=== PATIENT | female | born 1975 | race Caucasian/White ===

== ENCOUNTER 2023-04-25 08:01 | Outpatient (OUT) | payer BC, SELFPAY ==
[2023-04-25 08:34] LABS: Eosinophils Absolute Auto 0.1 10^3/uL (0.0-0.7); Hematocrit 40.5 % (36.0-48.0); Hemoglobin 13.3 g/dL (12.0-16.0); Immature Granulocytes Abs Auto 0.01 10^3/uL (0.00-0.03); Immature Granulocytes Pct Auto 0.3 % (0.0-0.5); Lymphocytes Absolute Auto 1.4 10^3/uL (1.2-3.8); Lymphocytes Percent Auto 36.5 % (20.5-60.0); Mean Corpuscular HGB Conc 32.8 g/dL (29.9-35.2); Mean Corpuscular Hemoglobin 30.6 pg (26.7-34.0); Mean Corpuscular Volume 93.1 fL (81.0-99.0); Mean Platelet Volume 10.8 fL (9.5-13.5); Monocytes Absolute Auto 0.3 10^3/uL (0.3-0.8); Monocytes Percent Auto 8.1 % (1.7-12.0); Neutrophils Absolute Auto 2.1 10^3/uL (1.4-6.5); Neutrophils Percent Auto 52.1 % (43.0-75.0); Platelet Count 245 10^3/uL (150-450); Red Blood Count 4.35 10^6/uL (4.20-5.40); Red Cell Distribution Width 12.5 % (11.0-15.0)
[2023-04-25 09:09] LABS: Alanine Aminotransferase 20 U/L (14-59); Albumin Globulin Ratio 0.8; Albumin Level 3.3 g/dL (3.4-5.0); Alkaline Phosphatase 55 U/L (46-116); Anion Gap 11.8; Aspartate Amino Transferase 17 U/L (15-37); BUN Creatinine Ratio 20.6; Bilirubin Total 0.4 mg/dL (0.2-1.0); Calcium 8.7 mg/dL (8.5-10.1); Carbon Dioxide 28.2 mmol/L (21.0-32.0); Chloride 103 mmol/L (98-107); Chol HDL Ratio 2.9; Cholesterol 209 mg/dL (<=200); Estimated GFR (African America >60 (>=60); Estimated GFR (Non-African Ame >60 (>=60); Free T3 2.52 pg/mL (2.18-3.98); Glucose 94 mg/dL (74-106); HDL Cholesterol 73 mg/dL (40-60); Sodium 139 mmol/L (136-145); Thyroid Stimulating Hormone 1.341 uIU/mL (0.358-3.740); Total Protein 7.3 g/dL (6.4-8.2); Triglycerides 63 mg/dL (<=150); VLDL CHOLESTEROL 12.6 mg/dL
[2023-04-25 12:43] LABS: Estimated Average Glucose 103 mg/dL; Glycohemoglobin A1C 5.2 % (4.5-6.2)
== END 2023-04-25 08:02 | disposition home or self-care (01) ==
LOC: LAB 08:02
PROVIDERS: PCP Family Medicine; Visit Provider Family Medicine
DX: Z00.00 Encounter for general adult medical examination without abnormal findings (principal)
CPT/HCPCS: 36415; 80053; 80061; 82306; 83036; 84436; 84443; 84481; 85025

== ENCOUNTER 2023-12-22 07:29 | Outpatient (OUT) | payer BC, SELFPAY ==
--- NOTE | 2023-12-22 07:32 | MM_ITS ---
Patient Name: LETI FRASER MR#: [id number] : 1975 Exam Date: 12/22/2023 Ordering Doctor: DR. ZAKIA CRUZ D.O. RADIOLOGY REPORT PROCEDURE: MM TOMOSYNTHESIS SCREENING BI COMPARISON: MG MAMM SCREEN 3D MAZIN CAD, 02/25/2022. MG MAMM SCREEN 3D MAZIN CAD, 01/29/2021. MG MAMM SCREEN MAZIN W CAD, 12/20/2019. MG MAMM MAZIN SCRN W CAD DIG, 11/21/2012. INDICATIONS: Screening Calculator Name NCI Breast Cancer Risk Assessment Tool 5 Year Breast Cancer Risk 0.90% Lifetime Breast Cancer Risk 9.30% Personal Breast Cancer No Personal Ovarian Cancer No Treatments None Family Cancers Grandmother-maternal with breast cancer at age 70; Grandmother-paternal with breast cancer at age 70. LOCATION: [facility] BREAST COMPOSITION: The breasts are extremely dense, which lowers the sensitivity of mammography. FINDINGS: DIAGNOSTIC CATEGORY 1--NEGATIVE. RIGHT BREAST: No significant suspicious finding. No significant change has occurred. LEFT BREAST: No significant suspicious finding. No significant change has occurred. RECOMMENDATIONS: ROUTINE MAMMOGRAM AND CLINICAL EVALUATION IN 12 MONTHS. PLEASE NOTE: A NORMAL MAMMOGRAM DOES NOT EXCLUDE THE POSSIBILITY OF BREAST CANCER. A CLINICALLY SUSPICIOUS PALPABLE LUMP SHOULD BE BIOPSIED. Dictated by: Heladio Willis M.D. on 12/22/2023 at 10:26 Approved by: Heladio Willis M.D. on 12/22/2023 at 10:30
== END 2023-12-22 07:30 | disposition home or self-care (01) ==
LOC: MAMMO 07:29
PROVIDERS: PCP Family Medicine; Visit Provider Obstetrics & Gynecology
DX: Z12.31 Encounter for screening mammogram for malignant neoplasm of breast (principal); Z80.3 Family history of malignant neoplasm of breast
CPT/HCPCS: 77063; 77067

== ENCOUNTER 2024-04-23 13:11 | Outpatient (OUT) | payer BC, SELFPAY ==
--- NOTE | 2024-04-23 13:14 | XR_ITS ---
The [address] [address] Patient Name: LETI FRASER MRN: [id number] date: 1975 Sex: F Assigned Patient Location: [facility] Current Patient Location: Accession/Order Number: [id number] Exam Date: 04/23/2024 13:16 Report Date: 04/24/2024 16:04 At the request of: MASSIMO CORADO Procedure: XR hip BI w PEL 1V EXAMINATION: XR hip BI w PEL 1V HISTORY: Bilateral Hip Pain COMPARISON: No relevant comparison available. FINDINGS: RIGHT FINDINGS: BONES: No significant arthropathy or acute abnormality. SOFT TISSUES: No visible soft tissue swelling. OTHER: Negative. LEFT FINDINGS: BONES: No significant arthropathy or acute abnormality. SOFT TISSUES: No visible soft tissue swelling. OTHER: Negative. XR/XR hip BI w PEL 1V IMPRESSION: RIGHT CONCLUSION: No acute bone abnormality or significant degenerative changes. LEFT CONCLUSION: No acute bone abnormality or significant degenerative changes. Electronically authenticated by: RICKEY SALMON Date: 04/24/2024 16:04
--- OUTSIDE RECORDS SUMMARY | 2024-04-23 13:29 | XMS_ITS | CCD ---
Author Organization [facility]iniSym[facility] Care Team Providers Care Soil Conservation Aide Name Role Phone PHYSICIAN, DEFAULT Unavailable Unavailable PHYSICIAN, DEFAULT Unavailable Unavailable Unavailable Unavailable ELIZABETH GOMEZ Admitting Unavailable ELIZABETH GOMEZ Attending Unavailable KIEPERT, GONZALEZ Primary Care Unavailable DR ALO MARKS V Consulting Unavailable ELIZABETH GOMEZ Consulting Unavailable SALVADORFRANCIA TROY Admitting Unavailable SALVADORFRANCIA ALVARADO Attending Unavailable KIEPERT, EXETER Primary Care Unavailable FRANCIA FRANCO Consulting Unavailable JACEK, DR KEYS Admitting Unavailable DR MASSIMO READ Attending Unavailable KIEPERT, GONZALEZ Primary Care Unavailable DR MASSIMO READ Consulting Unavailable KIEPERT, GONZALEZ Primary Care Unavailable SALVADOR, FRANCIA Admitting Unavailable SALVADORFRANCIA TROY Attending Unavailable SALVADORFRANCIA TROY Consulting Unavailable ANGELICA LOWERY Admitting Unavailable ANGELICA LOWERY Attending Unavailable KIEPERT, GONZALEZ Primary Care Unavailable ANGELICA LOWERY Consulting Unavailable Leon, Ms. Odalys Gusman Referring Unavailable Leon, Ms. Odalys Gusman Attending Unavailable ELIZABETH GOMEZ Attending Unavailable Massimo Read MD Primary Care Provider [phone] Allergies Allergy Classification Reported Allergen(s) Allergy Type Date of Onset Reaction(s) Facility (7 sources) Trimethoprim; Translations: [Trimethoprim TABS] Drug Allergy 9 [facility] Work Phone: (4 sources) Sulfamethoxazole-TMP DS TABS; Translations: [Sulfamethoxazole-TM P DS TABS] Allergy to drug (finding) [facility] Work Phone: (3 sources) Sulfamethoxazole Allergy to substance 9 [facility] Medications Current Medications Medication Drug Class(es) Dates Sig (Normalized) Sig (Original) ALPRAZolam 0.25 mg oral tablet (3 sources) Benzodiazepine ALPRAZolam (Xana x) 0.25 MG tablet 1 (one) time each day at the same time. Active clobetasol propionate 0.0005 mg/mg topical ointment (3 sources) Corticosteroid Start: 2022 clobetasol (Temovate) 0.05 % ointment Indications: Vulvar irritation Apply thin light layer to affected tissues externally twice daily x 14 days, daily x 7 days, then every other day x 7 days 45 g 1 2022 Active ethinyl estradiol 0.035 mg / norgestimate 0.25 mg oral tablet (5 sources) Progestin, Estrogen Start: 12-05-2023 End: 12-04-2024 norgestimate-ethiny l estradiol (Munira) 0.25-35 MG-MCG tablet Indications: Oral contraceptive pill surveillance Take 1 tablet by mouth Daily 84 tablet 3 12/05/2023 12/04/2024 Active Start: 01-26-2023 End: 01-26-2024 norgestimate-ethinyl estradi ol (Munira) 0.25-35 MG-MCG tablet Indications: Encounter for surveillance of contraceptive pills Take 1 tablet by mouth in the morning. 28 tablet 12 01/26/2023 12/05/2023 Discontinued MULTIPLE VITAMIN IV (3 sources) MULTIPLE VITAMIN IV 1 (one) time each day at the same time. Active phentermine hydrochloride 37.5 mg oral tablet (2 sources) Sympathomimetic Amine Anorectic Start: 024 Adipex-P 37.5 MG tablet 1 (one) time each day at the same time 11/06/2023 Active vitamin b12 1 mg oral tablet (3 sources) Vitamin B12 take 1 tablet by mouth in the morning cyanocobalamin (Vitamin B-12) 1000 MCG tablet Take 1,000 mcg by mouth in the morning. Active Completed/Discontinued Medications Medication Drug Class(es) Dates Sig (Normalized) Sig (Original) amoxicillin 875 mg / clavulanate 125 mg oral tablet (2 sources) Penicillin-class Antibacterial Start: 10-11-19 End: 03-24-19 take 1 tablet by mouth every twelve hours Amoxicillin-Pot Clavulanate 875-125 MG Oral Tablet take 1 tablet by mouth every 12 hours for 7 days Quantity: 14 Refills: 0 Ordered: 11-Oct-2019 DO Start : 11-Oct-2019 End : 24-Mar-2021 Complete azithromycin 250 mg oral tablet (2 sources) Macrolide Antimicrobial Start: 01-09-20 End: 03-24-19 Azithromycin 250 MG Oral Tablet TAKE 2 TABLETS BY MOUTH TODAY, THEN TAKE 1 TABLET DAILY FOR 4 DAYS Quantity: 6 Refills: 0 Ordered: 09-Jan-2020 DO Start : 09-Jan-2020 End : 24-Mar-2021 Complete betamethasone 0.5 mg/ml / clotrimazole 10 mg/ml topical cream (4 sources) Azole Antifungal, Corticosteroid Start: 04-18-19 Clotrimazole-Betameth asone 1-0.05 % External Cream APPLY TO AFFECTED AREA TWICE A DAY Quantity: 60 Refills: 0 Ordered: 18-Apr-2019 DO Start : 18-Apr-2019 Active cyclobenzaprine hydrochloride 10 mg oral tablet (2 sources) Muscle Relaxant Start: 12-30-19 End: 03-24-19 22 take 1 tablet by mouth once daily at bedtime as needed Cyclobenzaprine HCl - 10 MG Oral Tablet TAKE 1 TABLET BY MOUTH EVERY DAY AT BEDTIME NEEDED Quantity: 30 Refills: 0 Ordered: 30-Dec-2019 DO Start : 30-Dec-2019 End : 24-Mar-2021 Complete DULoxetine 60 mg delayed release oral capsule (6 sources) Serotonin and Norepinephrine Reuptake Inhibitor Start: 03-24-19 22 take 1 capsule by mouth at bedtime DULoxetine HCl - 60 MG Oral Capsule Delayed Release Particles take 1 capsule by mouth at bedtime Quantity: 30 Refills: 0 Ordered: 24-Mar-2021 Odalys Cruz Start : 24-Mar-2021 Active fludrocortisone acetate 0.1 mg oral tablet (4 sources) Start: 04-08-19 21 take 1 tablet by mouth once daily Fludrocortisone Acetate 0.1 MG Oral Tablet TAKE 1 TABLET BY MOUTH EVERY DAY Quantity: 90 Refills: 0 Ordered: 05-May-2022 Odalys Cruz Start : 08-Apr-2020 Active Needs follow-up appointment for any further refills meclizine hydrochloride 25 mg oral tablet (2 sources) Antiemetic Start: 02-20-20 End: 03-24-19 take 1 tablet by mouth three times daily as needed Meclizine HCl - 25 MG Oral Tablet TAKE 1 TABLET BY MOUTH 3 TIMES A DAY NEEDED Quantity: 90 Refills: 0 Ordered: 20-Feb-2020 DO Start : 20-Feb-2020 End : 24-Mar-2021 Complete methylPREDNISolone 4 mg oral tablet (2 sources) Corticosteroid Start: 04-17-19 End: 03-24-19 methylPREDNISolone 4 MG Oral Tablet USE DIRECTED. Quantity: 1 Refills: 1 Ordered: 17-Apr-2020 Colton Mims MD Start : 17-Apr-2020 End : 24-Mar-2021 Complete predniSONE 20 mg oral tablet (2 sources) Start: 12-30-19 End: 03-24-19 take 2 tablets by mouth once daily predniSONE 20 MG Oral Tablet TAKE 2 TABLETS BY MOUTH EVERY DAY FOR 5 DAYS Quantity: 10 Refills: 0 Ordered: 30-Dec-2019 DO Start : 30-Dec-2019 End : 24-Mar-2021 Complete Sprintec 28 0.25-35 MG-MCG Oral Tablet (4 sources) Start: 12-25-19 take 1 tablet by mouth once daily Sprintec 28 0.25-35 MG-MCG Oral Tablet TAKE 1 TABLET BY MOUTH EVERY DAY Quantity: 84 Refills: 0 Ordered: 25-Dec-2019 DO Start : 25-Dec-2019 Active tranexamic acid 650 mg oral tablet (2 sources) Antifibrinolytic Agent Start: 04-18-19 End: 03-24-19 take 2 tablets by mouth three times daily Tranexamic Acid 650 MG Oral Tablet TAKE 2 TABLETS BY MOUTH 3 TIMES A DAY FOR 5 DAYS Quantity: 30 Refills: 0 Ordered: 18-Apr-2019 DO Start : 18-Apr-2019 End : 24-Mar-2021 Complete Problems Active Problems Problem Classification Problem Date Documented Date Episodic/Chronic Anxiety disorders (4 sources) Anxiety; Translations: [Anxiety state, unspecified] Chronic Cardiac dysrhythmias (4 sources) Postural orthostatic tachycardia syndrome ; Translations: [Other specified cardiac dysrhythmias] Chronic Cardiac dysrhythmias (4 sources) Palpitations; Translations: [Palpitations] Episodic Conditions associated with dizziness or vertigo (8 sources) Postural dizziness; Translations: [Dizziness and giddiness] Episodic Contraceptive and procreative management (2 sources) Oral contraception; Translations: [Encounter for surveillance of contraceptive pills] 12-05-2023 Episodic Deficiency and other anemia (1 source) Anemia, unspecified; Translations: [ANEMIA UNSPECIFIED] Onset: 12-03-2021 Episodic Nutritional deficiencies (1 source) Vitamin D deficiency, unspecified; Translations: [VITAMIN D DEFICIENCY UNSPECIFIED] Onset: 12-03-2021 Chronic Other screening for suspected conditions (not mental disorders or infectious disease) (8 sources) Encounter for screening mammogram for malignant neoplasm of breast; Translations: [Cancer cervix screening status] Onset: 02-25-2022 Episodic Residual codes; unclassified (1 source) Family history of malignant neoplasm of breast; Translations: [FAMILY HX MALIG NEOPLASM OF BREAST] Onset: 02-28-2022 Episodic Syncope (4 sources) Near syncope; Translations: [Syncope and collapse] Episodic Unclassified (2 sources) CONTACT W/AND (SUSP) EXPOS COVID-19; Translations: [CONTACT W/AND (SUSP) EXPOS COVID-19] Onset: 10-12-2021 Viral infection (1 source) COVID-19; Translations: [COVID-19] Onset: 10-12-2021 Past or Other Problems Problem Classification Problem Date Documented Da te Episodic/Chronic Immunizations and screening for infectious disease (4 sources) Encounter for immunization; Translations: [ENCOUNTER FOR IMMUNIZATION] Onset: 03-23-2021 Episodic Unclassified (1 source) CONTACT W/AND (SUSP) EXPOS COVID-19; Translations: [CONTACT W/AND (SUSP) EXPOS COVID-19] Onset: 10-11-2021 Results Test Name Value Interpretation Reference Range Facility Office Visit (Neuro-General) on 10-19-2022 Follow-up visit Patient Discussion/Summary Discussed role of medicine, importance of taking medications, potential risks, benefits, and precautions to be taken. Reviewed sleep hygiene and dietary modifications. Follow-up in 1 year. Diagnoses/Problems Assessed POTS (postural orthostatic tachycardia syndrome) (427.89) (G90.A) Postural dizziness (780.4) (R42) Palpitations (785.1) (R00.2) Near syncope (780.2) (R55) Orders POTS (postural orthostatic tachycardia syndrome) Renew: Fludrocortisone Acetate 0.1 MG Oral Tablet; TAKE 1 TABLET BY MOUTH EVERY DAY Chief Complaint POTS Neurologic Evaluation. An interactive audio and video telecommunication system which permits real time communications between the patient (at the originating site) and provider (at the distant site) was utilized to provide this telehealth service. History of Present Illness Patient being assessed today for follow-up of POTS. She reports that her symptoms have been well controlled. Orthostatics are stable. Denies palpitations. Denies episodes of syncope. We will continue the fludrocortisone as she has been taking it. Discussed role of medicine, importance of taking medications, potential risks, benefits, and precautions to be taken. Reviewed sleep hygiene and dietary modifications. Follow-up in 1 year. This note was created with voice recognition software and was not corrected for typographical or grammatical errors Review of Systems Per HPI Active Problems Problems Anxiety (300.00) (F41.9) Dizziness and giddiness (780.4) (R42) Near syncope (780.2) (R55) Palpitations (785.1) (R00.2) Postural dizziness (780.4) (R42) POTS (postural orthostatic tachycardia syndrome) (427.89) (G90.A) Allergies Medication Sulfamethoxazole-TMP DS TABS Recorded By: Colton Mims; 03/02/2020 10:38:15 AM Trimethoprim TABS Recorded By: Colton Mims; 03/02/2020 10:38:15 AM Current Meds Medication NameInstruction Clotrimazole-Betameth asone 1-0.05 % External CreamAPPLY TO AFFECTED AREA TWICE A DAY DULoxetine HCl - 60 MG Oral Capsule Delayed Release Particlestake 1 capsule by mouth at bedtime Fludrocortisone Acetate 0.1 MG Oral TabletTAKE 1 TABLET BY MOUTH EVERY DAY Sprintec 28 0.25-35 MG-MCG Oral TabletTAKE 1 TABLET BY MOUTH EVERY DAY Signatures Electronically signed by : SID Jiang; Oct 19 2022 3:35PM EST (Author) Normal TouchNUMBER26 MG MAMM SCREEN 3D MAZIN CADon 02-25-2022 MG MAMM SCREEN 3D MAZIN CAD Patient: DELANEY FRASER Exam Date: 02/25/2022 : 1975 Gender:F Ordering : DR. ELIZABETH GOMEZ D.O. Admission #: [id number] Family : Order #: [id number] CLICK HERE TO VIEW EXAM RADIOLOGY REPORT PROCEDURE: MAMMOGRAM SCREENING 3D BILATERAL CAD COMPARISON: MG MAMM SCREEN MAZIN W CAD, 12/20/2019. MG MAMM SCREEN 3D MAZIN CAD, 01/29/2021. INDICATIONS: Screening mammography Calculator Name NCI Breast Cancer Risk Assessment Tool 5 Year Breast Cancer Risk 0.90% Lifetime Breast Cancer Risk 9.60% Personal Breast Cancer No Personal Ovarian Cancer No Treatments None Family Cancers Grandmother-maternal with breast cancer at age 70; Grandmother-paternal with breast cancer at age 70. LOCATION: [facility] BREAST COMPOSITION: Extremely dense, which lowers the sensitivity of mammography. FINDINGS: DIAGNOSTIC CATEGORY 1--NEGATIVE. NO CHANGE FROM COMPARISON ASSESSMENT. Scattered benign-appearing lymph nodes are present. RIGHT BREAST: No significant suspicious finding. LEFT BREAST: No significant suspicious finding. RECOMMENDATIONS: ROUTINE MAMMOGRAM AND CLINICAL EVALUATION IN 12 MONTHS. PLEASE NOTE: A NORMAL MAMMOGRAM DOES NOT EXCLUDE THE POSSIBILITY OF BREAST CANCER. A CLINICALLY SUSPICIOUS PALPABLE LUMP SHOULD BE BIOPSIED. Dictated by: Alo Marks MD on 02/25/2022 at 09:42 Approved by: Alo Marks MD on 02/25/2022 at 09:49 Normal [facility] VIT D 25-OH LABCORPon 2021 Vitamin D, 25-Hydroxy 48.6 ng/mL Normal 30.0-100.0 [facility] Comment on above: Result Comment: Fior min D deficiency has been defined by the [place] of Medicine and an Endocrine Society practice guideline as a level of serum 25-OH vitamin D less than 20 ng/mL (1,2). The Endocrine Society went on to further define vitamin D insufficiency as a level between 21 and 29 ng/mL (2). 1. IOM ([place] of Medicine). 2010. Dietary reference intakes for calcium and D. [place]: The National Academies Press. 2. Mac DIAZ, Latrice JUÁREZ, Rosa DAVILA, et al. Evaluation, treatment, and prevention of vitamin D deficiency: an Endocrine Society clinical practice guideline. JCEM. 2010; 96(7):1911-30. Performed By: #### V ITADLC #### [facility] [address] [address] [address] Kiesha Monk T4 LABCORPon 11-27-2021 T4 [Mass/Vol] 6.9 ug/dL Normal 4.5-12.0 [facility] Comment on above: Performed By: #### T 4LC #### [facility] [address] [place] [address] Dr. Kiesha Monk CBC AUTO DIFFon 11-26-2021 BASO # 0.0 103/ul Normal 0.0-0.1 [facility] Comment on above: Performed By: #### C BC #### [facility] [address] [place] [address] Dr. Kiesha Monk Basophils/100 WBC (Bld) 0.5 % Normal 0.2-2.0 [facility] Comment on above: Performed By: #### C BC #### [facility] [address] [place] [address] Dr. Kiesha Monk EO # 0.1 103/ul Normal 0.0-0.7 [facility] Comment on above: Performed By: #### C BC #### [facility] [address] [place] [address] Dr. Kiesha Monk Eosinophils/100 WBC (Bld) 1.2 % Normal 0.9-7.0 [facility] Comment on above: Performed By: #### C BC #### [facility] [address] [place] [address] Dr. Kiesha Monk Erythrocyte distribution width (RBC) [Ratio] 12.6 % Normal 11.0-15.0 [facility] Comment on above: Performed By: #### C BC #### [facility] [address] [place] [address] Dr. Kiesha Monk Hematocrit (Bld) [Volume fraction] 40.8 % Normal 36.0-48.0 [facility] Comment on above: Performed By: #### C BC #### [facility] [address] [place] [address] Dr. Kiesha Monk Hemoglobin (Bld) [Mass/Vol] 13.7 g/dL Normal 12.0-16.0 [facility] Comment on above: Performed By: #### C BC #### [facility] [address] [place] [address] Dr. Kiesha Monk IG # 0.01 10e3/ul Normal 0.00-0.03 [facility] Comment on above: Performed By: #### C BC #### [facility] [address] [place] [address] Dr. Kiesha Monk IG % 0.2 % Normal 0.0-0.5 [facility] Comment on above: Performed By: #### C BC #### [facility] [address] [place] [address] Dr. Kiesha Monk LYMPH # 1.8 103/ul Normal 1.2-3.8 [facility] Comment on above: Performed By: #### C BC #### [facility] [address] [place] [address] Dr. Kiesha Monk Lymphocytes/100 WBC (Bld) 31.3 % Normal 20.5-60.0 [facility] Comment on above: Performed By: #### C BC #### [facility] [address] [place] [address] Dr. Kiesha Monk MANUAL DIFF REQ NO Normal [facility] Comment on above: Performed By: #### C BC #### [facility] [address] [place] [address] Dr. Kiesha Monk MCH (RBC) [Entitic mass] 31.6 pg Normal 26.7-34.0 [facility] Comment on above: Performed By: #### C BC #### [facility] [address] [place] [address] Dr. Kiesha Monk MCHC (RBC) [Mass/Vol] 33.6 g/dL Normal 29.9-35.2 [facility] Comment on above: Performed By: #### C BC #### [facility] [address] [place] [address] Dr. Kiesha Monk MCV (RBC) [Entitic vol] 94.2 fL Normal 81.0-99.0 [facility] Comment on above: Performed By: #### C BC #### [facility] [address] [place] [address] Dr. Kiesha Monk MONO # 0.5 103/ul Normal 0.3-0.8 [facility] Comment on above: Performed By: #### C BC #### [facility] [address] [place] [address] Dr. Kiesha Monk Monocytes/100 WBC (Bld) 8.2 % Normal 1.7-12.0 [facility] Comment on above: Performed By: #### C BC #### [facility] [address] [place] [address] Dr. Kiesha Monk NEUT # 3.3 103/ul Normal 1.4-6.5 [facility] Comment on above: Performed By: #### C BC #### [facility] [address] [place] [address] Dr. Kiesha Monk Neutrophils/100 WBC (Bld) 58.6 % Normal 43.0-75.0 [facility] Comment on above: Performed By: #### C BC #### [facility] [address] [place] [address] Dr. Kiesha Monk Platelet mean volume (Bld) [Entitic vol] 10.7 fL Normal 9.5-13.5 [facility] Comment on above: Performed By: #### C BC #### [facility] [address] [place] [address] Dr. Kiesha Monk PLT 210 103/ul Normal 150-450 [facility] Comment on above: Performed By: #### C BC #### [facility] [address] [place] [address] Dr. Kiesha Monk RBC 4.33 106/ul Normal 4.20-5.40 [facility] Comment on above: Performed By: #### C BC #### [facility] [address] [place] [address] Dr. Kiesha Monk WBC 5.7 103/ul Normal 4.0-11.0 [facility] Comment on above: Performed By: #### C BC #### [facility] [address] [place] [address] Dr. Kiesha Monk FREE T3on 11-26-2021 FREE T3 2.65 pg/mlL Normal 2.18-3.98 [facility] Comment on above: Performed By: #### T SH, LIPID, CMP, FT3 #### [facility] [address] [address] [address] Kiesha Monk GLYCOHEMOGLOBIN A1Con 2021 ADA RECOMMENDATION SEE BELOW Normal [facility] Comment on above: Result Comment: ADA RECOMMENDED LIMIT 4.0 - 6.0 ADA THERAPEUTIC TARGET < 7.0 ACTION SUGGESTED > 7.0 Performed By: #### A 1C #### [facility] [address] [address] [address] Kiesha Monk Glucose [Mass/Vol] 103 mg/dL Normal [facility] Comment on above: Performed By: #### A 1C #### [facility] [address] [address] [address] Kiesha Monk HbA1c (Bld) [Mass fraction] 5.2 % Normal 4.5-6.2 [facility] Comment on above: Performed By: #### A 1C #### [facility] [address] [address] [address] Kiesha Monk LIPID PROFILEon 11-26-2021 CHOL-HDL RATIO NORM SEE BELOW Normal [facility] Comment on above: Result Comment: 3.3 - 4.4 LOW RISK 4.4 - 7.1 AVERAGE RISK 7.1 - 11.0 MODERATE RISK >11.0 HIGH RISK Performed By: #### T SH, LIPID, CMP, FT3 #### [facility] [address] [address] [address] Kiesha Monk Cholesterol [Mass/Vol] 225 mg/dL Critically high <=200 [facility] Comment on above: Performed By: #### T SH, LIPID, CMP, FT3 #### [facility] [address] [address] [address] Kiesha Monk Cholesterol in HDL [Mass/Vol] 70 mg/dL Critically high 40-60 [facility] Comment on above: Performed By: #### T SH, LIPID, CMP, FT3 #### [facility] [address] [address] [address] Kiesha Monk Cholesterol in LDL [Mass/Vol] 140.4 mg/dL Normal [facility] Comment on above: Performed By: #### T SH, LIPID, CMP, FT3 #### [facility] [address] [address] [address] Kiesha Monk Cholesterol.total/C holesterol in HDL [Mass ratio] 3.2 {ratio} Normal [facility] Comment on above: Performed By: #### T SH, LIPID, CMP, FT3 #### [facility] [address] [address] [address] Kiesha Monk HDL NORMAL > or = 60 mg/dl - LO W CARDIOVASCULAR RISK <40 mg/dl - HIGH CARDIOVASCULAR RISK Normal [facility] Comment on above: Performed By: #### T SH, LIPID, CMP, FT3 #### [facility] [address] [address] [address] Kiesha Monk LDL CALC NORMAL SEE BELOW Normal [facility] Comment on above: Result Comment: <100 mg/dl OPTIMAL 100 - 129 mg/dl NEAR OR ABOVE OPTIMAL 130 - 159 mg/dl BORDERLINE HIGH 160 - 189 mg/dl HIGH >190 mg/dl VERY HIGH Performed By: #### T SH, LIPID, CMP, FT3 #### [facility] [address] [address] [address] Kiesha Monk Triglyceride [Mass/Vol] 73 mg/dL Normal <=150 [facility] Comment on above: Performed By: #### T SH, LIPID, CMP, FT3 #### [facility] [address] [address] [address] Kiesha Monk VLDL CALC 14.6 mg/dL Normal [facility] Comment on above: Performed By: #### T SH, LIPID, CMP, FT3 #### [facility] [address] [address] [address] Kiesha Monk PROF 14(COMP METB)on 022 Albumin [Mass/Vol] 3.6 g/dL Normal 3.4-5.0 [facility] Comment on above: Performed By: #### T SH, LIPID, CMP, FT3 #### [facility] [address] [place] [address] Dr. Kiesha Monk Albumin/Globulin [Mass ratio] 1.0 {ratio} Normal [facility] Comment on above: Performed By: #### T SH, LIPID, CMP, FT3 #### [facility] [address] [place] [address] Dr. Kiesha Monk ALP [Catalytic activity/Vol] 63 U/L Normal 46-116 [facility] Comment on above: Performed By: #### T SH, LIPID, CMP, FT3 #### [facility] [address] [place] [address] Dr. Kiesha Monk ALT [Catalytic activity/Vol] 23 U/L Normal 14-59 [facility] Comment on above: Performed By: #### T SH, LIPID, CMP, FT3 #### [facility] [address] [place] [address] Dr. Kiesha Monk Anion gap [Moles/Vol] 10.4 mmol/L Normal [facility] Comment on above: Performed By: #### T SH, LIPID, CMP, FT3 #### [facility] [address] [place] [address] Dr. Kiesha Monk AST [Catalytic activity/Vol] 24 U/L Normal 15-37 [facility] Comment on above: Performed By: #### T SH, LIPID, CMP, FT3 #### [facility] [address] [place] [address] Dr. Kiesha Monk Bilirubin [Mass/Vol] 0.5 mg/dL Normal 0.2-1.0 [facility] Comment on above: Performed By: #### T SH, LIPID, CMP, FT3 #### [facility] [address] [place] [address] Dr. Kiesha Monk Calcium [Mass/Vol] 9.1 mg/dL Normal 8.5-10.1 [facility] Comment on above: Performed By: #### T SH, LIPID, CMP, FT3 #### [facility] [address] [place] [address] Dr. Kiesha Monk Chloride [Moles/Vol] 103 mmol/L Normal 98-107 [facility] Comment on above: Performed By: #### T SH, LIPID, CMP, FT3 #### [facility] [address] [address] [address] Kiesha Monk CO2 [Moles/Vol] 29.8 mmol/L Normal 21.0-32.0 [facility] Comment on above: Performed By: #### T SH, LIPID, CMP, FT3 #### [facility] [address] [place] [address] Dr. Kiesha Monk Creatinine [Mass/Vol] 0.81 mg/dL Normal 0.55-1.02 [facility] Comment on above: Performed By: #### T SH, LIPID, CMP, FT3 #### [facility] [address] [place] [address] Dr. Kiesha Monk EGFR-AF SAMMARINESE >60 Normal >=60 [facility] Comment on above: Performed By: #### T SH, LIPID, CMP, FT3 #### [facility] [address] [address] [address] Kiesha Monk EGFR-NON AF SAMMARINESE >60 Normal >=60 [facility] Comment on above: Performed By: #### T SH, LIPID, CMP, FT3 #### [facility] [address] [place] [address] Dr. Kiesha Monk Globulin (S) [Mass/Vol] 3.5 g/dL Normal [facility] Comment on above: Performed By: #### T SH, LIPID, CMP, FT3 #### [facility] [address] [address] [address] Kiesha Monk Glucose [Mass/Vol] 96 mg/dL Normal 74-106 [facility] Comment on above: Performed By: #### T SH, LIPID, CMP, FT3 #### [facility] [address] [place] [address] Dr. Kiesha Monk Potassium [Moles/Vol] 4.2 mmol/L Normal 3.5-5.1 [facility] Comment on above: Performed By: #### T SH, LIPID, CMP, FT3 #### [facility] [address] [place] [address] Dr. Kiesha Monk Protein [Mass/Vol] 7.1 g/dL Normal 6.4-8.2 [facility] Comment on above: Performed By: #### T SH, LIPID, CMP, FT3 #### [facility] [address] [place] [address] Dr. Kiesha Monk Sodium [Moles/Vol] 139 mmol/L Normal 136-145 [facility] Comment on above: Performed By: #### T SH, LIPID, CMP, FT3 #### [facility] [address] [place] [address] Dr. Kiesha Monk Urea nitrogen [Mass/Vol] 13.0 mg/dL Normal 7.0-18.0 [facility] Comment on above: Performed By: #### T SH, LIPID, CMP, FT3 #### [facility] [address] [place] [address] Dr. Kiesha Monk Urea nitrogen/Creatinine [Mass ratio] 16.0 mg/mg Normal [facility] Comment on above: Performed By: #### T SH, LIPID, CMP, FT3 #### [facility] [address] [place] [address] Dr. Kiesha Monk TSHon 11-26-2021 TSH 2.116 uIU/mL Normal 0.358-3.740 [facility] Comment on above: Performed By: #### T SH, LIPID, CMP, FT3 #### [facility] [address] [place] [address] Dr. Kiesha Monk ASYMPTOMATIC COVID-19 ANTIGE Non 10-11-2021 EUA Statement SEE BELOW Normal [facility] Comment on above: Result Comment: This test has not been FDA cleared or approved, but has been authorized by the FDA under an Emergency Use Authorization (EUA) for use by authorized laboratories certified under CLIA that meet the requirements to perform moderate or high complexity testing. This test has been authorized only for the detection of proteins from SARS-CoV-2, not for any other viruses or pathogens. The emergency use of this test is authorized for the duration of the declaration that circumstances exist justifying the authorization of emergency use of in vitro diagnostic tests for detection and/or diagnosis of Covid-19 under section 564(b)(1) of the Act, 21 U.S.C. 360bbb-3(b)(1), unless the declaration is terminated or authorization is revoked sooner. Performed By: #### C VDAGA ####[facility] [id number] [address]Dr. Kiesha Mnok SARS-CoV-2 (COVID-19) RNA DEION+probe Ql (Unsp spec) Positive Critically abnormal NEGATIVE [facility] Comment on above: Result Comment: SARS -CoV-2 antigen present; does not rule out coinfection with other pathogens. Performed By: #### C VDAGA ####[facility] [id number] [address]Dr. Kiesha Monk Covid-19 PCR (CVDTB)on 09-17 SARS-CoV-2 (COVID-19) RNA DEION+probe Ql (Unsp spec) Detected Critically abnormal NOT DETECTED [facility] Comment on above: Result Comment: This test is not yet approved or cleared by the [place] FDA. When there are no FDA-approved or cleared tests available, and other criteria are met, FDA can make tests available under an emergency access mechanism called an Emergency Use Authorization (EUA). The EUA for this test is supported by the [employer] and Human Service's declaration that circumstances exist to justify the emergency use of in vitro diagnostics for the detection and/or diagnosis of the virus that causes COVID-19. This EUA will remain in effect for the duration of the COVID-19 declaration justifying emergency of IVDs, unless it is terminated or revoked by the FDA (after which the test may no longer be used). Performed By: #### C VDTBH #### [facility] [address] [address] [address] Kiesha Monk Provider Letter01-04-2021 Provider Letter January 04, 2021 January 04, 2021 DELANEY FRASER [address] [id number] DELANEY FRASER 1975 Dear Richard , We have been trying to reach you with no success. It is important that you return our call regarding your referral from Dr. Jacek Cuadra upon receiving this letter. Also, at the time of your call, please provide us with your current information. Thank you for your prompt attention to this matter. Sincerely, Dr. Joce Baird General Surgery office [phone] [facility] Physician Referralon 021 Physician Referral [phone] [id number] [facility] CNOVSPon 12-10-2018 CNOVSP Visit (SP) Office (HEMAS[place]) DELANEY FRASER ([id number]) 1975 F Date Time Provider Department 12/10/18 2:45 PM HENRIK CONDE) HEMASA During your visit today, we recorded the following information about you: Temperature Pulse Respiration Blood pressure 98 degrees 90/minute 18/minute 150/79 Weight Height Last Period 71.5 kg 1.682 m 11/19/18 Henrik Conde MD 12/10/2018 6:06 PM Signed PATIENT NAME: Delaney Fraser CLINIC NO.: [id number] ATTENDING PHYSICIAN: Henrik Conde MD DATE OF SERVICE: December 10, 2018 This document has been created with the use of voice recognition technology. It may contain inaccuracies, misspellings, inaccurate syntax or inappropriate word context that escaped review. Dear MARY Wheeler [address] [phone] thank you for referring Miss Delaney Fraser for an opinion regarding leukopenia. CHIEF COMPLAINT: I have low blood counts HPI: Delaney Fraser is a 43 year old year old female with no significant past medical history whom during a recent follow-up in September 2018 was noted to have a white count of 3.8. She does not recall having any prior episode of leukopenia. As any changes in medications. She denies any history of autoimmune diseases. She denies any use of supplements. As a history of heavy alcohol abuse. She denies any liver disease. She also denies any HIV risk factors. Her CBC was repeated in November 13, 2018 and at that point her CBC was normal. Current Outpatient Medications: Multivitamin capsule Take 1 capsule by mouth once daily. cyanocobalamin (VITAMIN B-12) 1,000 mcg tab Take 1,000 mcg by mouth once daily. No current facility-administered medications for this visit. ALLERGIES Allergen Reactions - Sulfamethoxazole Unknown - Trimethoprim Unknown PAST MEDICAL HISTORY Diagnosis Date - Leukopenia PAST SURGICAL HISTORY Procedure Laterality Date - COLPOSCOPY W BX CERVIX FAMILY HISTORY Problem Relation Age of Onset - Cancer Father - Cancer Maternal Grandmother Social History Socioeconomic History Marital status: Spouse name: Not on file Number of children: Not on file Years of education: Not on file Highest education level: Not on file Occupational History Not on file Social Needs Financial resource strain: Not on file Food insecurity: Worry: Not on file Inability: Not on file Transportation needs: Medical: Not on file Non-medical: Not on file Tobacco Use Smoking status: Never Smoker Smokeless tobacco: Never Used Substance and Sexual Activity Alcohol use: Yes Comment: occ. Drug use: Never Sexual activity: Not on file Lifestyle Physical activity: Days per week: Not on file Minutes per session: Not on file Stress: Not on file Relationships Social connections: Talks on phone: Not on file Gets together: Not on file Attends oriental orthodox service: Not on file Active member of club or organization: Not on file Attends meetings of clubs or organizations: Not on file Relationship status: Not on file Intimate partner violence: Fear of current or ex partner: Not on file Emotionally abused: Not on file Physically abused: Not on file Forced sexual activity: Not on file Other Topics Concerns: Not on file Social History Narrative Not on file REVIEW OF SYSTEMS GENERAL: No weight loss, malaise or fevers. No night sweats. HEENT: Negative for headaches, No changes in hearing or vision, no nose bleeds or other nasal problems. RESPIRATORY: Negative for cough, wheezing and shortness of breath CARDIOVASCULAR: Negative for chest pain, leg swelling and palpitations GI: Negative for abdominal discomfort, blood in stools or black stools and change in bowel habits : Negative for dysuria, frequency and incontinence MUSCULOSKELETAL: Negative for joint pain or swelling, back pain, and muscle pain. SKIN: Negative for lesions, rash, and itching. HEMATOLOGY/LYMPHOLOGY Negative for prolonged bleeding, bruising easily, and swollen nodes. NEURO: Negative for numbness or tingling of hands/feet. No weakness. PHYSICAL EXAMINATION: BP 150/79 Pulse 90 Temp 36.7 ?C (98 ?F) (Oral) Resp 18 Ht 168.2 cm (5' 6.24 ) Wt 71.5 kg (157 lb 9.6 oz) LMP 11/19/2018 SpO2 99% BMI 25.25 kg/m? Wt 71.5 kg (157 lb 9.6 oz) BMI 25.25 kg/m2 Last 3 Encounter Wt Readings: Date: Wt: 12/10/2018 71.5 kg (157 lb 9.6 oz) General appearance:ECOG PERFORMANCE STATUS: 0- Fully active, able to carry on all pre-disease performance w/o restriction. Patient in NAD. Skin: Skin color, texture, turgor normal. No rashes or lesions. Eyes: Anicteric sclera. Pupils are equally round and reactive to light. Extraocular movements are intact. Lymph Nodes: No cervical, supraclavicular, axillary or inguinal adenopathy. Oropharynx: Lips, mucosa, and tongue normal. Back: No pain to percussion. Negative SLR test Lungs clear to auscultation, No wheezing or rhonchi Heart: RRR without murmur, gallop, or rubs. Abdomen soft, non-tender. No masses, organomegaly Extremities: No deformities. No edema Neuro: Gait and speech normal. Reflexes normal and symmetric. Muscular strength intact. Sensation grossly intact. Rectal: Deferred : Deferred LABS: Glucose (mg/dL) Date Value 12/10/2018 134 Potassium (mmol/L) Date Value 12/10/2018 3.8 Sodium (mmol/L) Date Value 12/10/2018 139 Chloride (mmol/L) Date Value 12/10/2018 103 CO2 (mmol/L) Date Value 12/10/2018 26 Creatinine (mg/dL) Date Value 12/10/2018 0.80 BUN (mg/dL) Date Value 12/10/2018 13 Anion Gap (mmol/L) Date Value 12/10/2018 10 Calcium (mg/dL) Date Value 12/10/2018 9.1 Protein, Total (g/dL) Date Value 12/10/2018 7.0 Albumin (g/dL) Date Value 12/10/2018 4.5 Bilirubin, Total (mg/dL) Date Value 12/10/2018 0.3 Alkaline Phosphatase (U/L) Date Value 12/10/2018 52 AST (U/L) Date Value 12/10/2018 19 ALT (U/L) Date Value 12/10/2018 11 WBC Date Value Ref Range Status 12/10/2018 5.89 3.70 - 11.00 k/uL Final RBC Date Value Ref Range Status 12/10/2018 4.19 3.90 - 5.20 m/uL Final Hemoglobin Date Value Ref Range Status 12/10/2018 13.5 11.5 - 15.5 g/dL Final Hematocrit Date Value Ref Range Status 12/10/2018 39.5 36.0 - 46.0 % Final MCV Date Value Ref Range Status 12/10/2018 94.3 80.0 - 100.0 fL Final MCH Date Value Ref Range Status 12/10/2018 32.2 26.0 - 34.0 pG Final MCHC Date Value Ref Range Status 12/10/2018 34.2 30.5 - 36.0 g/dL Final RDW-CV Date Value Ref Range Status 12/10/2018 12.3 11.5 - 15.0 % Final Platelet Count Date Value Ref Range Status 12/10/2018 194 150 - 400 k/uL Final MPV Date Value Ref Range Status 12/10/2018 11.2 9.0 - 12.7 fL Final Abs Neut (ANC) Date Value Ref Range Status 12/10/2018 3.51 1.45 - 7.50 k/uL Final Lymph% Date Value Ref Range Status 12/10/2018 31.7 % Final Abs Lymph Date Value Ref Range Status 12/10/2018 1.87 1.00 - 4.00 k/uL Final [place]% Date Value Ref Range Status 12/10/2018 7.5 % Final Abs [place] Date Value Ref Range Status 12/10/2018 0.44 0.00 - 0.86 k/uL Final Abs Eosin Date Value Ref Range Status 12/10/2018 0.05 0.00 - 0.45 k/uL Final Baso% Date Value Ref Range Status 12/10/2018 0.3 % Final Abs Baso Date Value Ref Range Status 12/10/2018 <0.03 0.00 - 0.10 k/uL Final PATH: IMAGING: ASSESSMENT AND PLAN: Delaney Fraser is a 43 year old year old female with one episode of mild leukopenia which is now currently resolved. I explained the differential diagnoses of leukopenia to Delaney at great length. She has no evidence of splenomegaly and/or lymphadenopathy. She has no clinical evidence of an autoimmune disease. On repeat bloodwork her CBC appeared normal. I will check her CBC again in our office today. We'll also check her B12 folate as well as iron stores. She does have some mild fatigue which may be related to iron deficiency secondary to her history of heavy menstrual blood loss in the past. I will follow-up on the results of the blood work with her. Dear MARY Wheeler, thank you for allowing me to participate in Miss Delaney Fraser care, if there are any questions or concerns please do not hesitate to contact me at the number below. Henrik Conde M.D. Hematology/Medical Oncology [facility] [phone] CC: Benito Hodges MD - (Inactive), In Basket (Inactive) - User (Inactive) [address] [facility] [address] () [phone] (Fax Referring Provider: MARY MORFIN [[id number]] Allergies As of Date: 12/10/2018 Noted Allergy Reaction SULFAMETHOXAZOLE 12/06/2018 16 - Unknown TRIMETHOPRIM 12/06/2018 16 - Unknown Date Reviewed: 12/10/2018 Reviewed by: Shaina Stahl - Fully Assessed Reason for Visit: Leukopenia [835] Cmt: new patient consult Primary Visit Diagnosis:Leukopenia, unspecified type [D72.819] Order(s):CBC + DIFF (FOR REMOTE C USE) [SQRCBCDF] Order #: [id number] FUTURE COMP METABOLIC PANEL [SQCMP] Order #: [id number] FUTURE IRON + TIBC [SQIRON] Order #: [id number] FUTURE FERRITIN BLD [SQFERR] Order #: [id number] FUTURE VITAMIN B12 BLOOD [SQB12] Order #: [id number] FUTURE FOLATE SERUM [SQSERFOL] Order #: [id number] FUTURE IMMUNOGLOBULINS YECENIA [SQSERIMM] Order #: [id number] FUTURE Disposition: Return if symptoms worsen or fail to improve. Follow-up and Disposition History Recorded Prescriptions as of 12/10/2018 Sig: MULTIVITAMIN CAPSULE Take 1 capsule by mouth once * CYANOCOBALAMIN (VIT B-12) 1,0* Take 1,000 mcg by mouth once * Problem List As Of Date: 12/10/2018 (None) Encounter Status:Closed by HENRIK CONDE MD on 12/10/18 Normal [facility] Comp Metabolic Panelon 12-10 Albumin [Mass/Vol] 4.5 g/dL Normal 3.9-4.9 [facility] ALP [Catalytic activity/Vol] 52 U/L Normal 34-123 [facility] ALT [Catalytic activity/Vol] 11 U/L Normal 7-38 [facility] Anion gap [Moles/Vol] 10 mmol/L Normal 9-18 [facility] AST [Catalytic activity/Vol] 19 U/L Normal 13-35 [facility] Bilirubin [Mass/Vol] 0.3 mg/dL Normal 0.2-1.3 [facility] Calcium [Mass/Vol] 9.1 mg/dL Normal 8.5-10.2 [facility] Chloride [Moles/Vol] 103 mmol/L Normal 97-105 [facility] CO2 [Moles/Vol] 26 mmol/L Normal 22-30 [facility] Creatinine [Mass/Vol] 0.80 mg/dL Normal 0.58-0.96 [facility] eGFR- Amer. >60 Normal [facility] GFR/1.73 sq M predicted among non-blacks MDRD (S/P/Bld) [Vol rate/Area] mL/min/{1.73_m2} Normal [facility] Comment on above: Result Comment: eGFR (Estimated GFR) Units of measure: mL/min/1.73 meters squared eGFR is derived from the reexpressed MDRD Study equation using the following parameters: serum creatinine, age, gender and race. The creatinine assay has been calibrated to be traceable to IDMS. An eGFR <60 mL/min/1.73m2 for >3 months is consistent with chronic kidney disease. Refer to KDOQI guidelines for clinical interpretation. In patients with unstable renal function, e.g. those with acute kidney injury, the eGFR may not accurately reflect actual GFR. Glucose [Mass/Vol] 134 mg/dL High 74-99 [facility] Comment on above: Result Comment: The [place] [employer] Association (ADA) provides guidance for cutoff values for fasting glucose and random glucose. The ADA defines fasting as no caloric intake for at least 8 hours. Fasting plasma glucose results between 100 to 125 mg/dL indicate increased risk for diabetes (prediabetes). Fasting plasma glucose results greater than or equal to 126 mg/dL meet the criteria for diagnosis of diabetes. In the absence of unequivocal hyperglycemia, results should be confirmed by repeat testing. In a patient with classic symptoms of hyperglycemia or hyperglycemic crisis, random plasma glucose results greater than or equal to 200 mg/dL meet the criteria for diagnosis of diabetes. Reference: Standards of Medical Care in Diabetes 2016, [place] [employer] Association. Diabetes Care. 2016.39(Suppl 1). Potassium [Moles/Vol] 3.8 mmol/L Normal 3.7-5.1 [facility] Protein [Mass/Vol] 7.0 g/dL Normal 6.3-8.0 [facility] Sodium [Moles/Vol] 139 mmol/L Normal 136-144 [facility] Urea nitrogen [Mass/Vol] 13 mg/dL Normal 7-21 [facility] Ferritinon 12-10-2018 Ferritin [Mass/Vol] 35.1 ng/mL Normal 14.7-205.1 [facility] Comment on above: Performed By: #### I KAISER, FERR, B12, SERFOL, SERIMM #### [facility] [address] [place], [place] [id number] Folate, Serumon 12-10-2018 Folate [Mass/Vol] 13.4 ng/mL Normal >4.7 [facility] Comment on above: Performed By: #### I KAISER, FERR, B12, SERFOL, SERIMM #### [facility] [address] [place], [place] [id number] Immunoglobulins GAMon 2018 IgA [Mass/Vol] 190 mg/dL Normal 78-391 [facility] Comment on above: Performed By: #### I KAISER, FERR, B12, SERFOL, SERIMM #### [facility] [address] [phone] IgG [Mass/Vol] 1290 mg/dL Normal 717-1411 [facility] Comment on above: Performed By: #### I KAISER, FERR, B12, SERFOL, SERIMM #### [address] [place] [id number] [place] [phone] IgM [Mass/Vol] 145 mg/dL Normal 53-334 [facility] Comment on above: Performed By: #### I KAISER, FERR, B12, SERFOL, SERIMM #### [place] [phone] Iron and TIBCon 12-10-2018 Iron [Mass/Vol] 125 ug/dL Normal 41-186 [facility] Comment on above: Performed By: #### I KAISER, FERR, B12, SERFOL, SERIMM #### [address] [place] [address] [place] [phone] TIBC 344 ug/dL Normal 232-386 [facility] Comment on above: Performed By: #### I KAISER, FERR, B12, SERFOL, SERIMM #### [place] [phone] Transferrin Saturatn 36 % Normal 15-57 [facility] Comment on above: Performed By: #### I KAISER, FERR, B12, SERFOL, SERIMM #### [place] [phone] PROGRESSon 12-10-2018 PROGRESS HNO ID: [id number] Author: Henrik Conde Service: ? Author Type: Physician Type: Progress Notes Filed: 12/10/2018 6:06 PM Note Text: PATIENT NAME: Delaney Fraser [facility] NO.: [id number] ATTENDING PHYSICIAN: Henrik Conde MD DATE OF SERVICE: December 10, 2018 This document has been created with the use of voice recognition technology. It may contain inaccuracies, misspellings, inaccurate syntax or inappropriate word context that escaped review. Dear MARY Wheeler [address] [facility] [address] thank you for referring Miss Delaney Fraser for an opinion regarding leukopenia. CHIEF COMPLAINT: I have low blood counts HPI: Delaney Fraser is a 43 year old year old female with no significant past medical history whom during a recent follow-up in September 2018 was noted to have a white count of 3.8. She does not recall having any prior episode of leukopenia. As any changes in medications. She denies any history of autoimmune diseases. She denies any use of supplements. As a history of heavy alcohol abuse. She denies any liver disease. She also denies any HIV risk factors. Her CBC was repeated in November 13, 2018 and at that point her CBC was normal. Current Outpatient Medications: Multivitamin capsule Take 1 capsule by mouth once daily. cyanocobalamin (VITAMIN B-12) 1,000 mcg tab Take 1,000 mcg by mouth once daily. No current facility-administered medications for this visit. ALLERGIES Allergen Reactions - Sulfamethoxazole Unknown - Trimethoprim Unknown PAST MEDICAL HISTORY Diagnosis Date - Leukopenia PAST SURGICAL HISTORY Procedure Laterality Date - COLPOSCOPY W BX CERVIX FAMILY HISTORY Problem Relation Age of Onset - Cancer Father - Cancer Maternal Grandmother Social History Socioeconomic History Marital status: Spouse name: Not on file Number of children: Not on file Years of education: Not on file Highest education level: Not on file Occupational History Not on file Social Needs Financial resource strain: Not on file Food insecurity: Worry: Not on file Inability: Not on file Transportation needs: Medical: Not on file Non-medical: Not on file Tobacco Use Smoking status: Never Smoker Smokeless tobacco: Never Used Substance and Sexual Activity Alcohol use: Yes Comment: occ. Drug use: Never Sexual activity: Not on file Lifestyle Physical activity: Days per week: Not on file Minutes per session: Not on file Stress: Not on file Relationships Social connections: Talks on phone: Not on file Gets together: Not on file Attends oriental orthodox service: Not on file Active member of club or organization: Not on file Attends meetings of clubs or organizations: Not on file Relationship status: Not on file Intimate partner violence: Fear of current or ex partner: Not on file Emotionally abused: Not on file Physically abused: Not on file Forced sexual activity: Not on file Other Topics Concerns: Not on file Social History Narrative Not on file REVIEW OF SYSTEMS GENERAL: No weight loss, malaise or fevers. No night sweats. HEENT: Negative for headaches, No changes in hearing or vision, no nose bleeds or other nasal problems. RESPIRATORY: Negative for cough, wheezing and shortness of breath CARDIOVASCULAR: Negative for chest pain, leg swelling and palpitations GI: Negative for abdominal discomfort, blood in stools or black stools and change in bowel habits : Negative for dysuria, frequency and incontinence MUSCULOSKELETAL: Negative for joint pain or swelling, back pain, and muscle pain. SKIN: Negative for lesions, rash, and itching. HEMATOLOGY/LYMPHOLOGY Negative for prolonged bleeding, bruising easily, and swollen nodes. NEURO: Negative for numbness or tingling of hands/feet. No weakness. PHYSICAL EXAMINATION: BP 150/79 Pulse 90 Temp 36.7 ?C (98 ?F) (Oral) Resp 18 Ht 168.2 cm (5' 6.24 ) Wt 71.5 kg (157 lb 9.6 oz) LMP 11/19/2018 SpO2 99% BMI 25.25 kg/m? Wt 71.5 kg (157 lb 9.6 oz) BMI 25.25 kg/m2 Last 3 Encounter Wt Readings: Date: Wt: 12/10/2018 71.5 kg (157 lb 9.6 oz) General appearance:ECOG PERFORMANCE STATUS: 0- Fully active, able to carry on all pre-disease performance w/o restriction. Patient in NAD. Skin: Skin color, texture, turgor normal. No rashes or lesions. Eyes: Anicteric sclera. Pupils are equally round and reactive to light. Extraocular movements are intact. Lymph Nodes: No cervical, supraclavicular, axillary or inguinal adenopathy. Oropharynx: Lips, mucosa, and tongue normal. Back: No pain to percussion. Negative SLR test Lungs clear to auscultation, No wheezing or rhonchi Heart: RRR without murmur, gallop, or rubs. Abdomen soft, non-tender. No masses, organomegaly Extremities: No deformities. No edema Neuro: Gait and speech normal. Reflexes normal and symmetric. Muscular strength intact. Sensation grossly intact. Rectal: Deferred : Deferred LABS: Glucose (mg/dL) Date Value 12/10/2018 134 Potassium (mmol/L) Date Value 12/10/2018 3.8 Sodium (mmol/L) Date Value 12/10/2018 139 Chloride (mmol/L) Date Value 12/10/2018 103 CO2 (mmol/L) Date Value 12/10/2018 26 Creatinine (mg/dL) Date Value 12/10/2018 0.80 BUN (mg/dL) Date Value 12/10/2018 13 Anion Gap (mmol/L) Date Value 12/10/2018 10 Calcium (mg/dL) Date Value 12/10/2018 9.1 Protein, Total (g/dL) Date Value 12/10/2018 7.0 Albumin (g/dL) Date Value 12/10/2018 4.5 Bilirubin, Total (mg/dL) Date Value 12/10/2018 0.3 Alkaline Phosphatase (U/L) Date Value 12/10/2018 52 AST (U/L) Date Value 12/10/2018 19 ALT (U/L) Date Value 12/10/2018 11 WBC Date Value Ref Range Status 12/10/2018 5.89 3.70 - 11.00 k/uL Final RBC Date Value Ref Range Status 12/10/2018 4.19 3.90 - 5.20 m/uL Final Hemoglobin Date Value Ref Range Status 12/10/2018 13.5 11.5 - 15.5 g/dL Final Hematocrit Date Value Ref Range Status 12/10/2018 39.5 36.0 - 46.0 % Final MCV Date Value Ref Range Status 12/10/2018 94.3 80.0 - 100.0 fL Final MCH Date Value Ref Range Status 12/10/2018 32.2 26.0 - 34.0 pG Final MCHC Date Value Ref Range Status 12/10/2018 34.2 30.5 - 36.0 g/dL Final RDW-CV Date Value Ref Range Status 12/10/2018 12.3 11.5 - 15.0 % Final Platelet Count Date Value Ref Range Status 12/10/2018 194 150 - 400 k/uL Final MPV Date Value Ref Range Status 12/10/2018 11.2 9.0 - 12.7 fL Final Abs Neut (ANC) Date Value Ref Range Status 12/10/2018 3.51 1.45 - 7.50 k/uL Final Lymph% Date Value Ref Range Status 12/10/2018 31.7 % Final Abs Lymph Date Value Ref Range Status 12/10/2018 1.87 1.00 - 4.00 k/uL Final T[place]% Date Value Ref Range Status 12/10/2018 7.5 % Final Abs [place] Date Value Ref Range Status 12/10/2018 0.44 0.00 - 0.86 k/uL Final Abs Eosin Date Value Ref Range Status 12/10/2018 0.05 0.00 - 0.45 k/uL Final Baso% Date Value Ref Range Status 12/10/2018 0.3 % Final Abs Baso Date Value Ref Range Status 12/10/2018 <0.03 0.00 - 0.10 k/uL Final PATH: IMAGING: ASSESSMENT AND PLAN: Delaney Fraser is a 43 year old year old female with one episode of mild leukopenia which is now currently resolved. I explained the differential diagnoses of leukopenia to Delaney at great length. She has no evidence of splenomegaly and/or lymphadenopathy. She has no clinical evidence of an autoimmune disease. On repeat bloodwork her CBC appeared normal. I will check her CBC again in our office today. We'll also check her B12 folate as well as iron stores. She does have some mild fatigue which may be related to iron deficiency secondary to her history of heavy menstrual blood loss in the past. I will follow-up on the results of the blood work with her. Dear Dr. MORFIN, MARY GRAY, thank you for allowing me to participate in Miss Delaney Fraser care, if there are any questions or concerns please do not hesitate to contact me at the number below. Henrik Conde M.D. Hematology/Medical Oncology [facility] [phone] CC: Benito Hodges MD - (Inactive), In Basket (Inactive) - User (Inactive) [address] ROSARIOFORMERLY [facility] [address] (Ph) [phone] (Fax Normal [facility] Remote CBCDIF (for [facility] use o nly)on 12-10-2018 Abs Baso <0.03 Normal 0.00-0.10 [facility] Abs [place] 0.44 k/uL Normal 0.00-0.86 [facility] Abs Neut 3.51 k/uL Normal 1.45-7.50 [facility] Basophils/100 WBC (Bld) 0.3 % Normal [facility] Eosinophils (Bld) [#/Vol] 0.05 10*3/uL Normal 0.00-0.45 [facility] Eosinophils/100 WBC (Bld) 0.8 % Normal [facility] Erythrocyte distribution width (RBC) [Ratio] 12.3 % Normal 11.5-15.0 [facility] Hematocrit (Bld) [Volume fraction] 39.5 % Normal 36.0-46.0 [facility] Hemoglobin (Bld) [Mass/Vol] 13.5 g/dL Normal 11.5-15.5 [facility] Lymphocytes (Bld) [#/Vol] 1.87 10*3/uL Normal 1.00-4.00 [facility] Lymphocytes/100 WBC (Bld) 31.7 % Normal [facility] MCH (RBC) [Entitic mass] 32.2 pG Normal 26.0-34.0 [facility] MCHC (RBC) [Mass/Vol] 34.2 g/dL Normal 30.5-36.0 [facility] MCV (RBC) [Entitic vol] 94.3 fL Normal 80.0-100.0 [facility] Monocytes/100 WBC (Bld) 7.5 % Normal [facility] Neutrophils/100 WBC (Bld) 59.7 % Normal [facility] Platelet mean volume (Bld) [Entitic vol] 11.2 fL Normal 9.0-12.7 [facility] Platelets (Bld) [#/Vol] 194 10*3/uL Normal 150-400 [facility] RBC (Bld) [#/Vol] 4.19 10*6/uL Normal 3.90-5.20 [facility] WBC (Bld) [#/Vol] 5.89 10*3/uL Normal 3.70-11.00 [facility] Vitamin B12on 12-10-2018 Cobalamin (Vitamin B12) [Mass/Vol] 579 pg/mL Normal 232-1245 [facility] Comment on above: Performed By: #### I KAISER, FERR, B12, SERFOL, SERIMM #### [facility] [address] [place], [place] [address] Vital Signs Date Time Vital Sign Value Performing Clinician Carmine tate 12-05-2023 11:40-0400 Body height 167.6 cm Elizabeth Rinkes DO Work Phone: [facility] 12-05-2023 11:40-0400 Body mass index (BMI) [Ratio] 25.82 kg/m2 Elizabeth Rinkes DO Work Phone: [facility] 12-05-2023 11:40-0400 Body weight 72.58 kg Elizabeth Rinkes DO Work Phone: [facility] 12-05-2023 11:40-0400 Diastolic blood pressure 80 mm[Hg] Elizabeth Rinkes DO Work Phone: [facility] 12-05-2023 11:40-0400 Systolic blood pressure 130 mm[Hg] Elizabeth Rinkes DO Work Phone: [facility] Healthcare Encounters Encounter Date Encounter Type Care Provider Facility Start: 12-05-2023 End: 12-05-2023 Bamboo flowsheet Elizabeth E Rinkes DO Work Phone: [facility] Start: 12-05-2023 End: 12-05-2023 Bamboo flowsheet Elizabeth E Rinkes DO Work Phone: [facility] Start: 12-05-2023 End: 12-05-2023 Patient encounter status Elizabeth E Rinkes DO Work Phone: [facility] Work Phone: Start: 12-05-2023 End: 12-05-2023 Periodic preventive med est patient 40-64yrs Elizabeth Clau Rinkes DO Work Phone: [facility] Comment on above: Encounter for gyneco logical examination without abnormal finding (Primary Dx); Screening for malignant neoplasm of cervix; Encounter for screening mammogram for breast cancer; Oral contraceptive pill surveillance Start: 12-05-2023 End: 12-05-2023 ambulatory ELIZABETH GOMEZ Not Available Start: 10-19-2022 ambulatory Ms. Odalys Quintero Faci lity:[id number] Start: 05-05-2022 Rx Renewal Odalys Huerta [employer]N-[employer] CARRIER Work Phone: [facility] Work Phone: Start: 02-25-2022 End: 02-26-2022 ambulatory ELIZABETH GOMEZ Facility:[facility]1 Start: 12-03-2021 Encounter for genera l adult medical examination without abnormal findings DR MASSIMO READ [facility] Start: 11-26-2021 End: 11-27-[address] MASSIMO READ Facility:[facility]1 Start: 11-26-2021 End: 11-27-2021 Encounter for general adult medical examination without abnormal findings DR MASSIMO READ Facility:[facility] Start: 10-11-2021 End: 10-11-2021 ambulatory GONZALEZ VALLADARES Facility:[facility]1 Start: 2021 End: 2021 ambulatory FRANCIA FRANCO Facility:[facility]1 Start: 04-05-2021 Rx Renewal Odalys Huerta [employer]ER Work Phone: [id number]Ggdumysnx-Eghwgzxg B [id number] Work Phone: Start: 03-24-2021 Office outpatient vi sit 25 minutes Odalys Leon CORPORATE SECRETARY-[employer]ISH CARRIER Work Phone: [id number]-[id number]-Qygcwcrl B [id number] Work Phone: Start: 03-23-2021 End: 03-23-2021 ambulatory ANGELICA LOWERY Facility:[facility]1 Start: 03-04-2021 AUDIT Odalys Leon Huerta PR[employer]-DISH CARRIER Work Phone: [id number]-Hbaqlbbaw-Kwixwhyx B [id number] Work Phone: Start: 08-21-2017 End: 08-22-2017 Ambulatory DEFAULT PHYSICIAN Facility:[facility] Procedures Date Procedure Procedure Detail Performing Clinician Start: 2022 Microscopic observat ion [Identifier] in Cervix by Cyto stain Elizabeth Gomez DO Work Phone: Start: 08-26-2021 Mammography Elizabeth carlos DO Work Phone: Plan of Treatment Date Care Activity Detail Author Start: 10-06-2027 Screening for malign ant neoplasm of cervix [facility] Start: 2025 Screening for malign ant neoplasm of cervix Pap Smear [facility] Start: 12-05-2023 End: 12-05-2023 Patient encounter procedure 12/05/2023 11:30 AM EDT Office Visit [facility] [address] [place] [address] Elizabeth Gomez DO [address] [place] [address] Encounter for gynecological examination without abnormal finding; Screening for malignant neoplasm of cervix; Encounter for screening mammogram for breast cancer; Encounter for surveillance of contraceptive pills [facility] Comment on above: Encounter for gyneco logical examination without abnormal finding; Screening for malignant neoplasm of cervix; Encounter for screening mammogram for breast cancer; Encounter for surveillance of contraceptive pills Start: 11-19-2023 Influenza vaccination Influenza Vacc ine (#1) [facility] Start: 08-26-2022 Screening for malign ant neoplasm of breast Mammogram [facility] Start: 03-23-2021 VANCE, Provider : Odalys Quintero, Status: Pen, Time: 2:00 PM VANCE, Provider: Odalys Quintero, Status: Pen, Time: 2:[id number]Rbjtnm[facility] [address] Work Phone: Start: 1975 Screening for malign ant neoplasm of colon [facility] DBT Breast - bilater al screening Bilateral screening mammogram with tomosynthesis Imaging Routine Encounter for screening mammogram for breast cancer Ordered: 12/05/2023 [facility] Comment on above: Ordered: 12/05/2023 SENDOUT TEST MISCELLANEOUS [facility] SENDOUT TEST MISCELLANEOUS [facility] Lab Routine Screening for malignant neoplasm of cervix Ordered: 12/05/2023 [facility] Work Phone: Comment on above: Ordered: 12/05/2023 Immunizations Immunization Date Immunization Notes Care Provider Dayo briggs 01-03-2020 influenza virus vacc ine, unspecified formulation Elizabeth Gomez DO Work Phone: [facility] Payers Date Payer Category Payer Unknown 2022 Unknown [id number] 2019 Unknown [id number] 1975 Unknown [id number] 2.16.84 [id number] 1975 Unknown [id number] 2.16.84 [id number] 1975 Unknown [id number] 2.16.84 [id number] 1975 Unknown [id number] 2.16.84 [id number] 1975 Unknown [id number] 2.16.84 [id number] 1975 Unknown [id number] 2.16. [id number] 1975 Unknown [id number] 2.16.84 [id number] Social History Date Type Detail Facility Start: 2022 Tobacco smoking status [facility] Never sm oked tobacco [facility] Start: 11-30-2023 End: 12-05-2023 Alcoholic beverage intake Current drinker of alcohol (finding) [facility] Start: 01-18-2023 End: 01-19-2023 [facility] Start: 01-18-2023 End: 01-19-2023 Alcohol Use Disorder Identification Test - Consumption [AUDIT-C] [facility] How often to you hav e a drink containing alcohol? 2-4 times a month [facility] How many standard dr inks containing alcohol do you have on a typical day? 1 or 2 [facility] How often do you hav e 6 or more drinks on 1 occasion? Never [facility] Start: 2022 Alcohol Comment 1-2 drinks 2-4 x a month in the past year,Caffeine intake: 1-2 cups per day coffee [facility] Start: 1975 Sex assigned at Not on file [facility] History of Present illness Narrative 12-05-2023 Elizabeth Gomez DO - 12/05/2023 11:30 AM EDT Note Date & Type Note Facility 12-05-2023 History of Presen t illness Narrative Images from the original note were not included. Elizabeth Gomez D.O. Obstetrics and Gynecology Patient: Delaney Fraser : 1975 (48 y.o.) Yearly Wellness Exam Date: 12/05/2023 Reason for Visit - Chief Complaint Patient presents with Gynecologic Exam Pt stopped OCP July or August 2023. Pt would like to discuss getting back on OCP. LMP 11/23/23. Menses have been irregular. Denies bowel/bladder concerns. Visit Vitals BP 130/80 Ht 5' 6 Wt 160 lb LMP 11/23/2023 BMI 25.82 kg/m Smoking Status Never BSA 1.84 m Allergies Allergen Reactions Sulfamethoxazole Other Reaction(s): Unknown Trimethoprim Other Reaction(s): Unknown History of Present Illness, Associated Treatments and Results - OB History Para Term AB Living 2 2 2 0 0 0 SAB IAB Ectopic Multiple Live Births 0 0 0 0 0 # Outcome Date GA Lbr Devan/2nd Weight Sex Type Anes PTL Lv 2 Term 1 Term Obstetric Comments Pap smear 10/05/22 [facility], Mammogram 02/25/22 wn @ [place] Review of Systems - General: Chills denies. Allergy/Immunology: Rash Denies. ENT: Denies Difficulty swallowing. Endocrine: Denies Cold intolerance denies. Heat intolerance denied. Respiratory: Denies Chest pain denies. Shortness of breath denies. Breast: Denies Bloody nipple discharge denies. Breast lump denies. Cardiovascular: Denies Chest pain. Gastrointestinal: Abdominal pain denies. Blood in stool denies. Hematology: Easy bruising denies. Prolonged bleeding denies. Women Only: Breast lump denies. Vaginal bleeding between periods is denied. Vaginal discharge/itching denied. Genitourinary: Blood in urine denies. Painful urination denies. Incontinence denies. Skin: Hair changes. Neurologic: Seizures denied. Stroke denies. Psychiatric: Anxiety denies. Depressed mood denies. Medication Documentation Review Audit Reviewed by Teresa Brown MA (Software Architect) on 01/19/23 at 1617 Medication Order Taking? Sig Documenting Provider Last Dose Status ALPRAZolam (Xanax) 0.25 MG tablet [id number] 1 (one) time each day at the same time. Historical Provider, Active clobetasol (Temovate) 0.05 % ointment [id number] Apply thin light layer to affected tissues externally twice daily x 14 days, daily x 7 days, then every other day x 7 days Elizabeth Gomez DO Active cyanocobalamin (Vitamin B-12) 1000 MCG tablet [id number] Take 1,000 mcg by mouth in the morning. Historical Provider, Active DULoxetine (Cymbalta) [address] capsule [id number] Take 60 mg by mouth in the morning. Historical Provider, Active MULTIPLE VITAMIN IV [id number] 1 (one) time each day at the same time. Historical Provider, Active norgestimate-ethinyl estradiol (Munira) 0.25-35 MG-MCG tablet [id number] Take 1 tablet by mouth in the morning. Elizabeth Gomez DO Active Past Medical History: Diagnosis Date Anxiety Hx of abnormal cervical Pap smear POTS (postural orthostatic tachycardia syndrome) Past Surgical History: Procedure Laterality Date COLPOSCOPY 2010 VAGINAL DELIVERY x2 Family History Problem Relation Name Age of Onset Other (Bladder Cancer) Father Breast cancer Maternal Grandmother Melanoma Neg Hx Physical Exam - General appearance, mentation, extraocular movements, facial strength and movement, hearing, upper and lower extremity strength and tone, sensation to gross testing, coordination, and gait are normal or at baseline unless noted below. General Examination: GENERAL APPEARANCE: alert oriented well developed, well nourished. HEAD: normocephalic atraumatic. EYES: sclera anicteric. EARS: no obvious hearing deficit. SKIN: warm and dry. HEART: regular rate and rhythm. LUNGS: clear to auscultation bilaterally. CHEST: axillary nodes grossly normal. BREASTS: no masses palpable bilaterally, normal nipples bilaterally. ABDOMEN: soft, nontender, nondistended, no masses palpable. BACK: no costovertebral angle tenderness, no obvious scoliosis/kyphosis. FEMALE GENITOURINARY: inflammation across bilateral labia, normal vaginal mucosa, cervix absent of lesions, nontender, uterus AV, mobile, ovaries nonpalpable and nontender. EXTREMITIES: no edema. NEUROLOGIC: alert and oriented. PSYCH: cooperative with exam. Diagnoses and all orders for this visit: Encounter for gynecological examination without abnormal finding Screening for malignant neoplasm of cervix - SENDOUT TEST MISCELLANEOUS [facility] Encounter for screening mammogram for breast cancer - Bilateral screening mammogram with tomosynthesis Oral contraceptive pill surveillance - norgestimate-ethinyl estradiol (Munira) 0.25-35 MG-MCG tablet; Take 1 tablet by mouth Daily Pap, pelvic and breast exam completed. Findings of today's exam discussed with the patient. Continue MSBE. Ca/Vit D recommendations reviewed with the patient. The patient is to contact the office with any changes to her gynecological condition. The patient is to return in 1 year or as needed ICD-10-CM 1. Encounter for gynecological examination without abnormal finding Z01.419 2. Screening for malignant neoplasm of cervix Z12.4 SENDOUT TEST MISCELLANEOUS [facility] 3. Encounter for screening mammogram for breast cancer Z12.31 Bilateral screening mammogram with tomosynthesis documented in this encounter [facility] Chief complaint Narrative - Reported Note Date & Type Note Facility Chief complaint Narrative - Reported POTS patient being assessed today for follow-up of POTS.Neurologic Evaluation.An interactive audio and video telecommunication system which permits real time communications between the patient (at the originating site) and provider (at the distant site) was utilized to provide this telehealth service. [id number]qrmdr[facility]Civxgdny [facility] [address] Work Phone: Evaluation note Note Date & Type Note Facility Evaluation note Diagnosis Encounter for gynecological examination without abnormal finding- Primary Screening for malignant neoplasm of cervix Screening for malignant neoplasm of the cervix Encounter for screening mammogram for breast cancer Oral contraceptive pill surveillance documented in this encounter [facility] History of Present illness Narrative Note Date & Type Note Facility History of Present illness Narrative Patient reports that since we have added the fludrocortisone that her symptoms have been well controlled and manageable. She is also on some Cymbalta from her PCP now which is helping her with her anxiety as well. She denies syncopal episodes and denies palpitations. Would like to continue the fludrocortisone as she has been taking it. Discussed role of medicine, importance of taking medications, potential risks, benefits, and precautions to be taken. Reviewed sleep hygiene and dietary modifications. Follow-up in 1 year.This note was created with voice recognition software and was not corrected for typographical or grammatical errors [id number]Pdczjwixc-Zecpkdje B [address] Work Phone: Summary Purpose Family History No Family History Records FoundNo Family History Records FoundNo Family History Records FoundNo Family History Records FoundNo Family History Records FoundNo Family History Records FoundNo Family History Records Found Advance Directives No Advanced Directives Records FoundNo Advanced Directives Records FoundNo Advanced Directives Records FoundNo Advanced Directives Records FoundNo Advanced Directives Records FoundNo Advanced Directives Records FoundNo Advanced Directives Records Found Additional Source Comments INFORMATION SOURCE (unrecogn ized section and content) DATE CREATED AUTHOR 09/05/2017 [facility] DATE CREATED AUTHOR AUTHOR'S ORGANIZ ATION 12/22/2018 [facility] DATE CREATED AUTHOR AUTHOR'S ORGANIZ ATION 01/05/2021 [facility] DATE CREATED AUTHOR AUTHOR'S ORGANIZ ATION 03/01/2022 [facility] DATE CREATED AUTHOR AUTHOR'S ORGANIZ ATION 10/20/2022 [facility] DATE CREATED AUTHOR AUTHOR'S ORGANIZ ATION 10/20/2022 [facility] DATE CREATED AUTHOR AUTHOR'S ORGANIZ ATION 12/07/2023 [facility] Care Teams (unrecognized sec tion and content) Soil Conservation Aide Relationship Specialty Start Date End Date Massimo Read MD [address] [place] [address] PCP - General Family Medicine 10/05/22 [employer]il Conservation Aide Relationship Specialty Start Date End Date Massimo Read MD [address] [place] [id number] PCP - General Family Medicine 10/05/22 Reason for Visit (unrecogniz ed section and content) Reason Comments Gynecologic Exam Pt stopped OCP JulyAugust 2023. Pt would like to discuss getting back on OCP. LMP 11/23/23. Menses have been irregular. Denies bowel/bladder concerns. FOR RECORDS PERTAINING TO PATIENTS WHO ARE OR HAVE BEEN ENROLLED IN A CHEMICAL DEPENDENCY/SUBSTANCEABUSE PROGRAM, SOME INFORMATION MAY BE OMITTED. This clinical summary was aggregated from multiple sources. Caution should be exercised in using it in the provision of clinical care. This summary normalizes information from multiple sources, and as a consequence, information in this document may materially change the coding, format and clinical context of patient data. In addition, data may be omitted in some cases. CLINICAL DECISIONS SHOULD BE BASED ON THE PRIMARY CLINICAL RECORDS. [employer] provides no warranty or guarantee of the accuracy or completeness of information in this document.
== END 2024-04-23 13:12 | disposition home or self-care (01) ==
LOC: RAD 13:11
PROVIDERS: PCP Family Medicine; Visit Provider Family Medicine
DX: I95.1 Orthostatic hypotension (principal); M25.551 Pain in right hip; M25.552 Pain in left hip
CPT/HCPCS: 73523

== ENCOUNTER 2024-08-21 07:53 | Outpatient (OUT) | payer BC, SELFPAY ==
--- NOTE | 2024-08-21 07:56 | US_ITS ---
The [address] [address] Patient Name: LETI FRASER MRN: [id number] date: 1975 Sex: F Assigned Patient Location: US Current Patient Location: US Accession/Order Number: [id number] Exam Date: 08/21/2024 08:42 Report Date: 08/21/2024 08:44 At the request of: MASSIMO CORADO MD Procedure: US aorta ULTRASOUND AORTA CLINICAL DATA: Family history of aortic aneurysm COMPARISON: None Real-time ultrasound evaluation of the abdominal aorta was performed. No aneurysm is identified. Proximally, the aorta measures 2.1 x 2.1 cm. At the midsegment, the aorta measures 1.5 x 1.7 cm. Distally, the aorta measures 1.4 x 1.7 cm. The bifurcation is visualized and the iliac arteries are normal caliber. No periaortic fluid is seen. US/US aorta IMPRESSION: NO AORTIC ANEURYSM. Impression dictated by: Lety Denton M.D. 08/21/2024 8:44 AM Dictation Location: [place] [address] Electronically authenticated by: [id number] Date: 08/21/2024 08:44
--- OUTSIDE RECORDS SUMMARY | 2024-08-21 08:11 | XMS_ITS | CCD ---
Author Organization [facility] Care Team Providers Care Making Machine Operator Name Role Phone PHYSICIAN, DEFAULT Unavailable Unavailable PHYSICIAN, DEFAULT Unavailable Unavailable Unavailable Unavailable ELIZABETH GOMEZ Admitting Unavailable ELIZABETH GOMEZ Attending Unavailable KIEPERT, GONZALEZ Primary Care Unavailable DR ALO MARKS V Consulting Unavailable ELIZABETH GOMEZ Consulting Unavailable SALVADORFRANCIA TROY Admitting Unavailable SALVADORFRANCIA ALVARADO Attending Unavailable KIEPERT, MEADOW Primary Care Unavailable FRANCIA FRANCO Consulting Unavailable [...] Unavailable Massimo Read MD Primary Care Provider [phone] Allergies Allergy Classification Reported Allergen(s) Allergy Type Date of Onset Reaction(s) Facility (7 sources) Trimethoprim; Translations: [Trimethoprim TABS] Drug Allergy 9 [facility] Work Phone: (4 sources) Sulfamethoxazole-TMP DS TABS; Translations: [Sulfamethoxazole-TM P DS TABS] Allergy to drug (finding) [facility] [address] Work Phone: (3 sources) Sulfamethoxazole Allergy to substance 9 [facility] Medications Current Medications Medication Drug Class(es) [...] Oct 19 2022 3:35PM EST (Author) Normal Touchmig33 MG MAMM SCREEN 3D MAZIN CADon 02-25-2022 MG MAMM SCREEN 3D MAZIN CAD Patient: DELANEY FRASER Exam Date: 02/25/2022 : 1975 Gender:F Ordering : DR. ELIZABETH GOMEZ D.O. Admission #: [id number] Family : Order #: [id number] CLICK HERE TO VIEW EXAM RADIOLOGY REPORT [...] breast cancer at age 70. LOCATION: [facility] BREAST COMPOSITION: Extremely dense, which lowers the [...] MD on 02/25/2022 at 09:49 Normal [facility] VIT D 25-OH LABCORPon 2021 Vitamin D, 25-Hydroxy 48.6 ng/mL Normal 30.0-100.0 [facility] Comment on above: Result Comment: Fior min D deficiency has been defined by the [place] of Medicine and an Endocrine Society practice guideline as a level of serum 25-OH vitamin D less than 20 ng/mL (1,2). The Endocrine Society went on to further define vitamin D insufficiency as a level between 21 and 29 ng/mL (2). 1. IOM ([place] of Medicine). 2010. Dietary reference intakes for calcium and D. [place]: The National Academies Press. 2. Mac DIAZ, Latrice JUÁRZE, Rosa DAVILA, et al. Evaluation, treatment, and prevention of vitamin D deficiency: an Endocrine Society clinical practice guideline. JCEM. 2010; 96(7):1911-30. Performed By: #### V ITADLC #### [facility] [address] [address] [address] Kiesha Monk T4 LABCORPon 11-27-2021 T4 [Mass/Vol] 6.9 ug/dL Normal 4.5-12.0 [facility] Comment on above: Performed By: #### T 4LC #### [facility] [address] [place] [address] Dr. Kiesha Monk CBC AUTO DIFFon 11-26-2021 BASO # 0.0 103/ul Normal 0.0-0.1 [facility] Comment on above: Performed By: #### C BC #### [facility] [address] [place] [address] Dr. Kiesha Monk Basophils/100 WBC (Bld) 0.5 % Normal 0.2-2.0 [facility] Comment on above: Performed By: #### C BC #### [facility] [address] [place] [address] Dr. Kiesha Monk EO # 0.1 103/ul Normal 0.0-0.7 [facility] Comment on above: Performed By: #### C BC #### [facility] [address] [place] [address] Dr. Kiesha Monk Eosinophils/100 WBC (Bld) 1.2 % Normal 0.9-7.0 [facility] Comment on above: Performed By: #### C BC #### [facility] [address] [place] [address] Dr. Kiesha Monk Erythrocyte distribution width (RBC) [Ratio] 12.6 % Normal 11.0-15.0 [facility] Comment on above: Performed By: #### C BC #### [facility] [address] [place] [address] Dr. Kiesha Monk Hematocrit (Bld) [Volume fraction] 40.8 % Normal 36.0-48.0 [facility] Comment on above: Performed By: #### C BC #### [facility] [address] [place] [address] Dr. Kiesha Monk Hemoglobin (Bld) [Mass/Vol] 13.7 g/dL Normal 12.0-16.0 [facility] Comment on above: Performed By: #### C BC #### [facility] [address] [place] [address] Dr. Kiesha Monk IG # 0.01 10e3/ul Normal 0.00-0.03 [facility] Comment on above: Performed By: #### C BC #### [facility] [address] [place] [address] Dr. Kiesha Monk IG % 0.2 % Normal 0.0-0.5 [facility] Comment on above: Performed By: #### C BC #### [facility] [address] [place] [address] Dr. Kiesha Monk LYMPH # 1.8 103/ul Normal 1.2-3.8 [facility] Comment on above: Performed By: #### C BC #### [facility] [address] [place] [address] Dr. Kiesha Monk Lymphocytes/100 WBC (Bld) 31.3 % Normal 20.5-60.0 [facility] Comment on above: Performed By: #### C BC #### [facility] [address] [place] [address] Dr. Kiesha Monk MANUAL DIFF REQ NO Normal [facility] Comment on above: Performed By: #### C BC #### [facility] [address] [place] [address] Dr. Kiesha Monk MCH (RBC) [Entitic mass] 31.6 pg Normal 26.7-34.0 [facility] Comment on above: Performed By: #### C BC #### [facility] [address] [place] [address] Dr. Kiesha Monk MCHC (RBC) [Mass/Vol] 33.6 g/dL Normal 29.9-35.2 [facility] Comment on above: Performed By: #### C BC #### [facility] [address] [place] [address] Dr. Kiesha Monk MCV (RBC) [Entitic vol] 94.2 fL Normal 81.0-99.0 [facility] Comment on above: Performed By: #### C BC #### [facility] [address] [place] [address] Dr. Kiesha Monk MONO # 0.5 103/ul Normal 0.3-0.8 [facility] Comment on above: Performed By: #### C BC #### [facility] [address] [place] [address] Dr. Kiesha Monk Monocytes/100 WBC (Bld) 8.2 % Normal 1.7-12.0 [facility] Comment on above: Performed By: #### C BC #### [facility] [address] [place] [address] Dr. Kiesha Monk NEUT # 3.3 103/ul Normal 1.4-6.5 [facility] Comment on above: Performed By: #### C BC #### [facility] [address] [place] [address] Dr. Kiesha Monk Neutrophils/100 WBC (Bld) 58.6 % Normal 43.0-75.0 [facility] Comment on above: Performed By: #### C BC #### [facility] [address] [place] [address] Dr. Kiesha Monk Platelet mean volume (Bld) [Entitic vol] 10.7 fL Normal 9.5-13.5 [facility] Comment on above: Performed By: #### C BC #### [facility] [address] [place] [address] Dr. Kiesha Monk PLT 210 103/ul Normal 150-450 [facility] Comment on above: Performed By: #### C BC #### [facility] [address] [place] [address] Dr. Kiesha Monk RBC 4.33 106/ul Normal 4.20-5.40 [facility] Comment on above: Performed By: #### C BC #### [facility] [address] [place] [address] Dr. Kiesha Monk WBC 5.7 103/ul Normal 4.0-11.0 [facility] Comment on above: Performed By: #### C BC #### [facility] [address] [place] [address] Dr. Kiesha Monk FREE T3on 11-26-2021 FREE T3 2.65 pg/mlL Normal 2.18-3.98 [facility] Comment on above: Performed By: #### T SH, LIPID, CMP, FT3 #### [facility] [address] [address] [address] Kiesha Monk GLYCOHEMOGLOBIN A1Con 2021 ADA RECOMMENDATION SEE BELOW Normal [facility] Comment on above: Result Comment: ADA RECOMMENDED LIMIT 4.0 - 6.0 ADA THERAPEUTIC TARGET < 7.0 ACTION SUGGESTED > 7.0 Performed By: #### A 1C #### [facility] [address] [address] [address] Kiesha Monk Glucose [Mass/Vol] 103 mg/dL Normal [facility] Comment on above: Performed By: #### A 1C #### [facility] [address] [address] [address] Kiesha Monk HbA1c (Bld) [Mass fraction] 5.2 % Normal 4.5-6.2 [facility] Comment on above: Performed By: #### A 1C #### [facility] [address] [address] [address] Kiesha Monk LIPID PROFILEon 11-26-2021 CHOL-HDL RATIO NORM SEE BELOW Normal [facility] Comment on above: Result Comment: 3.3 - 4.4 LOW RISK 4.4 - 7.1 AVERAGE RISK 7.1 - 11.0 MODERATE RISK >11.0 HIGH RISK Performed By: #### T SH, LIPID, CMP, FT3 #### [facility] [address] [address] [address] Kiesha Monk Cholesterol [Mass/Vol] 225 mg/dL Critically high <=200 [facility] Comment on above: Performed By: #### T SH, LIPID, CMP, FT3 #### [facility] [address] [address] [address] Kiesha Monk Cholesterol in HDL [Mass/Vol] 70 mg/dL Critically high 40-60 [facility] Comment on above: Performed By: #### T SH, LIPID, CMP, FT3 #### [facility] [address] [address] [address] Kiesha Monk Cholesterol in LDL [Mass/Vol] 140.4 mg/dL Normal [facility] Comment on above: Performed By: #### T SH, LIPID, CMP, FT3 #### [facility] [address] [address] [address] Kiesha Monk Cholesterol.total/C holesterol in HDL [Mass ratio] 3.2 {ratio} Normal [facility] Comment on above: Performed By: #### T SH, LIPID, CMP, FT3 #### [facility] [address] [address] [address] Kiesha Monk HDL NORMAL > or = 60 mg/dl - LO W CARDIOVASCULAR RISK <40 mg/dl - HIGH CARDIOVASCULAR RISK Normal [facility] Comment on above: Performed By: #### T SH, LIPID, CMP, FT3 #### [facility] [address] [address] [address] Kiesha Monk LDL CALC NORMAL SEE BELOW Normal [facility] Comment on above: Result Comment: <100 mg/dl OPTIMAL 100 - 129 mg/dl NEAR OR ABOVE OPTIMAL 130 - 159 mg/dl BORDERLINE HIGH 160 - 189 mg/dl HIGH >190 mg/dl VERY HIGH Performed By: #### T SH, LIPID, CMP, FT3 #### [facility] [address] [address] [address] Kiesha Monk Triglyceride [Mass/Vol] 73 mg/dL Normal <=150 [facility] Comment on above: Performed By: #### T SH, LIPID, CMP, FT3 #### [facility] [address] [address] [address] Kiesha Monk VLDL CALC 14.6 mg/dL Normal [facility] Comment on above: Performed By: #### T SH, LIPID, CMP, FT3 #### [facility] [address] [address] [address] Kiesha Monk PROF 14(COMP METB)on 022 Albumin [Mass/Vol] 3.6 g/dL Normal 3.4-5.0 [facility] Comment on above: Performed By: #### T SH, LIPID, CMP, FT3 #### [facility] [address] [place] [address] Dr. Kiesha Monk Albumin/Globulin [Mass ratio] 1.0 {ratio} Normal [facility] Comment on above: Performed By: #### T SH, LIPID, CMP, FT3 #### [facility] [address] [place] [address] Dr. Kiesha Monk ALP [Catalytic activity/Vol] 63 U/L Normal 46-116 [facility] Comment on above: Performed By: #### T SH, LIPID, CMP, FT3 #### [facility] [address] [place] [address] Dr. Kiesha Monk ALT [Catalytic activity/Vol] 23 U/L Normal 14-59 [facility] Comment on above: Performed By: #### T SH, LIPID, CMP, FT3 #### [facility] [address] [place] [address] Dr. Kiseha Monk Anion gap [Moles/Vol] 10.4 mmol/L Normal [facility] Comment on above: Performed By: #### T SH, LIPID, CMP, FT3 #### [facility] [address] [place] [address] Dr. Kiesha Monk AST [Catalytic activity/Vol] 24 U/L Normal 15-37 [facility] Comment on above: Performed By: #### T SH, LIPID, CMP, FT3 #### [facility] [address] [place] [address] Dr. Kiesha Monk Bilirubin [Mass/Vol] 0.5 mg/dL Normal 0.2-1.0 [facility] Comment on above: Performed By: #### T SH, LIPID, CMP, FT3 #### [facility] [address] [place] [address] Dr. Kiesha Monk Calcium [Mass/Vol] 9.1 mg/dL Normal 8.5-10.1 [facility] Comment on above: Performed By: #### T SH, LIPID, CMP, FT3 #### [facility] [address] [place] [address] Dr. Kiesha Monk Chloride [Moles/Vol] 103 mmol/L Normal 98-107 [facility] Comment on above: Performed By: #### T SH, LIPID, CMP, FT3 #### [facility] [address] [address] [address] Kiesha Monk CO2 [Moles/Vol] 29.8 mmol/L Normal 21.0-32.0 [facility] Comment on above: Performed By: #### T SH, LIPID, CMP, FT3 #### [facility] [address] [place] [address] Dr. Kiesha Monk Creatinine [Mass/Vol] 0.81 mg/dL Normal 0.55-1.02 [facility] Comment on above: Performed By: #### T SH, LIPID, CMP, FT3 #### [facility] [address] [place] [address] Dr. Kiesha Monk EGFR-AF DOMINICAN >60 Normal >=60 [facility] Comment on above: Performed By: #### T SH, LIPID, CMP, FT3 #### [facility] [address] [address] [address] Kiesha Monk EGFR-NON AF DOMINICAN >60 Normal >=60 [facility] Comment on above: Performed By: #### T SH, LIPID, CMP, FT3 #### [facility] [address] [place] [address] Dr. Kiesha Monk Globulin (S) [Mass/Vol] 3.5 g/dL Normal [facility] Comment on above: Performed By: #### T SH, LIPID, CMP, FT3 #### [facility] [address] [address] [address] Kiesha Monk Glucose [Mass/Vol] 96 mg/dL Normal 74-106 [facility] Comment on above: Performed By: #### T SH, LIPID, CMP, FT3 #### [facility] [address] [place] [address] Dr. Kiesha Monk Potassium [Moles/Vol] 4.2 mmol/L Normal 3.5-5.1 [facility] Comment on above: Performed By: #### T SH, LIPID, CMP, FT3 #### [facility] [address] [place] [address] Dr. Kiesha Monk Protein [Mass/Vol] 7.1 g/dL Normal 6.4-8.2 [facility] Comment on above: Performed By: #### T SH, LIPID, CMP, FT3 #### [facility] [address] [place] [address] Dr. Kiesha Monk Sodium [Moles/Vol] 139 mmol/L Normal 136-145 [facility] Comment on above: Performed By: #### T SH, LIPID, CMP, FT3 #### [facility] [address] [place] [address] Dr. Kiesha Monk Urea nitrogen [Mass/Vol] 13.0 mg/dL Normal 7.0-18.0 [facility] Comment on above: Performed By: #### T SH, LIPID, CMP, FT3 #### [facility] [address] [place] [address] Dr. Kiesha Monk Urea nitrogen/Creatinine [Mass ratio] 16.0 mg/mg Normal [facility] Comment on above: Performed By: #### T SH, LIPID, CMP, FT3 #### [facility] [address] [place] [address] Dr. Kiesha Monk TSHon 11-26-2021 TSH 2.116 uIU/mL Normal 0.358-3.740 [facility] Comment on above: Performed By: #### T SH, LIPID, CMP, FT3 #### [facility] [address] [place] [address] Dr. Kiesha Monk ASYMPTOMATIC COVID-19 ANTIGE Non 10-11-2021 EUA Statement SEE BELOW Normal [facility] Comment on above: Result Comment: This test [...] revoked sooner. Performed By: #### C VDAGA ####[facility] [address] [address]Dr. Kiesha Monk SARS-CoV-2 (COVID-19) RNA DEION+probe Ql (Unsp spec) Positive Critically abnormal NEGATIVE [facility] Comment on above: Result Comment: SARS -CoV-2 antigen present; does not rule out coinfection with other pathogens. Performed By: #### C VDAGA ####[facility] [address] [address]Dr. Kiesha Monk Covid-19 PCR (CVDTB)on 09-17 SARS-CoV-2 (COVID-19) RNA DEION+probe Ql (Unsp spec) Detected Critically abnormal NOT DETECTED [facility] Comment on above: Result Comment: This test is not yet approved or cleared by the [place] FDA. When there are no FDA-approved or cleared tests available, and other criteria are met, FDA can make tests available under an emergency access mechanism called an Emergency Use Authorization (EUA). The EUA for this test is supported by the Night Shift Supervisor of Health and Human Service's declaration that [...] used). Performed By: #### C VDTBH #### [facility] [address] [address] [address] Kiesha Monk Provider Letter01-04-2021 Provider Letter January 04, 2021 January 04, 2021 DELANEY FRASER [id number] [phone] DELANEY FRASER 1975 Dear Richard , We have been trying to reach you with no success. It is important that you return our call regarding your referral from Dr. Jacek Caudra upon receiving this letter. Also, at the time of your call, please provide us with your current information. Thank you for your prompt attention to this matter. Sincerely, Dr. Joce Baird General Surgery office [phone] [facility] Physician Referralon 021 Physician Referral [phone] [id number] [facility] CNOVSPon 12-10-2018 CNOVSP Visit (SP) Office (HEMAS[place]) DELANEY FRASER ([id number]) 1975 F Date Time Provider Department 12/10/18 2:45 PM HENRIK CONDE) HEMASA During your visit today, we recorded the following information about you: Temperature Pulse Respiration Blood pressure 98 degrees 90/minute 18/minute 150/79 Weight Height Last Period 71.5 kg 1.682 m 11/19/18 Henrik Conde MD 12/10/2018 6:06 PM Signed PATIENT NAME: Delaney Fraser CLINIC NO.: [id number] ATTENDING PHYSICIAN: Henrik Conde MD DATE OF SERVICE: December 10, 2018 This document has been created with the use of voice recognition technology. It may contain inaccuracies, misspellings, inaccurate syntax or inappropriate word context that escaped review. Dear MARY Wheeler [address] [address] thank you for referring Miss Delaney Fraser [...] file Gets together: Not on file Attends muslim service: Not on file Active member of [...] 12/10/2018 1.87 1.00 - 4.00 k/uL Final [place]% Date Value Ref Range Status 12/10/2018 7.5 % Final Abs [place] Date Value Ref Range Status 12/10/2018 0.44 [...] below. Henrik Conde M.D. Hematology/Medical Oncology [facility] [phone] CC: Benito Hodges MD - (Inactive), In Basket (Inactive) - User (Inactive) [address] [facility] [address] () [phone] (Fax Referring Provider: MARY MORFIN [[id number]] Allergies As of Date: 12/10/2018 Noted Allergy Reaction SULFAMETHOXAZOLE 12/06/2018 16 - Unknown TRIMETHOPRIM 12/06/2018 16 - Unknown Date Reviewed: 12/10/2018 Reviewed by: Shaina Stahl - Fully Assessed Reason for Visit: Leukopenia [835] Cmt: new patient consult Primary Visit Diagnosis:Leukopenia, unspecified type [D72.819] Order(s):CBC + DIFF (FOR REMOTE C USE) [SQRCBCDF] Order #: [id number] FUTURE COMP METABOLIC PANEL [SQCMP] Order #: [id number] FUTURE IRON + TIBC [SQIRON] Order #: [id number] FUTURE FERRITIN BLD [SQFERR] Order #: [id number] FUTURE VITAMIN B12 BLOOD [SQB12] Order #: [id number] FUTURE FOLATE SERUM [SQSERFOL] Order #: [id number] FUTURE IMMUNOGLOBULINS YECENIA [SQSERIMM] Order #: [id number] FUTURE Disposition: Return if symptoms worsen or fail to improve. Follow-up and Disposition History Recorded Prescriptions as of 12/10/2018 Sig: MULTIVITAMIN CAPSULE Take 1 capsule by mouth once * CYANOCOBALAMIN (VIT B-12) 1,0* Take 1,000 mcg by mouth once * Problem List As Of Date: 12/10/2018 (None) Encounter Status:Closed by HENRIK CONDE MD on 12/10/18 Normal [facility] Comp Metabolic Panelon 12-10 Albumin [Mass/Vol] 4.5 g/dL Normal 3.9-4.9 [facility] ALP [Catalytic activity/Vol] 52 U/L Normal 34-123 [facility] ALT [Catalytic activity/Vol] 11 U/L Normal 7-38 [facility] Anion gap [Moles/Vol] 10 mmol/L Normal 9-18 [facility] AST [Catalytic activity/Vol] 19 U/L Normal 13-35 [facility] Bilirubin [Mass/Vol] 0.3 mg/dL Normal 0.2-1.3 [facility] Calcium [Mass/Vol] 9.1 mg/dL Normal 8.5-10.2 [facility] Chloride [Moles/Vol] 103 mmol/L Normal 97-105 [facility] CO2 [Moles/Vol] 26 mmol/L Normal 22-30 [facility] Creatinine [Mass/Vol] 0.80 mg/dL Normal 0.58-0.96 [facility] eGFR- Amer. >60 Normal [facility] GFR/1.73 sq M predicted among non-blacks MDRD (S/P/Bld) [Vol rate/Area] mL/min/{1.73_m2} Normal [facility] Comment on above: Result Comment: eGFR (Estimated [...] GFR. Glucose [Mass/Vol] 134 mg/dL High 74-99 [facility] Comment on above: Result Comment: The [place] Diabetes Association (ADA) provides guidance for cutoff [...] Standards of Medical Care in Diabetes 2016, [place] Diabetes Association. Diabetes Care. 2016.39(Suppl 1). Potassium [Moles/Vol] 3.8 mmol/L Normal 3.7-5.1 [facility] Protein [Mass/Vol] 7.0 g/dL Normal 6.3-8.0 [facility] Sodium [Moles/Vol] 139 mmol/L Normal 136-144 [facility] Urea nitrogen [Mass/Vol] 13 mg/dL Normal 7-21 [facility] Ferritinon 12-10-2018 Ferritin [Mass/Vol] 35.1 ng/mL Normal 14.7-205.1 [facility] Comment on above: Performed By: #### I KAISER, FERR, B12, SERFOL, SERIMM #### [facility] [employer] [address] [place], [place] [id number] Folate, Serumon 12-10-2018 Folate [Mass/Vol] 13.4 ng/mL Normal >4.7 [facility] Comment on above: Performed By: #### I KAISER, FERR, B12, SERFOL, SERIMM #### [facility] [employer] [address] [place], [place] [id number] Immunoglobulins GAMon 2018 IgA [Mass/Vol] 190 mg/dL Normal 78-391 [facility] Comment on above: Performed By: #### I KAISER, FERR, B12, SERFOL, SERIMM #### [facility] [address] [phone] IgG [Mass/Vol] 1290 mg/dL Normal 717-1411 [facility] Comment on above: Performed By: #### I KAISER, FERR, B12, SERFOL, SERIMM #### [address] [phone] IgM [Mass/Vol] 145 mg/dL Normal 53-334 [facility] Comment on above: Performed By: #### I KAISER, FERR, B12, SERFOL, SERIMM #### [address] [phone] Iron and TIBCon 12-10-2018 Iron [Mass/Vol] 125 ug/dL Normal 41-186 [facility] Comment on above: Performed By: #### I KAISER, FERR, B12, SERFOL, SERIMM #### [address] [phone] TIBC 344 ug/dL Normal 232-386 [facility] Comment on above: Performed By: #### I KAISER, FERR, B12, SERFOL, SERIMM #### [address] [phone] Transferrin Saturatn 36 % Normal 15-57 [facility] Comment on above: Performed By: #### I KAISER, FERR, B12, SERFOL, SERIMM #### [address] [phone] PROGRESSon 12-10-2018 PROGRESS HNO ID: [id number] Author: Henrik Conde Service: ? Author Type: Physician Type: Progress Notes Filed: 12/10/2018 6:06 PM Note Text: PATIENT NAME: Delaney Fraser [facility] NO.: [id number] ATTENDING PHYSICIAN: Henrik Conde MD DATE OF SERVICE: December 10, 2018 This document has been created with the use of voice recognition technology. It may contain inaccuracies, misspellings, inaccurate syntax or inappropriate word context that escaped review. Dear MARY Wheeler [address] [facility] [address] [facility] [phone] thank you for referring Miss Delaney Fraser [...] file Gets together: Not on file Attends muslim service: Not on file Active member of [...] 12/10/2018 1.87 1.00 - 4.00 k/uL Final [place]% Date Value Ref Range Status 12/10/2018 7.5 % Final Abs [place] Date Value Ref Range Status 12/10/2018 0.44 [...] Henrik Conde M.D. Hematology/Medical Oncology [facility] [phone] CC: Benito Hodges MD - (Inactive), In Basket (Inactive) - User (Inactive) [address] [facility] [address] (Ph) [phone] (Fax Normal [facility] Remote CBCDIF (for [facility] use o nly)on 12-10-2018 Abs Baso <0.03 Normal 0.00-0.10 [facility] Abs [place] 0.44 k/uL Normal 0.00-0.86 [facility] Abs Neut 3.51 k/uL Normal 1.45-7.50 [facility] Basophils/100 WBC (Bld) 0.3 % Normal [facility] Eosinophils (Bld) [#/Vol] 0.05 10*3/uL Normal 0.00-0.45 [facility] Eosinophils/100 WBC (Bld) 0.8 % Normal [facility] Erythrocyte distribution width (RBC) [Ratio] 12.3 % Normal 11.5-15.0 [facility] Hematocrit (Bld) [Volume fraction] 39.5 % Normal 36.0-46.0 [facility] Hemoglobin (Bld) [Mass/Vol] 13.5 g/dL Normal 11.5-15.5 [facility] Lymphocytes (Bld) [#/Vol] 1.87 10*3/uL Normal 1.00-4.00 [facility] Lymphocytes/100 WBC (Bld) 31.7 % Normal [facility] MCH (RBC) [Entitic mass] 32.2 pG Normal 26.0-34.0 [facility] MCHC (RBC) [Mass/Vol] 34.2 g/dL Normal 30.5-36.0 [facility] MCV (RBC) [Entitic vol] 94.3 fL Normal 80.0-100.0 [facility] Monocytes/100 WBC (Bld) 7.5 % Normal [facility] Neutrophils/100 WBC (Bld) 59.7 % Normal [facility] Platelet mean volume (Bld) [Entitic vol] 11.2 fL Normal 9.0-12.7 [facility] Platelets (Bld) [#/Vol] 194 10*3/uL Normal 150-400 [facility] RBC (Bld) [#/Vol] 4.19 10*6/uL Normal 3.90-5.20 [facility] WBC (Bld) [#/Vol] 5.89 10*3/uL Normal 3.70-11.00 [facility] Vitamin B12on 12-10-2018 Cobalamin (Vitamin B12) [Mass/Vol] 579 pg/mL Normal 232-1245 [facility] Comment on above: Performed By: #### I KAISER, FERR, B12, SERFOL, SERIMM #### [facility] [address] [place], [place] [address] Vital Signs Date Time Vital Sign Value Performing Clinician Carmine tate 12-05-2023 11:40-0400 Body height 167.6 cm Elizabeth Rinkes DO Work Phone: [facility] 12-05-2023 11:40-0400 Body mass index (BMI) [Ratio] 25.82 kg/m2 Elizabeth Rinkes DO Work Phone: [facility] 12-05-2023 11:40-0400 Body weight 72.58 kg Elizabeth Rinkes DO Work Phone: [facility] 12-05-2023 11:40-0400 Diastolic blood pressure 80 mm[Hg] Elizabeth Rinkes DO Work Phone: [facility] 12-05-2023 11:40-0400 Systolic blood pressure 130 mm[Hg] Elizabeth Rinkes DO Work Phone: [facility] Healthcare Encounters Encounter Date Encounter Type Care Provider Facility Start: 12-05-2023 End: 12-05-2023 Bamboo flowsheet Elizabeth E Rinkes DO Work Phone: [facility] Start: 12-05-2023 End: 12-05-2023 Bamboo flowsheet Elizabeth E Rinkes DO Work Phone: [facility] Start: 12-05-2023 End: 12-05-2023 Patient encounter status Elizabeth E Rinkes DO Work Phone: [facility] Work Phone: Start: 12-05-2023 End: 12-05-2023 Periodic preventive med est patient 40-64yrs Elizabeth Clau Rinkes DO Work Phone: [facility] Comment on above: Encounter for gyneco logical examination without abnormal finding (Primary Dx); Screening for malignant neoplasm of cervix; Encounter for screening mammogram for breast cancer; Oral contraceptive pill surveillance Start: 12-05-2023 End: 12-05-2023 ambulatory ELIZABETH GOMEZ Not Available Start: 10-19-2022 ambulatory Ms. 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 Phone: SG-Chtobotrh-Vfmjhcnt B 077 Work Phone: Start: 02-25-2022 End: 02-26-2022 ambulatory ELIZABETH GOMEZ Facility:H1 Start: 12-03-2021 Encounter for genera l adult medical examination without abnormal findings DR MASSIMO READ [facility] Start: 11-26-2021 End: 11-27-[address] MASSIMO READ Facility:[facility]1 Start: 11-26-2021 End: 11-27-2021 Encounter for general adult medical examination without abnormal findings DR MASSIMO READ Facility:[facility]1 Start: 10-11-2021 End: 10-11-2021 ambulatory GONZALEZ VALLADARES Facility:[facility]1 Start: 2021 End: 2021 ambulatory FRANCIA FRANCO Facility:H1 Start: 04-05-2021 Rx Renewal Odalys Huerta PRN-BENDING FRAME OPERATOR Work Phone: HV-Fkrfqumwj-Idggeysm B 836 Work Phone: Start: 03-24-2021 Office outpatient vi sit 25 minutes Odalys Leon RAZOR SHARPENER-BENDING FRAME OPERATOR Work Phone: CX-Itqasgbsv-Stubgdqk B 488 Work Phone: Start: 03-23-2021 End: 03-23-2021 ambulatory ANGELICA LOWERY Facility:H1 Start: 03-04-2021 AUDIT Odalys Leon Huerta PRN-BENDING FRAME OPERATOR Work Phone: [id number]-Cspdayeb B 613 Work Phone: Start: 08-21-2017 End: 08-22-2017 Ambulatory DEFAULT PHYSICIAN Facility:[facility] Procedures Date Procedure Procedure Detail Performing Clinician Start: 2022 Microscopic observat ion [Identifier] in Cervix by Cyto stain Elizabeth Gomez DO Work Phone: Start: 08-26-2021 Mammography Elizabeth carlos DO Work Phone: Plan of Treatment Date Care Activity Detail Author Start: 10-06-2027 Screening for malign ant neoplasm of cervix [facility] Start: 2025 Screening for malign ant neoplasm of cervix Pap Smear [facility] Start: 12-05-2023 End: 12-05-2023 Patient encounter procedure 12/05/2023 11:30 AM EDT Office Visit [facility] [address] [place] [address] Elizabeth Gomez DO [address] [place] [address] Encounter for gynecological examination without abnormal finding; Screening for malignant neoplasm of cervix; Encounter for screening mammogram for breast cancer; Encounter for surveillance of contraceptive pills [facility] Comment on above: Encounter for gyneco logical examination without abnormal finding; Screening for malignant neoplasm of cervix; Encounter for screening mammogram for breast cancer; Encounter for surveillance of contraceptive pills Start: 11-19-2023 Influenza vaccination Influenza Vacc ine (#1) [facility] Start: 08-26-2022 Screening for malign ant neoplasm of breast Mammogram [facility] Start: 03-23-2021 VANCE, Provider : Odalys Quintero, Status: Pen, Time: 2:00 PM VANCE, Provider: Odalys Quintero, Status: Pen, Time: 2:00 PM PA-Sgsrhmkeh-Snwmrcd e B 101 Work Phone: Start: 1975 Screening for malign ant neoplasm of colon [facility] DBT Breast - bilater al screening Bilateral screening mammogram with tomosynthesis Imaging Routine Encounter for screening mammogram for breast cancer Ordered: 12/05/2023 [facility] Comment on above: Ordered: 12/05/2023 SENDOUT TEST MISCELLANEOUS [facility] SENDOUT TEST MISCELLANEOUS [facility] Lab Routine Screening for malignant neoplasm of cervix Ordered: 12/05/2023 [facility] Work Phone: Comment on above: Ordered: 12/05/2023 Immunizations Immunization Date Immunization Notes Care Provider Dayo briggs 01-03-2020 influenza virus vacc ine, unspecified formulation Elizabeth Gomez DO Work Phone: [facility] Payers Date Payer Category Payer Unknown 2022 Unknown [id number] 2019 Unknown [id number] 1975 Unknown [id number] 2.16.84 [id number] 1975 Unknown [id number] 2.16.84 [id number] 1975 Unknown [id number] 2.16.84 [id number] 1975 Unknown [id number] 2.16.84 [id number] 1975 Unknown [id number] 2.16.84 [id number] 1975 Unknown [id number] 2.16. [id number] 1975 Unknown [id number] 2.16.84 [id number] Social History Date Type Detail Facility Start: 2022 Tobacco smoking status [facility] Never sm oked tobacco [facility] [...] year,Caffeine intake: 1-2 cups per day coffee [facility] Healthcare Start: 1975 Sex assigned at Not [...] 1 Term Obstetric Comments Pap smear 10/05/22 [facility], Mammogram 02/25/22 wn @ [place] Review of Systems - General: Chills denies. [...] Review Audit Reviewed by Teresa Brown MA (Litigation Partner) on 01/19/23 at 1617 Medication Order Taking? Sig Documenting Provider Last Dose Status ALPRAZolam (Xanax) 0.25 MG tablet [id number] 1 (one) time each day at the same time. Historical Provider, Active clobetasol (Temovate) 0.05 % ointment [id number] Apply thin light layer to affected tissues externally twice daily x 14 days, daily x 7 days, then every other day x 7 days Elizabeth Gomez DO Active cyanocobalamin (Vitamin B-12) 1000 MCG tablet [id number] Take 1,000 mcg by mouth in the morning. Historical Provider, Active DULoxetine (Cymbalta) [address] capsule [id number] Take 60 mg by mouth in the morning. Historical Provider, Active MULTIPLE VITAMIN IV [id number] 1 (one) time each day at the same time. Historical Provider, Active norgestimate-ethinyl estradiol (Munira) 0.25-35 MG-MCG tablet [id number] Take 1 tablet by mouth in the [...] was utilized to provide this telehealth service. RO-Bmaqhqfog-Cbxylhyo B 101 Work Phone: Evaluation note Note [...] not corrected for typographical or grammatical errors CE-Wdrbcqbqn-Pbecwaku B 101 Work Phone: Summary Purpose Family [...] section and content) DATE CREATED AUTHOR 09/05/2017 [facility] DATE CREATED AUTHOR AUTHOR'S ORGANIZ ATION 12/22/2018 [facility] DATE CREATED AUTHOR AUTHOR'S ORGANIZ ATION 01/05/2021 [facility] DATE CREATED AUTHOR AUTHOR'S ORGANIZ ATION 03/01/2022 [facility] DATE CREATED AUTHOR AUTHOR'S ORGANIZ ATION 10/20/2022 [facility] DATE CREATED AUTHOR AUTHOR'S ORGANIZ ATION 10/20/2022 [facility] DATE CREATED AUTHOR AUTHOR'S ORGANIZ ATION 12/07/2023 [facility] d[facility] Specialists [facility] Care Teams (unrecognized sec tion and content) Making Machine Operator Relationship Specialty Start Date End Date Massimo Read MD [address] [place] [address] PCP - General Family Medicine 10/05/22 Making Machine Operator Relationship Specialty Start Date End Date Massimo Read MD [address] [place] [phone] PCP - General Family Medicine 10/05/22 Reason [...] BE BASED ON THE PRIMARY CLINICAL RECORDS. [employer] provides no warranty or guarantee of the accuracy or completeness of information in this document.
[2024-08-21 08:54] LABS: Basophils Percent Auto 0.6 % (0.2-2.0); Eosinophils Absolute Auto 0.1 10^3/uL (0.0-0.7); Eosinophils Percent Auto 1.2 % (0.9-7.0); Hematocrit 38.2 % (36.0-48.0); Hemoglobin 13.2 g/dL (12.0-16.0); Immature Granulocytes Abs Auto 0.01 10^3/uL (0.00-0.03); Immature Granulocytes Pct Auto 0.2 % (0.0-0.5); Lymphocytes Absolute Auto 1.7 10^3/uL (1.2-3.8); Lymphocytes Percent Auto 34.8 % (20.5-60.0); Mean Corpuscular HGB Conc 34.6 g/dL (29.9-35.2); Mean Corpuscular Hemoglobin 32.2 pg (26.7-34.0); Mean Corpuscular Volume 93.2 fL (81.0-99.0); Mean Platelet Volume 11.1 fL (9.5-13.5); Monocytes Absolute Auto 0.4 10^3/uL (0.3-0.8); Monocytes Percent Auto 7.1 % (1.7-12.0); Neutrophils Absolute Auto 2.8 10^3/uL (1.4-6.5); Neutrophils Percent Auto 56.1 % (43.0-75.0); Platelet Count 207 10^3/uL (150-450); White Blood Count 4.9 10^3/uL (4.0-11.0)
[2024-08-21 09:07] LABS: Estimated Average Glucose 105 mg/dL; Glycohemoglobin A1C 5.3 % (4.5-6.2)
[2024-08-21 09:10] LABS: Alanine Aminotransferase 20 U/L (14-59); Albumin Globulin Ratio 0.9; Albumin Level 3.2 g/dL (3.4-5.0); Alkaline Phosphatase 55 U/L (46-116); Anion Gap 12.2; Aspartate Amino Transferase 21 U/L (15-37); BUN Creatinine Ratio 15.9; Bilirubin Total 0.5 mg/dL (0.2-1.0); Carbon Dioxide 28.1 mmol/L (21.0-32.0); Chloride 105 mmol/L (98-107); Chol HDL Ratio 2.7; Cholesterol 191 mg/dL (<=200); Estimated GFR (African America >60 (>=60 mL/min/1.73m^2); Estimated GFR (Non-African Ame >60 (>=60 mL/min/1.73m^2); Free T3 2.37 pg/mL (2.18-3.98); Globulin 3.7 g/dL; Glucose 96 mg/dL (74-106); HDL Cholesterol 70 mg/dL (40-60); Potassium 4.3 mmol/L (3.5-5.1); Sodium 141 mmol/L (136-145); Thyroid Stimulating Hormone 2.241 uIU/mL (0.358-3.740); Total Protein 6.9 g/dL (6.4-8.2); Triglycerides 94 mg/dL (<=150); VLDL CHOLESTEROL 18.8 mg/dL
== END 2024-08-21 07:54 | disposition home or self-care (01) ==
LOC: US 07:54
PROVIDERS: PCP Family Medicine; Visit Provider Family Medicine
DX: Z00.00 Encounter for general adult medical examination without abnormal findings (principal)
CPT/HCPCS: 36415; 76706; 80053; 80061; 83036; 83540; 84436; 84443; 84481; 85025

== ENCOUNTER 2024-12-30 07:25 | Outpatient (OUT) | payer BC, SELFPAY ==
--- OUTSIDE RECORDS SUMMARY | 2024-12-19 09:45 | XMS_ITS | Encounter Summary ---
Author Organization [facility] Address [address] [place] [place] [address] Care Team Providers Care Car Record Clerk Name Role Phone Immanuel Read MD Primary Care Provider [phone] Reason for Visit * Reason Comments Gynecologic Exam Pt c/o vulvar drynes s/redness/itching. Denies bowel/bladder/breast concerns. LMP 11/28/24 menses regular with OCP. Encounter Details Date Type Department Care Team (Late st Contact Info) Description 12/19/2024 9:45 AM EDT Office Visit BRENDAJasmin McintyreJosephanastacia ASHER [address] [place] [address] Elizabeth Gomez DO [address] [place] [address] Encounter for gynecological examination without abnormal finding (Primary Dx); Screening for malignant neoplasm of cervix; Encounter for screening mammogram for breast cancer; Oral contraceptive pill surveillance; Chronic vulvitis Social History Tobacco Use Types Packs/Day Years Used Date Smoking Tobacco: Never Alcohol Use Standard Drinks/Week Comments Yes 0 (1 standard drink = 0.6 oz pure alcohol) 1-2 drinks 2-4x a month in the past year,Caffeine intake: 1-2 cups per day coffee AUDIT-C Answer Date Recorded Q1: How often do you have a drink containing alc ohol? 2-4 times a month 01/18/2023 Q2: How many drinks containi ng alcohol do you have on a typical day when you are drinking? 1 or 2 01/18/2023 Q3: How often do you have si x or more drinks on one occasion? Never 01/18/2023 Comments Unknown Sex and Gender Information Value Date Recorded Sex Assigned at Not on file Legal Sex Female 6:34 PM EDT Gender Identity Not on file Sexual Orientation Not on file documented as of this encounter Last Filed Vital Signs Vital Sign Reading Time Taken Comments Blood Pressure 128/84 12/19/2024 9:41 AM EDT Pulse - - Temperature - - Respiratory Rate - - Oxygen Saturation - - Inhaled Oxygen Concentration - - Weight 75.8 kg (167 lb) 12/19/2024 9:41 AM EDT Height - - Body Mass Index 26.95 12/05/2023 11:40 AM EDT documented in this encounter Progress Notes * Elizabeth Gomez, DO - 12/19/2024 9:45 AM EDT Images from the original note were not included. Elizabeth Gomez D.O. Obstetrics and Gynecology Patient: Delaney Padilla : 1975 (49 y.o.) Yearly Wellness Exam Date: 12/19/2024 Reason for Visit - Chief Complaint Patient presents with Gynecologic Exam Pt c/o vulvar dryness/redness/itching. Denies bowel/bladder/breast concerns. LMP 11/28/24 menses regular with OCP. Visit Vitals BP 128/84 Wt 167 lb LMP 11/28/2024 BMI 26.95 kg/m?? Smoking Status Never BSA 1.88 m?? Allergies Allergen Reactions Sulfamethoxazole Other Reaction(s): Unknown Trimethoprim Other Reaction(s): Unknown History of Present Illness, Associated Treatments and Results - OB History Para Term AB Living 2 2 2 0 0 0 SAB IAB Ectopic Multiple Live Births 0 0 0 0 0 # Outcome Date GA Lbr Devan/2nd Weight Sex Type Anes PTL Lv 2 Term 1 Term Obstetric Comments Pap smear 12/05/23 wnl, Mammogram 12/22/23 wnl @ [place] Review of Systems - General: Chills denies. [...] Audit Reviewed by Teresa Brown MA (Software Reverse Engineer) on 12/19/24 at 0940 Medication Order Taking? Sig Documenting Provider Last Dose Status Discontinued 12/19/24 0940 ALPRAZolam (Xanax) 0.25 MG tablet [id number] 1 (one) time each day at the same time. Historical ProviderMD Active clobetasol (Temovate) 0.05 % ointment [id number] Apply thin light layer to affected tissues externally twice daily x 14 days, daily x 7 days, then every other day x 7 days Elizabeth Gomez, DO Active cyanocobalamin (Vitamin B-12) 1000 MCG tablet [id number] Take 1,000 mcg by mouth in the morning. Historical ProviderMD Active DULoxetine (Cymbalta) [address] capsule [id number] Take 60 mg by mouth in the morning. Historical ProviderMD Active Munira 0.25-35 MG-MCG tablet [id number] TAKE 1 TABLET BY MOUTH EVERY DAY Elizabeth Gomez, DO Active MULTIPLE VITAMIN IV [id number] 1 (one) time each day at the same time. Historical ProviderMD Active Past Medical History: Diagnosis Date Anxiety [...] to gross testing, coordination, and gait are normalor at baseline unless noted below. General Examination: [...] angle tenderness, no obvious scoliosis/kyphosis. FEMALE GENITOURINARY: vulvar inflammation- appears to be psoriasis, normal vaginal mucosa, cervix absent of lesions, nontender, uterus AV, mobile, ovaries nonpalpable and nontender. EXTREMITIES: no edema. NEUROLOGIC: alert and oriented. PSYCH: cooperative with exam. Diagnoses and all orders for this visit: Encounter for gynecological examination without abnormal finding Screening for malignant neoplasm of cervix - IGP, RFX APTIMA HPV ASCU Encounter for screening mammogram for breast cancer - Bilateral screening mammogram with tomosynthesis Oral contraceptive pill surveillance Chronic vulvitis - clobetasol (Temovate) 0.05 % ointment; Apply thin light layer to affected tissues externally twice daily x 14 days, daily x 7 days, then every other day x 7 days Pap, pelvic and breast exam completed. Findings of today's exam discussed with the patient. Continue MSBE. Ca/Vit D recommendations reviewed with the patient. The patient is to contact the office with any changes to her gynecological condition. The patient is to return in 1 year or as needed Error with last year's note regarding vulvitis. Patient did have biopsy in 01/2023- consistent withdermatitis- possibly psoriasis. Does appear to be psoriasis. Patient was recommended to make appointment with dermatology previously- has not done yet. Discussed possible treatments derm could provide. Clobetasol refilled ICD-10-CM 1. Encounter for gynecological examination without abnormal finding Z01.419 2. Screening for malignant neoplasm of cervix Z12.4 IGP, RFX APTIMA HPV ASCU 3. Encounter for screening mammogram for breast cancer Z12.31 Bilateral screening mammogram with tomosynthesis 4. Oral contraceptive pill surveillance Z30.41 5. Chronic vulvitis N76.3 clobetasol (Temovate) 0.05 % ointment documented in this encounter Plan of Treatment Upcoming Encounters Date Type Department Care Team ([facility] st Contact Info) Description 01/01/2026 9:45 AM EDT Office Visit [facility] [place] [facility] [address] [place] [phone] Elizabeth Gomez DO [address] [place] [address] Scheduled Orders Name Type Priority Associated Diagnoses Orde r Schedule Bilateral screening mammogram with tomosynthesis Imaging Routine Encounter for screening mammogram for breast cancer Ordered: 12/19/2024 documented as of this encounter Procedures Procedure Name Priority Date/Time Associated Diagnosis Comments IGP, RFX APTIMA HPV ASCU Routine 12/19/2024 12:00 AM EDT Screening for malignant neoplasm of cervix documented in this encounter Results * IGP, RFX APTIMA HPV ASCU (12/19/2024 12:00 AM EDT) Diagnosis: Comment [facility] Comment:NEGATIVE FOR INTRAEP ITHELIAL LESION OR MALIGNANCY. Specimen Adequacy: Comment [facility] Comment: Satisfactory for evaluation. Endocervical and/or squamous metaplastic cells (endocervical component) are present. Clinician Provided ICD10: Comment [facility] Comment:Z12.4 Performed By: Comment [facility] Comment:Mary Appiah, Cyto logist (ASCP) Cyto Comments . [facility] Note: Comment [facility] Comment: The Pap smear is a screening test designed to aid in the detection of premalignant and malignant conditions of the uterine cervix. It is not a diagnostic procedure and should not be used as the sole means of detecting cervical cancer. Both false-positive and false-negative reports do occur. Test Methodology: Comment [facility] Comment: This liquid based ThinPrep(R) pap test was screened with the use of an image guided system. . Comment [facility] Comment: The HPV DNA reflex criteria were not met with this specimen result therefore, no HPV testing was performed. 12/19/2024 12/20/2024 Narrative [facility] - 12/24/2024 1:07 PM EDT Performed at: [address] [place] [address] Cyto Histo [address] [place], [place] [id number] Cranberry Grower: Milton Wright MD, Phone: [phone] Performed at: [facility] [address] [id number] Cranberry Grower: Deirdre Umaña MD, Phone: [phone] Specimen Comment: [id number] Specimen Comment: No. of containers..01 ThinPrep Vial Elizabeth Gomez DO LAB BLOOD ORDERABLES Final Result [facility] documented in this encounter Visit Diagnoses Diagnosis Encounter for gynecological examination without abnormal finding- Primary Screening for malignant neoplasm of cervix Screening for malignant neoplasm of the cervix Encounter for screening mammogram for breast cancer Oral contraceptive pill surveillance Chronic vulvitis Unspecified vaginitis and vulvovaginitis documented in this encounter Care Teams Car Record Clerk Relationship Specialty Start Date End Date Immanuel Read MD PCP - General Family Medicine 10/05/22 documented as of this encounter
--- OUTSIDE RECORDS SUMMARY | 2024-12-30 07:27 | XMS_ITS | Clinical Summary ---
Author Organization [facility] Healthcare Address [address] [place] [address] Care Team Providers Care Supervisor Machine Workers Name Role Phone Immanuel Read MD Primary Care Provider [phone] Allergies Active Allergy Reactions Criticality Noted Date Comments Sulfamethoxazole 12/06/2018 Other Reaction(s): Unknown Trimethoprim 12/06/2018 Other Reaction(s): Unknown Medications MULTIPLE VITAMIN IV 1 (one) time each day at the same time. Active ALPRAZolam (Xanax) 0.25 MG tablet 1 (one) time each day at the same time. Active cyanocobalamin (Vitamin B-12) 1000 MCG tablet Take 1,000 mcg by mouth in the morning. Active DULoxetine (Cymbalta) [address] capsule Take 60 mg by mouth in the morning. Active Munira 0.25-35 MG-MCG tabletIndication s:Oral contraceptive pill surveillance TAKE 1 TABLET BY MOUTH EVERY DAY 84 tablet 3 11/05/19 25 Active clobetasol (Temovate) 0.05 % ointmentIndicati ons:Chronic vulvitis Apply thin light layer to affected tissues externally twice daily x 14 days, daily x 7 days, then every other day x 7 days 45 g 1 12/20/19 25 Active Adipex-P 37.5 MG tablet 1 (one) time each day at the same time 11/06/19 24 2024 Discontinued clobetasol (Temovate) 0.05 % ointmentIndicati ons:Vulvar irritation Apply thin light layer to affected tissues externally twice daily x 14 days, daily x 7 days, then every other day x 7 days 45 g 1 09/2024 Discontinued(R eorder) Encounters Date Type Department Care Team Description 12/19/2024 9:45 AM EDT Office Visit [facility] [address] [place] [address] Elizabeth Gomez, Encounter for gynecological examination without abnormal finding (Primary Dx); Screening for malignant neoplasm of cervix; Encounter for screening mammogram for breast cancer; Oral contraceptive pill surveillance; Chronic vulvitis 12/19/2024 Bamboo flowsheet [facility] [address] [place] [address] Elizabeth Gomez DO 12/19/2024 Travel 11/02/2024 Refill [facility] [address] [place] [address] Elizabeth Gomez, Oral contraceptive pill surveillance from Last 3 Months Family History Medical History Relation Name Comments Bladder Cancer Father Breast cancer Maternal Grandmother Melanoma Neg Hx Relation Name Status Comments Father Alive Maternal Grandmother Mother Alive Social History Tobacco Use Types Packs/Day Years Used Date Smoking Tobacco: Never Tobacco Cessation:Counseling Given: Not Answered Alcohol Use Standard Drinks/Week Comments Yes 0 [...] on file Sexual Orientation Not on file Last Filed Vital Signs Vital Sign Reading Time Taken Comments Blood Pressure 128/84 12/19/2024 9:41 AM EDT Pulse - - Temperature - - Respiratory Rate - - Oxygen Saturation - - Inhaled Oxygen Concentration - - Weight 75.8 kg (167 lb) 12/19/2024 9:41 AM EDT Height 167.6 cm (5' 6 ) 12/05/2023 11:40 AM EDT Body Mass Index 26.95 12/05/2023 11:40 AM EDT Plan of Treatment Upcoming Encounters Date Type Department Care Team (Late st Contact Info) Description 01/01/2026 9:45 AM EDT Office Visit [facility] [address] [place] [phone] Elizabeth Gomez DO [address] [place] [address] Health Maintenance Due Date Last Done Comments CT Colonography 1975 Colonoscopy 1975 Colorectal Cancer Screening 1975 FIT-DNA 1975 FIT 1975 FOBT 1975 Sigmoidoscopy 1975 Influenza Vaccine (#1) 2024 , 01/03/2020, 12/19/2019, Additional history exists Mammogram 12/21/2024 12/22/2023, 06/0 11/2021, 01/29/2021, Additional history exists Pap Smear 2025 2022 Cervical Cancer Screening 10/06/2027 HPV/Cotest 10/06/2027 2022, 06/1 , 05/27/2020, Additional history exists Procedures Procedure Name Priority Date/Time Associated Diagnosis Comments IGP, RFX APTIMA HPV ASCU Routine 12/19/2024 12:00 AM EDT Screening for malignant neoplasm of cervix BI MAMMOGRAM SCREENING TOMOSYNTHESIS BILATERAL Routine 12/22/2023 10:53 AM EDT Encounter for screening mammogram for breast cancer THINPREP TIS PAP W/REFL HPV MRNA E6/E7 Routine 2022 11:54 AM EDT Screening for malignant neoplasm of cervix from Last 3 Months or Most Recently Relevant to Health Maintenance Results * IGP, RFX APTIMA HPV ASCU [...] - 12/24/2024 1:07 PM EDT Performed at: [facility] [address] [place] [id number] Funeral Service Licensee: Milton Wright MD, Phone: [phone] Performed at: [address] [id number] Funeral Service Licensee: Deirdre Umaña MD, Phone: [phone] Specimen Comment: [id number] Specimen Comment: No. of containers..01 ThinPrep Vial us Elizabeth Gomez DO LAB BLOOD ORDERABLES Final Result [facility] * Bilateral screening mammogram with tomosynthesis (12/22/2023 10:53 AM EDT) us Elizabeth Gomez DO IMG BI PROCEDURES Final Res ult * THINPREP TIS PAP W/REFL HPV MRNA E6/E7 (2022 11:54 AM EDT) CLINICAL INFORMATION [facility] Comment:CX/ECC LMP [facility] Comment:09/26/22 PREV. PAP [facility] Comment:08/2021 PREV. BX [facility] Comment:NONE GIVEN SOURCE [facility] Comment:Cervix, Endocervix STATEMENT OF ADEQUACY [facility] Comment: Satisfactory for evaluation. Endocervical/transformation zone component present. INTERPRETATION/RESUL T [facility] Comment: Cytology Results: Negative for intraepithelial lesion or malignancy. CLASSIFIED AD CLERK [facility] Comment: [facility], CT(ASCP) CT Screening Location: [facility] [address] [address] (ALWAYS MESSAGE) [facility] Comment: EXPLANATORY NOTE: The Pap is a screening test for cervical cancer. It is not a diagnostic test and is subject to false negative and false positive results. It is most reliable when a satisfactory sample, regularly obtained, is submitted with relevant clinical findings and history, and when the Pap result is evaluated along with historic and current clinical information. Other 2022 11:5 4 AM EDT 10/06/2022 4:36 AM EDT Narrative Resulting Agency Comment Performing Organization Information Site ID: [id number] Name: [facility] Address: [address] [place] [address], [address] [place] [phone] Director: James Logan MD Elizabeth Gomez DO LAB CYTOLOGY ORDERABLES Fin al Result [facility] from Last 3 Months or Most Recently Relevant to Health Maintenance Insurance [employer] Care Teams Supervisor Machine Workers Relationship Specialty Start Date End Date Immanuel Read MD PCP - General Family Medicine 10/05/22
--- OUTSIDE RECORDS SUMMARY | 2024-12-30 07:27 | XMS_ITS | Encounter Summary ---
Author Organization [facility] Address [address] [place] [address] Care Team Providers Care Non Linear Editor Name Role Phone Immanuel Read MD Primary Care Provider [phone] Encounter Details Date Type Department Care Team (Latest Contact Info) Description 12/19/2024 Travel Social History Tobacco Use Types Packs/Day Years [...] on file documented as of this encounter Plan of Treatment Upcoming Encounters Date Type Department Care Team (Late st Contact Info) Description 01/01/2026 9:45 AM EDT Office Visit [facility] [address] [place] [phone] Elizabeth Gomez DO [address] [place] [address] documented as of this encounter Visit Diagnoses Not on filedocumented in this encounter Care Teams Non Linear Editor Relationship Specialty Start Date End Date Immanuel Read MD PCP - General Family Medicine 10/05/22 documented as of this encounter
--- OUTSIDE RECORDS SUMMARY | 2024-12-30 07:27 | XMS_ITS | Encounter Summary ---
Author Organization [facility] Address [address] [place] [address] Care Team Providers Care Newspaper Managing Editor Name Role Phone Immanuel Read MD Primary Care Provider [phone] Encounter Details Date Type Department Care Team (Late Contact Info) Description 12/19/2024 Bamboo flowsheet [facility] [address] [place] [phone] Elizabeth Gomez DO [address] [place] [address] Social History Tobacco Use Types Packs/Day Years [...] Encounters Date Type Department Care Team (Late Contact Info) Description 01/01/2026 9:45 AM EDT Office Visit [facility] [address] [place] [phone] Elizabeth Gomez DO [address] [place] [address] documented as of this encounter Visit Diagnoses Not on filedocumented in this encounter Care Teams Newspaper Managing Editor Relationship Specialty Start Date End Date Immanuel Read MD PCP - General Family Medicine 10/05/22 documented as of this encounter
--- OUTSIDE RECORDS SUMMARY | 2024-12-30 07:27 | XMS_ITS | CCD ---
Author Organization [facility] Care Team Providers Care Transfer And Line Up Worker Name Role Phone PHYSICIAN, DEFAULT Unavailable Unavailable PHYSICIAN, DEFAULT Unavailable Unavailable Unavailable Unavailable ELIZABETH GOMEZ Admitting Unavailable ELIZABETH GOMEZ Attending Unavailable KIEPERT, GONZALEZ Primary Care Unavailable DR ALO MARKS V Consulting Unavailable ELIZABETH GOMEZ Consulting Unavailable SALVADORFRANCIA TROY Admitting Unavailable SALVADORFRANCIA ALVARADO Attending Unavailable KIEPERT, ADENA Primary Care Unavailable SALVAODRFRANCIA ALVARADO Consulting Unavailable JACEK, DR KEYS Admitting Unavailable JACEK, DR KEYS Attending Unavailable KIEPERT, GONZALEZ Primary Care Unavailable DR MASSIMO READ Consulting Unavailable KIEPERT, GONZALEZ Primary Care Unavailable SALVADOR, FRANCIA Admitting Unavailable SALVADORFRANCIA TROY Attending Unavailable SALVADOR, FRANCIA Consulting Unavailable ANGELICA LOWERY Admitting Unavailable ANGELICA LOWERY Attending Unavailable [facility] Primary Care Unavailable ANGELICA LOWERY Consulting Unavailable Leon, Ms. Odalys Gusman Referring Unavailable Ms. Odalys Quintero Attending Unavailable Massimo Read MD Primary Care Provider [phone] Massimo Read MD Primary Care Provider [phone] ELIZABETH GOMEZ Attending Unavailable Allergies Allergy Classification Reported Allergen(s) Allergy Type Date of Onset Reaction(s) Facility (10 sources) Trimethoprim; Translations: [Trimethoprim TABS] Drug Allergy 9 [facility] [place] [facility] [address] Work Phone: (4 sources) Sulfamethoxazole-TMP DS TABS; Translations: [Sulfamethoxazole-TM P DS TABS] Allergy to drug (finding) [facility] [place] [facility] Work Phone: (6 sources) Sulfamethoxazole Allergy to substance 9 [facility] Medications Current Medications Medication Drug Class(es) Dates Sig (Normalized) Sig (Original) ALPRAZolam 0.25 mg oral tablet (6 sources) Benzodiazepine ALPRAZolam (Xana x) 0.25 MG tablet 1 (one) time each day at the same time. Active clobetasol propionate 0.0005 mg/mg topical ointment (8 sources) Corticosteroid Start: 12-19-2024 clobetasol (Temovate) 0.05 % ointment Indications: Chronic vulvitis Apply thin light layer to affected tissues externally twice daily x 14 days, daily x 7 days, then every other day x 7 days 45 g 1 12/19/2024 Active Start: 12-19-2024 clobetasol (Te movate) 0.05 % ointment Indications: Chronic vulvitis Apply thin light layer to affected tissues externally twice daily x 14 days, daily x 7 days, then every other day x 7 days 45 g 1 12/19/2024 Active Start: 2022 End: 12-19-2024 clobetasol (Temovate) 0.05 % ointment Indications: Vulvar irritation Apply thin light layer to affected tissues externally twice daily x 14 days, daily x 7 days, then every other day x 7 days 45 g 1 12/05/2023 12/19/2024 Discontinued (Reorder) ethinyl estradiol 0.035 mg / norgestimate 0.25 mg oral tablet (8 sources) Progestin, Estrogen Start: 12-05-2023 End: 12-04-2024 take 1 tablet by mouth once daily Munira 0.25-35 MG-MCG tablet Indications: Oral contraceptive pill surveillance TAKE 1 TABLET BY MOUTH EVERY DAY 84 tablet 3 11/04/2024 Active Start: 01-26-2023 End: 01-26-2024 norgestimate-ethinyl estradi ol (Munira) 0.25-35 MG-MCG tablet Indications: Encounter for surveillance of contraceptive pills Take 1 tablet by mouth in the morning. 28 tablet 12 01/26/2023 12/05/2023 Discontinued MULTIPLE VITAMIN IV (6 sources) MULTIPLE VITAMIN IV 1 (one) time each day at the same time. Active phentermine hydrochloride 37.5 mg oral tablet (5 sources) Sympathomimetic Amine Anorectic Start: 024 End: Adipex-P 37.5 MG tablet 1 (one) time each day at the same time 11/06/2023 12/19/2024 Discontinued vitamin b12 1 mg oral tablet (6 sources) Vitamin B12 take 1 tablet by [...] sources) Muscle Relaxant Start: 12-30-19 End: 03-24-19 take 1 tablet by mouth once daily at bedtime as needed Cyclobenzaprine HCl - 10 MG Oral Tablet TAKE 1 TABLET BY MOUTH EVERY DAY AT BEDTIME NEEDED Quantity: 30 Refills: 0 Ordered: 30-Dec-2019 DO Start : 30-Dec-2019 End : 24-Mar-2021 Complete DULoxetine 60 mg delayed release oral capsule (9 sources) Serotonin and Norepinephrine Reuptake Inhibitor Start: 03-24-19 22 take 1 capsule by mouth at bedtime DULoxetine HCl - 60 MG Oral Capsule Delayed Release Particles take 1 capsule by mouth at bedtime Quantity: 30 Refills: 0 Ordered: 24-Mar-2021 Leon SID Odalys Start : 24-Mar-2021 Active fludrocortisone acetate 0.1 mg oral tablet (4 sources) Start: 04-08-19 21 take 1 tablet by mouth once daily Fludrocortisone Acetate 0.1 MG Oral Tablet TAKE 1 TABLET BY MOUTH EVERY DAY Quantity: 90 Refills: 0 Ordered: 05-May-2022 Leon SID Odalys Start : 08-Apr-2020 Active Needs follow-up appointment for any further refills meclizine hydrochloride 25 mg oral tablet (2 sources) Antiemetic Start: 02-20-20 End: 03-24-19 22 take 1 tablet by mouth three times [...] tablet (2 sources) Start: 12-30-19 End: 03-24-19 22 take 2 tablets by mouth once daily predniSONE 20 MG Oral Tablet TAKE 2 TABLETS BY MOUTH EVERY DAY FOR 5 DAYS Quantity: 10 Refills: 0 Ordered: 30-Dec-2019 DO Start : 30-Dec-2019 End : 24-Mar-2021 Complete Sprintec 28 0.25-35 MG-MCG Oral Tablet (4 sources) Start: 12-25-19 20 take 1 tablet by mouth once daily Sprintec 28 0.25-35 MG-MCG Oral Tablet TAKE 1 TABLET BY MOUTH EVERY DAY Quantity: 84 Refills: 0 Ordered: 25-Dec-2019 DO Start : 25-Dec-2019 Active tranexamic acid 650 mg oral tablet (2 sources) Antifibrinolytic Agent Start: 04-18-19 20 End: 03-24-19 take 2 tablets by mouth [...] and giddiness] Episodic Contraceptive and procreative management (4 sources) Oral contraception; Translations: [Encounter for surveillance of contraceptive pills] 12-05-2023 Episodic Deficiency and other anemia (1 source) Anemia, unspecified; Translations: [ANEMIA UNSPECIFIED] Onset: 12-03-2021 Episodic Inflammatory diseases of female pelvic organs (2 sources) Chronic vulvitis; Translations: [Subacute and chronic vulvitis] 12-19-2024 Episodic Nutritional deficiencies (1 source) Vitamin D deficiency, unspecified; Translations: [VITAMIN D DEFICIENCY UNSPECIFIED] Onset: 12-03-2021 Chronic Other screening for suspected conditions (not mental disorders or infectious disease) (12 sources) Encounter for screening mammogram for malignant [...] EVERY DAY Signatures Electronically signed by : Odalys Quintero APRN-[employer]; Oct 19 2022 3:35PM EST (Author) Normal [facility] MG MAMM SCREEN 3D MAZIN CADon 02-25-2022 MG MAMM SCREEN 3D MAZIN CAD Patient: DELANEY FRASER Exam Date: 02/25/2022 : 1975 Gender:F Ordering : DR. ELIZABETH GOMEZ D.O. Admission #: [id number] Family : Order #: [id number] CLICK HERE TO VIEW EXAM RADIOLOGY REPORT [...] breast cancer at age 70. LOCATION: [facility] BREAST COMPOSITION: Extremely dense, which lowers the [...] MD on 02/25/2022 at 09:49 Normal [facility] VIT D 25-OH LABCORPon 2021 Vitamin D, 25-Hydroxy 48.6 ng/mL Normal 30.0-100.0 [facility] Comment on above: Result Comment: Fior min D deficiency has been defined by the [place] of [employer] and an Endocrine Society practice guideline as a level of serum 25-OH vitamin D less than 20 ng/mL (1,2). The Endocrine Society went on to further define vitamin D insufficiency as a level between 21 and 29 ng/mL (2). 1. IOM ([place] of [employer]). 2010. Dietary reference intakes for calcium and D. [place]: The National Academies Press. 2. Mac MF, Latrice NC, Rosa DAVILA, et al. Evaluation, treatment, and prevention of vitamin D deficiency: an Endocrine Society clinical practice guideline. JCEM. 2010; 96(7):1911-30. Performed By: #### V ITADLC #### [facility] Laboratory [address] [place] [address] Dr. Kiesha Monk T4 LABCORPon 11-27-2021 T4 [Mass/Vol] 6.9 ug/dL Normal 4.5-12.0 [facility] Comment on above: Performed By: #### T 4LC #### [facility] Laboratory [address] [place] [address] Dr. Kiesha Monk CBC AUTO DIFFon 11-26-2021 BASO # 0.0 103/ul Normal 0.0-0.1 [facility] Comment on above: Performed By: #### C BC #### [facility] Laboratory [address] [place] [address] Dr. Kiesha Monk Basophils/100 WBC (Bld) 0.5 % Normal 0.2-2.0 [facility] Comment on above: Performed By: #### C BC #### [facility] Laboratory [address] [place] [address] Dr. Kiesha Monk EO # 0.1 103/ul Normal 0.0-0.7 [facility] Comment on above: Performed By: #### C BC #### [facility] Laboratory [address] [place] [address] Dr. Kiesha Monk Eosinophils/100 WBC (Bld) 1.2 % Normal 0.9-7.0 [facility] Comment on above: Performed By: #### C BC #### [facility] Laboratory [address] [place] [address] Dr. Kiesha Monk Erythrocyte distribution width (RBC) [Ratio] 12.6 % Normal 11.0-15.0 [facility] Comment on above: Performed By: #### C BC #### [facility] Laboratory [address] [place] [address] Dr. Kiesha Monk Hematocrit (Bld) [Volume fraction] 40.8 % Normal 36.0-48.0 [facility] Comment on above: Performed By: #### C BC #### [facility] Laboratory [address] [place] [address] Dr. Kiesha Monk Hemoglobin (Bld) [Mass/Vol] 13.7 g/dL Normal 12.0-16.0 [facility] Comment on above: Performed By: #### C BC #### [facility] Laboratory [address] [place] [address] Dr. Kiesha Monk IG # 0.01 10e3/ul Normal 0.00-0.03 [facility] Comment on above: Performed By: #### C BC #### [facility] Laboratory [address] [place] [address] Dr. Kiesha Monk IG % 0.2 % Normal 0.0-0.5 [facility] Comment on above: Performed By: #### C BC #### [facility] Laboratory [address] [place] [address] Dr. Kiesha Monk LYMPH # 1.8 103/ul Normal 1.2-3.8 [facility] Comment on above: Performed By: #### C BC #### [facility] Laboratory [address] [place] [address] Dr. Kiesha Monk Lymphocytes/100 WBC (Bld) 31.3 % Normal 20.5-60.0 [facility] Comment on above: Performed By: #### C BC #### [facility] [address] [place] [address] Dr. Kiesha Monk MANUAL DIFF REQ NO Normal [facility] Comment on above: Performed By: #### C BC #### [facility] Laboratory [address] [address] [address] Kiesha Monk MCH (RBC) [Entitic mass] 31.6 pg Normal 26.7-34.0 [facility] Comment on above: Performed By: #### C BC #### [facility] [address] [address] [address] Kiesha Monk MCHC (RBC) [Mass/Vol] 33.6 g/dL Normal 29.9-35.2 [facility] Comment on above: Performed By: #### C BC #### [facility] [address] [place] [address] Dr. Kiesha Monk MCV (RBC) [Entitic vol] 94.2 fL Normal 81.0-99.0 [facility] Comment on above: Performed By: #### C BC #### [facility] Laboratory [address] [place] [address] Dr. Kiesha Monk MONO # 0.5 103/ul Normal 0.3-0.8 [facility] Comment on above: Performed By: #### C BC #### [facility] [address] [place] [address] Dr. Kiesha Monk Monocytes/100 WBC (Bld) 8.2 % Normal 1.7-12.0 [facility] Comment on above: Performed By: #### C BC #### [facility] [address] [place] [address] Dr. Kiesha Monk NEUT # 3.3 103/ul Normal 1.4-6.5 [facility] Comment on above: Performed By: #### C BC #### [facility] Laboratory [address] [place] [address] Dr. Kiesha Monk Neutrophils/100 WBC (Bld) 58.6 % Normal 43.0-75.0 [facility] Comment on above: Performed By: #### C BC #### [facility] [address] [place] [address] Dr. Kiesha Monk Platelet mean volume (Bld) [Entitic vol] 10.7 fL Normal 9.5-13.5 [facility] Comment on above: Performed By: #### C BC #### [facility] [address] [address] [address] Kiesha Monk PLT 210 103/ul Normal 150-450 [facility] Comment on above: Performed By: #### C BC #### [facility] [address] [address] [address] Kiesha Monk RBC 4.33 106/ul Normal 4.20-5.40 [facility] Comment on above: Performed By: #### C BC #### [facility] [address] [address] [address] Kiesha Monk WBC 5.7 103/ul Normal 4.0-11.0 [facility] Comment on above: Performed By: #### C BC #### [facility] Laboratory [address] [place] [address] Dr. Kiesha Monk FREE T3on 11-26-2021 FREE T3 2.65 pg/mlL Normal 2.18-3.98 [facility] Comment on above: Performed By: #### T SH, LIPID, CMP, FT3 #### [facility] [address] [address] [address] Kiesha Monk GLYCOHEMOGLOBIN A1Con 2021 ADA RECOMMENDATION SEE BELOW Normal [facility] Comment on above: Result Comment: ADA RECOMMENDED LIMIT 4.0 - 6.0 ADA THERAPEUTIC TARGET < 7.0 ACTION SUGGESTED > 7.0 Performed By: #### A 1C #### [facility] Laboratory [address] [place] [address] Dr. Kiesha Monk Glucose [Mass/Vol] 103 mg/dL Normal [facility] Comment on above: Performed By: #### A 1C #### [facility] [address] [place] [address] Dr. Kiesha Monk HbA1c (Bld) [Mass fraction] 5.2 % Normal 4.5-6.2 [facility] Comment on above: Performed By: #### A 1C #### [facility] [address] [place] [address] Dr. Kiesha Monk LIPID PROFILEon 11-26-2021 CHOL-HDL RATIO NORM SEE BELOW Normal [facility] Comment on above: Result Comment: 3.3 - 4.4 LOW RISK 4.4 - 7.1 AVERAGE RISK 7.1 - 11.0 MODERATE RISK >11.0 HIGH RISK Performed By: #### T SH, LIPID, CMP, FT3 #### [facility] [address] [place] [address] Dr. Kiesha Monk Cholesterol [Mass/Vol] 225 mg/dL Critically high <=200 [facility] Comment on above: Performed By: #### T SH, LIPID, CMP, FT3 #### [facility] [address] [place] [address] Dr. Kiesha Monk Cholesterol in HDL [Mass/Vol] 70 mg/dL Critically high 40-60 [facility] Comment on above: Performed By: #### T SH, LIPID, CMP, FT3 #### [facility] [address] [place] [address] Dr. Kiesha Monk Cholesterol in LDL [Mass/Vol] 140.4 mg/dL Normal [facility] Comment on above: Performed By: #### T SH, LIPID, CMP, FT3 #### [facility] [address] [place] [address] Dr. Kiesha Monk Cholesterol.total/C holesterol in HDL [Mass ratio] 3.2 {ratio} Normal [facility] Comment on above: Performed By: #### T SH, LIPID, CMP, FT3 #### [facility] [address] [place] [address] Dr. Kiesha oMnk HDL NORMAL > or = 60 mg/dl - LO W CARDIOVASCULAR RISK <40 mg/dl - HIGH CARDIOVASCULAR RISK Normal [facility] Comment on above: Performed By: #### T SH, LIPID, CMP, FT3 #### [facility] [address] [place] [address] Dr. Kiesha Monk LDL CALC NORMAL SEE BELOW Normal The [facility] Comment on above: Result Comment: <100 mg/dl OPTIMAL 100 - 129 mg/dl NEAR OR ABOVE OPTIMAL 130 - 159 mg/dl BORDERLINE HIGH 160 - 189 mg/dl HIGH >190 mg/dl VERY HIGH Performed By: #### T SH, LIPID, CMP, FT3 #### [facility] [address] [address] [address] Kiesha Monk Triglyceride [Mass/Vol] 73 mg/dL Normal <=150 [facility] Comment on above: Performed By: #### T SH, LIPID, CMP, FT3 #### [facility] [address] [address] [address] Kiesha Monk VLDL CALC 14.6 mg/dL Normal [facility] Comment on above: Performed By: #### T SH, LIPID, CMP, FT3 #### [facility] [address] [address] [address] Kiesha Monk PROF 14(COMP METB)on 022 Albumin [Mass/Vol] 3.6 g/dL Normal 3.4-5.0 [facility] Comment on above: Performed By: #### T SH, LIPID, CMP, FT3 #### [facility] [address] [address] [address] Kiesha Monk Albumin/Globulin [Mass ratio] 1.0 {ratio} Normal [facility] Comment on above: Performed By: #### T SH, LIPID, CMP, FT3 #### [facility] [address] [place] [address] Dr. Kiesha Monk ALP [Catalytic activity/Vol] 63 U/L Normal 46-116 [facility] Comment on above: Performed By: #### T SH, LIPID, CMP, FT3 #### [facility] [address] [address] [address] Kiesha Monk ALT [Catalytic activity/Vol] 23 U/L Normal 14-59 [facility] Comment on above: Performed By: #### T SH, LIPID, CMP, FT3 #### [facility] [address] [place] [address] Dr. Kiesha Monk Anion gap [Moles/Vol] 10.4 mmol/L Normal [facility] Comment on above: Performed By: #### T SH, LIPID, CMP, FT3 #### [facility] [address] [place] [address] Dr. Kiesha Monk AST [Catalytic activity/Vol] 24 U/L Normal 15-37 [facility] Comment on above: Performed By: #### T SH, LIPID, CMP, FT3 #### [facility] [address] [place] [address] Dr. Kiesha Monk Bilirubin [Mass/Vol] 0.5 mg/dL Normal 0.2-1.0 [facility] Comment on above: Performed By: #### T SH, LIPID, CMP, FT3 #### [facility] [address] [place] [address] Dr. Kiesha Monk Calcium [Mass/Vol] 9.1 mg/dL Normal 8.5-10.[address] [facility] Comment on above: Performed By: #### T SH, LIPID, CMP, FT3 #### [facility] [address] [place] [address] Dr. Kiesha Monk Chloride [Moles/Vol] 103 mmol/L Normal 98-107 [facility] Comment on above: Performed By: #### T SH, LIPID, CMP, FT3 #### [facility] [address] [place] [address] Dr. Kiesha Monk CO2 [Moles/Vol] 29.8 mmol/L Normal 21.0-32.0 [facility] Comment on above: Performed By: #### T SH, LIPID, CMP, FT3 #### [facility] [address] [place] [address] Dr. Kiesha Monk Creatinine [Mass/Vol] 0.81 mg/dL Normal 0.55-1.02 [facility] Comment on above: Performed By: #### T SH, LIPID, CMP, FT3 #### [facility] [address] [place] [address] Dr. Kiesha Monk EGFR-AF [place]LANDER >60 Normal >=60 [facility] Comment on above: Performed By: #### T SH, LIPID, CMP, FT3 #### [facility] [address] [place] [address] Dr. Kiesha Monk EGFR-NON AF [place]ER >60 Normal >=60 [facility] Comment on above: Performed By: #### T SH, LIPID, CMP, FT3 #### [facility] [address] [address] [address] Kiesha Monk Globulin (S) [Mass/Vol] 3.5 g/dL Normal [facility] Comment on above: Performed By: #### T SH, LIPID, CMP, FT3 #### [facility] [address] [place] [address] Dr. Kiesha Monk Glucose [Mass/Vol] 96 mg/dL Normal 74-[address] [facility] Comment on above: Performed By: #### T SH, LIPID, CMP, FT3 #### [facility] [address] [address] [address] Kiesha Monk Potassium [Moles/Vol] 4.2 mmol/L Normal 3.5-5.1 [facility] Comment on above: Performed By: #### T SH, LIPID, CMP, FT3 #### [facility] [address] [place] [address] Dr. Kiesha Monk Protein [Mass/Vol] 7.1 g/dL Normal 6.4-8.[address] [facility] Comment on above: Performed By: #### T SH, LIPID, CMP, FT3 #### [facility] [address] [place] [address] Dr. Kiesha Monk Sodium [Moles/Vol] 139 mmol/L Normal 136-[address] [facility] Comment on above: Performed By: #### T SH, LIPID, CMP, FT3 #### [facility] [address] [place] [address] Dr. Kiesha Monk Urea nitrogen [Mass/Vol] 13.0 mg/dL Normal 7.0-18.0 [facility] Comment on above: Performed By: #### T SH, LIPID, CMP, FT3 #### [facility] [address] [place] [address] Dr. Kiesha Monk Urea nitrogen/Creatinine [Mass ratio] 16.0 mg/mg Normal [facility] Comment on above: Performed By: #### T SH, LIPID, CMP, FT3 #### [facility] [address] [address] [address] Kiesha Monk TSHon 11-26-2021 TSH 2.116 uIU/mL Normal 0.358-3.740 [facility] Comment on above: Performed By: #### T SH, LIPID, CMP, FT3 #### [facility] Laboratory [address] [address] [address] Kiesha Monk ASYMPTOMATIC COVID-19 ANTIGE Non 10-11-2021 EUA Statement SEE BELOW Normal [facility] Comment on above: Result Comment: This [...] revoked sooner. Performed By: #### C VDAGA ####[facility] [id number] [address]Dr. Kiesha Mokn SARS-CoV-2 (COVID-19) RNA DEION+probe Ql (Unsp spec) Positive Critically abnormal NEGATIVE [facility] Comment on above: Result Comment: SARS -CoV-2 antigen present; does not rule out coinfection with other pathogens. Performed By: #### C VDAGA ####[facility] [id number] [id number]. Kiesha Monk Covid-19 PCR (CVDTB)on 09-17 SARS-CoV-2 (COVID-19) RNA DEION+probe Ql (Unsp spec) Detected Critically abnormal NOT DETECTED [facility] Comment on above: Result Comment: This test is not yet approved or cleared by the [place] FDA. When there are no FDA-approved or cleared tests available, and other criteria are met, FDA can make tests available under an emergency access mechanism called an Emergency Use Authorization (EUA). The EUA for this test is supported by the Electric Power Line Repairer of Health and Human Service's declaration that [...] longer be used). Performed By: #### C [facility] #### [facility] [address] [address] [address] Kiesha Monk Provider Letteron 01-04-2021 Provider Letter January 04, 2021 January 04, 2021 DELANEY FRASER [address] [place] [address] DELANEY FRASER 1975 Dear Delaney_ , We have been trying to reach you with no success. It is important that you return our call regarding your referral from Dr. Jacek Cuadra upon receiving this letter. Also, at the time of your call, please provide us with your current information. Thank you for your prompt attention to this matter. Sincerely, Dr. Joce Baird General Surgery office [phone] [facility] Physician Referralon 021 Physician Referral [phone] [id number] [facility] CNOVSPon 12-10-2018 CNOVS Visit (SP) Office ([place]) DELANEY FRASER ([id number]) 1975 F Date Time Provider Department 12/10/18 2:45 PM HENRIK CONDE MD During your visit today, we recorded the following information about you: Temperature Pulse Respiration Blood pressure 98 degrees 90/minute 18/minute 150/79 Weight Height Last Period 71.5 kg 1.682 m 11/19/18 Henrik Conde MD 12/10/2018 6:06 PM Signed PATIENT NAME: Delaney Fraser CLINIC NO.: [id number] ATTENDING PHYSICIAN: Henrik Conde MD DATE OF SERVICE: December 10, 2018 This document has been created with the use of voice recognition technology. It may contain inaccuracies, misspellings, inaccurate syntax or inappropriate word context that escaped review. Dear MARY Wheeler [address] [facility] [address] [facility] [address] thank you for referring Miss Delaney Fraser [...] file Gets together: Not on file Attends buddhist service: Not on file Active member of [...] 12/10/2018 1.87 1.00 - 4.00 k/uL Final Gilliam% Date Value Ref Range Status 12/10/2018 7.5 % Final Abs Gilliam Date Value Ref Range Status 12/10/2018 0.44 [...] number below. Henrik Conde M.D. Hematology/Medical Oncology [facility] Joseph [phone] CC: Benito Hodges MD - (Inactive), In Basket (Inactive) - User (Inactive) [address] [place] [address] (Ph) [phone] (Fax Referring Provider: MARY MORFIN [[id number]] Allergies As of Date: 12/10/2018 Noted Allergy Reaction SULFAMETHOXAZOLE 12/06/2018 16 - Unknown TRIMETHOPRIM 12/06/2018 16 - Unknown Date Reviewed: 12/10/2018 Reviewed by: Shaina Stahl - Fully Assessed Reason for Visit: Leukopenia [835] Cmt: new patient consult Primary Visit Diagnosis:Leukopenia, unspecified type [D72.819] Order(s):CBC + DIFF (FOR REMOTE [facility] USE) [SQRCBCDF] Order #: [id number] FUTURE COMP METABOLIC PANEL [SQCMP] Order #: [id number] FUTURE IRON + TIBC [SQIRON] Order #: [id number] FUTURE FERRITIN BLD [SQFERR] Order #: [id number] FUTURE VITAMIN B12 BLOOD [SQB12] Order #: [id number] FUTURE FOLATE SERUM [SQSERFOL] Order #: [id number] FUTURE IMMUNOGLOBULINS YECENIA [SQSERIMM] Order #: [id number] FUTURE Disposition: Return if symptoms worsen or fail to improve. Follow-up and Disposition History Recorded Prescriptions as of 12/10/2018 Sig: MULTIVITAMIN CAPSULE Take 1 capsule by mouth once * CYANOCOBALAMIN (VIT B-12) 1,0* Take 1,000 mcg by mouth once * Problem List As Of Date: 12/10/2018 (None) Encounter Status:Closed by HENRIK CONDE MD on 12/10/18 Normal [facility] Comp Metabolic Panelon 12-10 Albumin [Mass/Vol] 4.5 g/dL Normal 3.9-4.9 [facility] ALP [Catalytic activity/Vol] 52 U/L Normal 34-123 [facility] ALT [Catalytic activity/Vol] 11 U/L Normal 7-38 [facility] Anion gap [Moles/Vol] 10 mmol/L Normal 9-18 [facility] AST [Catalytic activity/Vol] 19 U/L Normal 13-35 [facility] Bilirubin [Mass/Vol] 0.3 mg/dL Normal 0.2-1.3 [facility] Calcium [Mass/Vol] 9.1 mg/dL Normal 8.5-10.2 [facility] Chloride [Moles/Vol] 103 mmol/L Normal 97-105 [facility] CO2 [Moles/Vol] 26 mmol/L Normal 22-30 [facility] Creatinine [Mass/Vol] 0.80 mg/dL Normal 0.58-0.96 [facility] eGFR- Amer. >60 Normal [facility] GFR/1.73 sq M predicted among non-blacks MDRD (S/P/Bld) [Vol rate/Area] mL/min/{1.73_m2} Normal [facility] Comment on above: Result Comment: eGFR (Estimated [...] High 74-99 [facility] Comment on above: Result Comment: The [place] Diabetes [employer] (ADA) provides guidance for cutoff [...] Standards of Medical Care in Diabetes 2016, [place] [employer]. Diabetes Care. 2016.39(Suppl 1). Potassium [Moles/Vol] 3.8 mmol/L Normal 3.7-5.1 [facility] Protein [Mass/Vol] 7.0 g/dL Normal 6.3-8.0 [facility] Sodium [Moles/Vol] 139 mmol/L Normal 136-144 [facility] Urea nitrogen [Mass/Vol] 13 mg/dL Normal 7-21 [facility] Ferritinon 12-10-2018 Ferritin [Mass/Vol] 35.1 ng/mL Normal 14.7-205.1 [facility] Comment on above: Performed By: #### I KAISER, FERR, B12, SERFOL, SERIMM #### [address] [address] Folate, Serumon 12-10-2018 Folate [Mass/Vol] 13.4 ng/mL Normal >4.7 [facility] Comment on above: Performed By: #### I KAISER, FERR, B12, SERFOL, SERIMM #### [address] [address] Immunoglobulins GAMon 2018 IgA [Mass/Vol] 190 mg/dL Normal 78-391 [facility] Comment on above: Performed By: #### I KAISER, FERR, B12, SERFOL, SERIMM #### [address] [address] IgG [Mass/Vol] 1290 mg/dL Normal 717-1411 [facility] Comment on above: Performed By: #### I KAISER, FERR, B12, SERFOL, SERIMM #### [address] [place] [address] IgM [Mass/Vol] 145 mg/dL Normal 53-334 [facility] Comment on above: Performed By: #### I KAISER, FERR, B12, SERFOL, SERIMM #### [address] [address] Iron and TIBCon 12-10-2018 Iron [Mass/Vol] 125 ug/dL Normal 41-186 [facility] Comment on above: Performed By: #### I KAISER, FERR, B12, SERFOL, SERIMM #### [address] [phone] TIBC 344 ug/dL Normal 232-386 [facility] Comment on above: Performed By: #### I KAISER, FERR, B12, SERFOL, SERIMM #### [facility] [address] [place], [place] [address] Transferrin Saturatn 36 % Normal 15-57 [facility] Comment on above: Performed By: #### I KAISER, FERR, B12, SERFOL, SERIMM #### [facility] [address] [place], [place] [address] PROGRESSon 12-10-2018 PROGRESS HNO ID: [id number] Author: Henrik Reyez) Amaay Service: ? Author Type: Physician Type: Progress Notes Filed: 12/10/2018 6:06 PM Note Text: PATIENT NAME: Delaney Fraser [facility] NO[facility] [id number] ATTENDING PHYSICIAN: Henrik Conde MD DATE OF SERVICE: December 10, 2018 This document has been created with the use of voice recognition technology. It may contain inaccuracies, misspellings, inaccurate syntax or inappropriate word context that escaped review. Dear Dr. MORFIN, MARY GRAY [address] [facility] [address] [facility] [address] thank you for referring Miss Delaney Fraser [...] file Gets together: Not on file Attends buddhist service: Not on file Active member of [...] 12/10/2018 1.87 1.00 - 4.00 k/uL Final Gilliam% Date Value Ref Range Status 12/10/2018 7.5 % Final Abs Gilliam Date Value Ref Range Status 12/10/2018 0.44 [...] number below. Henrik Conde M.D. Hematology/Medical Oncology [address] [address] [phone] CC: Benito Hodges MD - (Inactive), In Basket (Inactive) - User (Inactive) [address] [facility] [address] (Ph) [phone] (Fax Normal [facility] Remote CBCDIF (for [facility] use o nly)on 12-10-2018 Abs Baso <0.03 Normal 0.00-0.10 [facility] Abs Gilliam 0.44 k/uL Normal 0.00-0.86 [facility] Abs Neut 3.51 k/uL Normal 1.45-7.50 [facility] Basophils/100 WBC (Bld) 0.3 % Normal [facility] Eosinophils (Bld) [#/Vol] 0.05 10*3/uL Normal 0.00-0.45 [facility] Eosinophils/100 WBC (Bld) 0.8 % Normal [facility] Erythrocyte distribution width (RBC) [Ratio] 12.3 % Normal 11.5-15.0 [facility] Hematocrit (Bld) [Volume fraction] 39.5 % Normal 36.0-46.0 [facility] Hemoglobin (Bld) [Mass/Vol] 13.5 g/dL Normal 11.5-15.5 [facility] Lymphocytes (Bld) [#/Vol] 1.87 10*3/uL Normal 1.00-4.00 [facility] Lymphocytes/100 WBC (Bld) 31.7 % Normal [facility] MCH (RBC) [Entitic mass] 32.2 pG Normal 26.0-34.0 [facility] MCHC (RBC) [Mass/Vol] 34.2 g/dL Normal 30.5-36.0 [facility] MCV (RBC) [Entitic vol] 94.3 fL Normal 80.0-100.0 [facility] Monocytes/100 WBC (Bld) 7.5 % Normal [facility] Neutrophils/100 WBC (Bld) 59.7 % Normal [facility] Platelet mean volume (Bld) [Entitic vol] 11.2 fL Normal 9.0-12.7 [facility] Platelets (Bld) [#/Vol] 194 10*3/uL Normal 150-400 [facility] RBC (Bld) [#/Vol] 4.19 10*6/uL Normal 3.90-5.20 [facility] WBC (Bld) [#/Vol] 5.89 10*3/uL Normal 3.70-11.00 [facility] Vitamin B12on 12-10-2018 Cobalamin (Vitamin B12) [Mass/Vol] 579 pg/mL Normal 232-1245 [facility] Comment on above: Performed By: #### I KAISER, FERR, B12, SERFOL, SERIMM #### [facility] [address] [place] [address] Vital Signs Date Time Vital Sign Value Performing Clinician Carmine tate 12-19-2024 09:41-0400 Body mass index (BMI) [Ratio] 26.95 kg/m2 ElizabethChupaMobile DO Work Phone: [facility] 12-19-2024 09:41-0400 Body weight 75.75 kg Unocoin DO Work Phone: [facility] 12-19-2024 09:41-0400 Diastolic blood pressure 84 mm[Hg] Unocoin DO Work Phone: [facility] 12-19-2024 09:41-0400 Systolic blood pressure 128 mm[Hg] Elizabeth Promolta DO Work Phone: [facility] 12-05-2023 11:40-0400 Body height 167.6 cm Unocoin DO Work Phone: [facility] 12-05-2023 11:40-0400 Body mass index (BMI) [Ratio] 25.82 kg/m2 Elizabeth Rinkes DO Work Phone: [facility] 12-05-2023 11:40-0400 Body weight 72.58 kg Elizabeth Rinkes DO Work Phone: [facility] 12-05-2023 11:40-0400 Diastolic blood pressure 80 mm[Hg] Elizabeth Rinkes DO Work Phone: [facility] 12-05-2023 11:40-0400 Systolic blood pressure 130 mm[Hg] Elizabeth Rinkes DO Work Phone: [facility] Healthcare Encounters Encounter Date Encounter Type Care Provider Facility Start: 12-19-2024 End: 12-19-2024 Bamboo flowsheet Elizabeth E Rinkes DO Work Phone: [facility] Joseph ASHER Start: 12-19-2024 End: 12-19-2024 Bamboo flowsheet Elizabeth E Rinkes DO Work Phone: [facility] Joseph ASHER Start: 12-19-2024 End: 12-19-2024 Patient encounter status Elizabeth E Rinkes DO Work Phone: [facility] Healthcare Work Phone: Start: 12-19-2024 End: 12-19-2024 Periodic preventive med est patient 40-64yrs Elizabeth E Rinkes DO Work Phone: [facility] Joseph ASHER Comment on above: Encounter for gyneco logical examination without abnormal finding (Primary Dx); Screening for malignant neoplasm of cervix; Encounter for screening mammogram for breast cancer; Oral contraceptive pill surveillance; Chronic vulvitis Start: 12-19-2024 End: 12-19-2024 ambulatory ELIZABETH E RINKES Not Available Start: 12-05-2023 End: 12-05-2023 Bamboo flowsheet Elizabeth E Rinkes DO Work Phone: [facility] Start: 12-05-2023 End: 12-05-2023 Bamboo flowsheet Elizabeth E Rinkes DO Work Phone: [facility] Start: 12-05-2023 End: 12-05-2023 Patient encounter status Elizabeth Gomez DO Work Phone: [facility] Healthcare Work Phone: Start: 12-05-2023 End: 12-05-2023 Periodic preventive med est patient 40-64yrs Elizabeth Gomez DO Work Phone: [facility] Comment on above: Encounter for gyneco logical examination without abnormal finding (Primary Dx); Screening for malignant neoplasm of cervix; Encounter for screening mammogram for breast cancer; Oral contraceptive pill surveillance Start: 10-19-2022 ambulatory Ms. Odalys Quintero Faci lity:[id number] Start: 05-05-2022 Rx Renewal Odalys Huerta [employer] Work Phone: [facility] [address] Work Phone: Start: 02-25-2022 End: 02-26-2022 ambulatory ELIZABETH GOMEZ Facility:H1 Start: 12-03-2021 Encounter for genera l adult medical examination without abnormal findings DR MASSIMO READ [facility] Start: 11-26-2021 End: 11-27-[address] MASSIMO READ Facility:[facility]1 Start: 11-26-2021 End: 11-27-2021 Encounter for general adult medical examination without abnormal findings DR MASSIMO READ Facility:[facility]1 Start: 10-11-2021 End: 10-11-2021 ambulatory GONZALEZ VALLADARES Facility:H1 Start: 2021 End: 2021 ambulatory FRANCIA FRANCO Facility:H1 Start: 04-05-2021 Rx Renewal Odalys Huerta [employer] Work Phone: [facility] [address] Work Phone: Start: 03-24-2021 Office outpatient vi sit 25 minutes Odalys Quintero [employer] Work Phone: [facility] Work Phone: Start: 03-23-2021 End: 03-23-2021 ambulatory ANGELICA LOWERY Facility:H1 Start: 03-04-2021 AUDIT Odalys Huerta [employer] Work Phone: [facility] Work Phone: Start: 08-21-2017 End: 08-22-2017 Ambulatory DEFAULT PHYSICIAN Facility:[facility] Procedures Date Procedure Procedure Detail Performing Clinician Start: 12-22-2023 Mammography Elizabeth carlos DO Work Phone: Start: 2022 Microscopic observat ion [Identifier] in Cervix by Cyto stain Elizabeth Gomez DO Work Phone: Start: 08-26-2021 Mammography Elizabeth carlos DO Work Phone: Plan of Treatment Date Care Activity Detail Author Start: 10-06-2027 Screening for malign ant neoplasm of cervix [facility] Start: 2025 Screening for malign ant neoplasm of cervix Pap Smear [facility] Start: 12-21-2024 Screening for malign ant neoplasm of breast Mammogram [facility] Start: 12-19-2024 End: 12-19-2024 Patient encounter procedure 12/19/2024 9:45 AM EDT Office Visit SANDOVAL ASHER [address] [place] [address] Elizabeth Gomez DO [address] [place] [address] Encounter for gynecological examination without abnormal finding; Screening for malignant neoplasm of cervix; Encounter for screening mammogram for breast cancer; Oral contraceptive pill surveillance [facility] Joseph ASHER Comment on above: Encounter for gyneco logical examination without abnormal finding; Screening for malignant neoplasm of cervix; Encounter for screening mammogram for breast cancer; Oral contraceptive pill surveillance Start: 11-18-2024 Influenza vaccination Influenza Vacc ine (#1) [facility] Start: 12-05-2023 End: 12-05-2023 Patient encounter procedure 12/05/2023 11:30 AM EDT Office Visit [facility] [address] [place] [address] Elizabeth Gomez DO [address] [place] [address] Encounter for gynecological examination without abnormal finding; Screening for malignant neoplasm of cervix; Encounter for screening mammogram for breast cancer; Encounter for surveillance of contraceptive pills [facility] Comment on above: Encounter for gyneco logical examination without abnormal finding; Screening for malignant neoplasm of cervix; Encounter for screening mammogram for breast cancer; Encounter for surveillance of contraceptive pills Start: 11-19-2023 Influenza vaccination Influenza Vacc ine (#1) [facility] Start: 08-26-2022 Screening for malign ant neoplasm of breast Mammogram [facility] Start: 03-23-2021 VANCE, Provider : Odalys Quintero, Status: Pen, Time: 2:00 PM VANCE, Provider: Odalys Quintero, Status: Pen, Time: 2:00 PM [facility] Work Phone: Start: 1975 Screening for malign ant neoplasm of colon [facility] DBT Breast - bilater al screening Bilateral screening mammogram with tomosynthesis Imaging Routine Encounter for screening mammogram for breast cancer Ordered: 12/05/2023 [facility] Comment on above: Ordered: 12/05/2023 DBT Breast - bilater al screening Bilateral screening mammogram with tomosynthesis Imaging Routine Encounter for screening mammogram for breast cancer Ordered: 12/19/2024 [facility] Comment on above: Ordered: 12/19/2024 IGP, RFX APTIMA HPV ASCU IGP, RF X APTIMA HPV [facility]U Lab Routine Screening for malignant neoplasm of cervix Ordered: 12/19/2024 [facility] Work Phone: Comment on above: Ordered: 12/19/2024 SENDOUT TEST MISCELLANEOUS [facility] SENDOUT TEST MISCELLANEOUS [facility] Lab Routine Screening for malignant neoplasm of cervix Ordered: 12/05/2023 [facility] Work Phone: Comment on above: Ordered: 12/05/2023 Immunizations Immunization Date Immunization Notes Care Provider Fa cility 01-10-2024 influenza virus vacc ine, unspecified formulation Elizabeth Gomez DO Work Phone: [facility] 01-03-2020 influenza virus vacc ine, unspecified formulation Elizabeth Gomez DO Work Phone: [facility] Healthcare Payers Date Payer Category Payer [facility] er [id number] 2024 Unknown [id number] 2022 Unknown 2019 Unknown [id number] 1975 Unknown [id number] 593 1975 Unknown [id number] 593 1975 Unknown [id number] 593 1975 Unknown [id number] 593 1975 Unknown [id number]. 593 1975 Unknown [id number] 356 1975 Unknown [id number] 1259 Unknown [id number] Social History Date Type Detail Facility Start: 2022 Tobacco smoking status AZIS Never sm oked tobacco [facility] Start: 11-30-2023 End: 12-19-2024 Alcoholic beverage intake Current drinker of alcohol (finding) [facility] Start: 01-18-2023 End: 12-17-2024 [facility] of [facility] Start: 01-18-2023 End: 12-17-2024 Alcohol Use Disorder Identification Test - Consumption [...] year,Caffeine intake: 1-2 cups per day coffee [facility] Start: 1975 Sex assigned at Not on file [facility] History of Present illness Narrative 12-19-2024 Elizabeth Gomez, DO - 12/19/2024 9:45 AM EDT Note Date & Type Note Facility 12-19-2024 History of Presen t illness Narrative Images from the original note were not included. Elizabeth Gomez D.O. Obstetrics and Gynecology Patient: Delaney Fraser : 1975 (49 y.o.) Yearly Wellness Exam Date: 12/19/2024 Reason for Visit - Chief Complaint Patient presents with Gynecologic Exam Pt c/o vulvar dryness/redness/itching. Denies bowel/bladder/breast concerns. LMP 11/28/24 menses regular with OCP. Visit Vitals BP 128/84 Wt 167 lb LMP 11/28/2024 BMI 26.95 kg/m Smoking Status Never BSA 1.88 m Allergies Allergen Reactions Sulfamethoxazole Other Reaction(s): [...] smear 12/05/23 wnl, Mammogram 12/22/23 wnl @ [facility] Review of Systems - General: Chills denies. [...] Review Audit Reviewed by Teresa Brown MA (Hazardous Materials Waste Technician) on 12/19/24 at 0940 Medication Order Taking? Sig Documenting Provider Last Dose Status Discontinued 12/19/24 0940 ALPRAZolam (Xanax) 0.25 MG tablet [id number] 1 (one) time each day at the same time. Historical ProviderMD Active clobetasol (Temovate) 0.05 % ointment [id number] Apply thin light layer to affected tissues externally twice daily x 14 days, daily x 7 days, then every other day x 7 days Elizabeth Gomez, DO Active cyanocobalamin (Vitamin B-12) 1000 MCG tablet [id number] Take 1,000 mcg by mouth in the morning. Historical ProviderMD Active DULoxetine (Cymbalta) [address] capsule [id number] Take 60 mg by mouth in the morning. Historical ProviderMD Active Munira 0.25-35 MG-MCG tablet [id number] TAKE 1 TABLET BY MOUTH EVERY DAY Elizabeth Gomez DO Active MULTIPLE VITAMIN IV [id number] 1 (one) time each day at the same time. Historical ProviderMD Active Past Medical History: Diagnosis Date Anxiety Hx of abnormal cervical Pap smear POTS (postural orthostatic tachycardia syndrome) Past Surgical History: Procedure Laterality Date COLPOSCOPY 2011 VAGINAL DELIVERY x2 Family History Problem Relation [...] Patient did have biopsy in 01/2023- consistent with dermatitis- possibly psoriasis. Does appear to be psoriasis. [...] 0.05 % ointment documented in this encounter [facility] History of Present illness Narrative 12-05-2023 [...] 1 Term Obstetric Comments Pap smear 10/05/22 wn, Mammogram 02/25/22 [facility] @ [facility] Review of Systems - General: Chills denies. [...] Review Audit Reviewed by Teresa Brown MA (Hazardous Materials Waste Technician) on 01/19/23 at 1617 Medication Order Taking? Sig Documenting Provider Last Dose Status ALPRAZolam (Xanax) 0.25 MG tablet [id number] 1 (one) time each day at the same time. Historical Provider, Active clobetasol (Temovate) 0.05 % ointment [id number] Apply thin light layer to affected tissues externally twice daily x 14 days, daily x 7 days, then every other day x 7 days Elizabeth Gomez DO Active cyanocobalamin (Vitamin B-12) 1000 MCG tablet [id number] Take 1,000 mcg by mouth in the morning. Historical Provider, Active DULoxetine (Cymbalta) [address] capsule [id number] Take 60 mg by mouth in the morning. Historical Provider, Active MULTIPLE VITAMIN IV [id number] 1 (one) time each day at the same time. Historical Provider, Active norgestimate-ethinyl estradiol (Munira) 0.25-35 MG-MCG tablet [id number] Take 1 tablet by mouth in the [...] mammogram with tomosynthesis documented in this encounter [facility] Chief complaint Narrative - Reported Note Date & Type Note Facility Chief complaint Narrative - Reported POTS patient being assessed today for follow-up of POTS.Neurologic Evaluation.An interactive audio and video telecommunication system which permits real time communications between the patient (at the originating site) and provider (at the distant site) was utilized to provide this telehealth service. [id number] B 101 Work Phone: Evaluation note Note Date & Type Note Facility Evaluation note Diagnosis Encounter for gynecological examination without abnormal finding- Primary Screening for malignant neoplasm of cervix Screening for malignant neoplasm of the cervix Encounter for screening mammogram for breast cancer Oral contraceptive pill surveillance documented in this encounter [facility] Evaluation note Note Date & Type Note Facility Evaluation note Diagnosis Encounter for gynecological examination without abnormal finding- Primary Screening for malignant neoplasm of cervix Screening for malignant neoplasm of the cervix Encounter for screening mammogram for breast cancer Oral contraceptive pill surveillance Chronic vulvitis Unspecified vaginitis and vulvovaginitis documented in this encounter [facility] History [...] not corrected for typographical or grammatical errors PV-Mlbhywkse-Pezplsln B 101 Work Phone: Summary Purpose Family [...] section and content) DATE CREATED AUTHOR 09/05/2017 [facility] DATE CREATED AUTHOR AUTHOR'S ORGANIZ ATION 12/22/2018 [facility] DATE CREATED AUTHOR AUTHOR'S ORGANIZ ATION 01/05/2021 [facility] DATE CREATED AUTHOR AUTHOR'S ORGANIZ ATION 03/01/2022 [facility] DATE CREATED AUTHOR AUTHOR'S ORGANIZ ATION 10/20/2022 [facility] DATE CREATED AUTHOR AUTHOR'S ORGANIZ ATION 10/20/2022 [facility] DATE CREATED AUTHOR AUTHOR'S ORGANIZ ATION 12/23/2024 [facility] EPIC Care Teams (unrecognized sec tion and content) Transfer And Line Up Worker Relationship Specialty Start Date End Date Massimo Read MD [address] [facility][1] [place] [address] PCP - General Family Medicine 10/05/22 Transfer And Line Up Worker Relationship Specialty Start Date End Date Massimo Read MD [address] [place] [address] PCP - General Family Medicine 10/05/22 Transfer And Line Up Worker Relationship Specialty Start Date End Date Massimo Read MD PCP - General Family Medicine 10/05/22 Transfer And Line Up Worker Relationship Specialty Start Date End Date Massimo Read MD PCP - General Family Medicine 10/05/22 Reason for Visit (unrecogniz ed section and content) Reason Comments Gynecologic Exam Pt stopped OCP JulyAugust 2023. Pt would like to discuss getting back on OCP. LMP 11/23/23. Menses have been irregular. Denies bowel/bladder concerns. Reason Comments Gynecologic Exam Pt c/o vulvar drynes s/redness/itching. Denies bowel/bladder/breast concerns. LMP 11/28/24 menses regular with OCP. FOR RECORDS PERTAINING TO PATIENTS WHO ARE [...] BE BASED ON THE PRIMARY CLINICAL RECORDS. [facility]. provides no warranty or guarantee of the accuracy or completeness of information in this document.
--- OUTSIDE RECORDS SUMMARY | 2024-12-30 07:28 | XMS_ITS | Clinical Summary ---
Author Organization [facility] Address [address] [place] [address] Phone Care Team Providers Care Ocean Transportation Intermediary Name Role Phone Unavailable Primary Care Provider Unavailabl e Social History Tobacco Use Types Packs/Day Years Used Date Smoking Tobacco: Never Assessed Comments Unknown Sex and Gender Information Value Date Recorded Sex Assigned at Not on file Legal Sex Female 8:32 PM EST Gender Identity Not on file Sexual Orientation Not on file Last Filed Vital Signs Vital Sign Reading Time Taken Comments Blood Pressure 159/93 06/12/2020 9:24 AM EDT Pulse 94 06/12/2020 9:24 AM EDT Temperature - - Respiratory Rate - - Oxygen Saturation - - Inhaled Oxygen Concentration - - Weight 72.6 kg (160 lb) 06/12/2020 9:24 AM EDT Height 175.3 cm (5' 9 ) 06/12/2020 9:24 AM EDT Body Mass Index 23.63 06/12/2020 9:24 AM EDT Plan of Treatment Health Maintenance Due Date Last Done Comments CT Colonography 1975 Colonoscopy 1975 Colorectal Cancer Screening 1975 FIT-DNA (Cologuard) 1975 FIT 1975 HIV Screening 1975 Lipid Panel 1975 Sigmoidoscopy 1975 MMR Vaccines (1 of 1 - Standard series) 10/04/1976 Hepatitis C Screening 10/04/1993 Hepatitis B Vaccines (1 of 3 - 19+ 3-dose series) 10/04/1994 HPV/Cotest 10/04/1996 DTaP/Tdap/Td Vaccines (1 - Tdap) 10/04/1997 Mammogram 2015 Yearly Adult Physical 11/25/2023 11/23/2022 , 08/26/2021, 05/27/2020, Additional history exists COVID-19 Vaccine ( season) 2024 Influenza Vaccine (#1) 2024 Zoster Vaccines (1 of 2) 10/04/2025 Cervical Cancer Screening 2025 Pap Smear 2025 2022, 05/18, 04/18/2019 HIB Vaccines Aged Out No longer eligi ble based on patient's age to complete this topic HPV Vaccines Aged Out No longer eligi ble based on patient's age to complete this topic Hepatitis A Vaccines Aged Out No long er eligible based on patient's age to complete this topic IPV Vaccines Aged Out No longer eligi ble based on patient's age to complete this topic Meningococcal Vaccine Aged Out No shade carmencita eligible based on patient's age to complete this topic Pneumococcal Vaccine: Pediatrics and At-Risk Adult Patients Aged Out No longer eligible based on patient's age to complete this topic Rotavirus Vaccines Aged Out No longer eligible based on patient's age to complete this topic
--- OUTSIDE RECORDS SUMMARY | 2024-12-30 07:28 | XMS_ITS | Encounter Summary ---
Author Organization [facility] Address [address] [place] [address] Care Team Providers Care Fill Plant Operator Name Role Phone Immanuel Read MD Primary Care Provider [phone] Encounter Details Date Type Department Care Team (Late Contact Info) Description 2022 Abstract [facility] [place] [facility] [address] [place] [phone] Elizabeth Gomez DO [address] [place] [address] Social History Tobacco Use Types Packs/Day Years Used Date Smoking Tobacco: Never Tobacco Cessation:Counseling Given: Not Answered Alcohol Use Standard Drinks/Week Comments Yes 0 (1 standard drink = 0.6 oz pure alcohol) 1-2 drinks 2-4x a month in the past year,Caffeine intake: 1-2 cups per day coffee Comments Unknown Sex and Gender Information Value Date Recorded Sex Assigned at Not on file Legal Sex Female 6:34 PM EDT Gender Identity Not on file Sexual Orientation Not on file documented as of this encounter Plan of Treatment Upcoming Encounters Date Type Department Care Team (Late st Contact Info) Description 01/01/2026 9:45 AM EDT Office Visit BRENDAJasmin [place] ASHER [address] [place] [phone] Elizabeth Gomez DO [address] [place] [address] documented as of this encounter Visit Diagnoses Not on filedocumented in this encounter Care Teams Fill Plant Operator Relationship Specialty Start Date End Date Immanuel Read MD PCP - General Family Medicine 10/05/22 documented as of this encounter
--- OUTSIDE RECORDS SUMMARY | 2024-12-30 07:28 | XMS_ITS | Clinical Summary ---
Author Organization [facility] Address [address] [place], [place] [address] Care Team Providers Care Catering Attendant Name Role Phone Benito Hodges MD Primary Care Provider [phone] Allergies Active Allergy Reactions Criticality Noted Date Comments Sulfamethoxazole Unknown 12/06/2018 Trimethoprim Unknown 12/06/2018 Medications Multivitamin capsule Take 1 capsule by mouth once daily. Active cyanocobalamin (VITAMIN B-12) 1,000 mcg tab Take 1,000 mcg by mouth once daily. Active Family History Medical History Relation Comments Cancer Father Cancer Maternal Grandmother Relation Status Comments Father Alive Maternal Grandmother Mother Alive Social History Tobacco Use Types Packs/Day Years Used Date Smoking Tobacco: Never Smokeless Tobacco: Never Alcohol Use Standard Drinks/Week Comments Yes 0 (1 standard drink = 0.6 oz pur e alcohol) occ. Area Deprivation Index Answer Date Alec rded National Score (1-100), lower number is lower ri sk Not on file 02/27/2020 State Score (1-10), lower number is lower risk N ot on file 02/27/2020 Data from: https://www.neighborhoodatlas.medicine.[facility].edu/. Last address used for calculation Not on file 02/27/2020 Comments No Sex and Gender Information Value Date Recorded Sex Assigned at Not on file Legal Sex Female 1:23 PM EDT Gender Identity Not on file Sexual Orientation Not on file Last Filed Vital Signs Vital Sign Reading Time Taken Comments Blood Pressure 150/79 12/10/2018 2:34 PM EDT Pulse 90 12/10/2018 2:34 PM EDT Temperature 36.7 C (98 F) 12/10/2018 2:34 PM EDT Respiratory Rate 18 12/10/2018 2:34 PM EDT Oxygen Saturation 99% 12/10/2018 2:3 4 PM EDT Inhaled Oxygen Concentration - - Weight 71.5 kg (157 lb 9.6 oz) 12/10/2018 2:34 PM EDT Height 168.2 cm (5' 6.24 ) 12/10/2018 2 :34 PM EDT verified by 2 care givers Body Mass Index 25.25 12/10/2018 2:34 PM EDT Plan of Treatment Health Maintenance Due Date Last Done Comments Anxiety Screening 10/04/1993 Depression Screening 10/04/1993 HIV Screening 10/04/1993 Hepatitis C Screening 10/04/1993 DTaP,Tdap,Td Vaccine (1 - Tdap) 10/04/1994 Hepatitis B Vaccine (1 of 3 - 19+ 3-dose series) 10/04 Cervical Cancer Screening 10/04/[address] Colonography 10/04/2020 Cologuard (FIT-DNA) 10/04/2020 Colonoscopy 10/04/2020 Colorectal Cancer Screening 10/04/2020 Fecal Occult Blood 10/04/2020 Lipid Screening 10/04/2020 Sigmoidoscopy 10/04/2020 Diabetes Screening 12/10/2021 12/10/2018 Covid-19 Vaccine ( season) 2024 Influenza Vaccine (#1) 2024 Procedures Procedure Name Priority Date/Time Associated Diagnosis Comments COMPREHENSIVE METABOLIC PANEL Routine 12/10/2018 3:09 PM EDT Leukopenia, unspecified type from Last 3 Months or Most Recently Relevant to Health Maintenance Results * (ABNORMAL) COMP METABOLIC PANEL (12/10/2018 3:09 PM EDT) Protein, Total 7.0 6.3 - 8.0 g/dL 12/10/2018 3:40 PM EDT [facility] Albumin 4.5 3.9 - 4.9 g/dL 12/10/2018 3:40 PM EDT [facility] Calcium 9.1 8.5 - 10.2 mg/dL 12/10/2018 3:40 PM EDT [facility] Bilirubin, Total 0.3 0.2 - 1.3 mg/dL 12/10/2018 3:40 PM EDT [facility] Alkaline Phosphatase 52 34 - 123 U/L 12/10/2018 3:40 PM EDT [facility] Care AST 19 13 - 35 U/L 12/10/2018 3:40 PM EDT [facility] Glucose 134(H) 74 - 99 mg/dL 12/10/2018 3:40 PM EDT [facility] Comment: The [place] Diabetes Association (ADA) provides guidance for cutoff [...] Standards of Medical Care in Diabetes 2016, [place] Diabetes Association. Diabetes Care. 2016.39(Suppl 1). BUN 13 7 - 21 mg/dL 12/10/2018 3:40 PM EDT [facility] Creatinine 0.80 0.58 - 0.96 mg/dL 12/10/2018 3:40 PM EDT [facility] Sodium 139 136 - 144 mmol/L 12/10/2018 3:40 PM EDT [facility] Potassium 3.8 3.7 - 5.1 mmol/L 12/10/2018 3:40 PM EDT [facility] Chloride 103 97 - 105 mmol/L 12/10/2018 3:40 PM EDT [facility] CO2 26 22 - 30 mmol/L 12/10/2018 3:40 PM EDT [facility] Anion Gap 10 9 - 18 mmol/L 12/10/2018 3:40 PM EDT [facility] ALT 11 7 - 38 U/L 12/10/2018 3:40 PM EDT [facility] eGFR- >60 12/10/2018 3:40 PM EDT [facility] eGFR-All Other Races >60 . 12/10/2018 3:40 PM EDT [facility] Comment: eGFR (Estimated GFR) Units of measure: [...] eGFR may not accurately reflect actual GFR. Blood specimen (specimen) BLOOD SPECIMEN / Unknown 12/10/2018 3:09 PM EDT 12/10/2018 3:17 PM EDT us Henrik Conde MD LABORATORY Final Result [address] [address] [facility] [address] from Last 3 Months or Most Recently Relevant to Health Maintenance Care Teams Catering Attendant Relationship Specialty Start Date End Date Benito Hodges MD [address] [place] [address] PCP - General Family Medicine 12/04/18
--- OUTSIDE RECORDS SUMMARY | 2024-12-30 07:28 | XMS_ITS | Patient Health Record ---
Author Organization [facility] Address [address] [place] [address] Care Team Providers Care Accountant Assistant Name Role Phone Jacek Juan David Primary Care Provider Allergies Allergen (clinical drug ingredient) Drug/Non Drug Allergy documented on EMR Reaction Allergy Type Onset Date Status lisinopril Lisinopril Severe Cough Drug Allergy Ac tive Results Component Value Reference Range Notes US aorta Reviewed date:08/21/2024 09:25:20 PM Interpretation: Performing Lab: Notes/Report: Source Facility: [place] [address] Ultrasound Report Signed Patient: DELANEY FRASER MR#: [id number] : 1975 Acct:[id number] Age/Sex: 48 / F ADM Date: 08/21/24 Loc: US Attending Dr: Massimo Corado M.D. Ordering Physician: Massimo Corado M.D. Date of Service: 08/21/24 Procedure(s): US aorta Accession Number(s): [id number] cc: Massimo Corado M.D. [place] [id number] Patient Name: DELANEY FRASER MRN: [id number] date: 1975 Sex: F Assigned Patient Location: US Current Patient Location: US Accession/Order Number: [id number] Exam Date: 08/21/2024 08:42 Report Date: 08/21/2024 08:44 At the request of: MASSIMO CORADO MD Procedure: US aorta ULTRASOUND AORTA CLINICAL DATA: Family history of aortic aneurysm COMPARISON: None Real-time ultrasound evaluation of the abdominal aorta was performed. No aneurysm is identified. Proximally, the aorta measures 2.1 x 2.1 cm. At the midsegment, the aorta measures 1.5 x 1.7 cm. Distally, the aorta measures 1.4 x 1.7 cm. The bifurcation is visualized and the iliac arteries are normal caliber. No periaortic fluid is seen. US/US aorta IMPRESSION: NO AORTIC ANEURYSM. Impression dictated by: Lety Denton M.D. 08/21/2024 8:44 AM Dictation Location: [place] [address] Electronically authenticated by: [id number] Y Date: 08/21/2024 08:44 Dictated By: Lety Denton M.D. Signed By: 08/21/2447 DD/ TD/TT: Care Program Director: FAZAL T3 Reviewed date:08/21/2024 09:25:20 PM Interpretation: Performing Lab: Notes/Report: [facility] T3 2.37 2.18-3.98 pg/mL Performing Lab: see note ML - [facility] GLYCOHEMOGLOBIN A1C Reviewed date:08/21/2024 09:25:20 PM Interpretation: Performing Lab: Notes/Report: [facility] , Glycohemoglobin A1C 5.3 4.5-6.2 % ADA THERAPEUTIC TARGET < 7.0 ADA RECOMMENDED LIMIT 4.0 - 6.0 ACTION SUGGESTED > 7.0 Estimated Average Glucose 105 Performing Lab: see note ML - [facility] LB IRON Reviewed date:08/21/2024 09:25:20 PM Interpretation: Performing Lab: Notes/Report: [facility] , Iron 142.0 50.0-170.0 ug/dL Performing Lab: see note ML - [facility] LB LIPID PROFILE Reviewed date:08/21/2024 09:25:20 PM Interpretation: Performing Lab: Notes/Report: [facility] , Triglycerides 94 <=150 mg/dL Cholesterol 191 <=200 mg/dL HDL Cholesterol 70 40-60 mg/dL <40 mg/dl - HIGH CARDIOVASCULAR RISK > or =60 mg/dl - LOW CARDIOVASCULAR RISK LDL Cholesterol Calculated 103.0 160-189 mg/dl HIGH 100-129 mg/dl NEAR OR ABOVE OPTIMAL >190 mg/dl VERY HIGH <100 mg/dl OPTIMAL 130-159 mg/dl BORDERLINE HIGH VLDL CHOLESTEROL 18.8 Chol HDL Ratio 2.7 4.4 - 7.1 AVERAGE RISK 7.1 - 11.0 MODERATE RISK >11.0 HIGH RISK 3.3 - 4.4 LOW RISK Performing Lab: see note - [facility] LB PROF 14(COMP METB) Reviewed date:08/21/2024 09:25:20 PM Interpretation: Performing Lab: Notes/Report: [facility] , Sodium 141 136-145 mmol/L Potassium 4.3 3.5-5.1 mmol/L Chloride 105 98-107 mmol/L Carbon Dioxide 28.1 21.0-32.0 mmol/L Anion Gap 12.2 Glucose 96 74-106 mg/dL Blood Urea Nitrogen 14.0 7.0-18.0 mg/dL Creatinine 0.88 0.55-1.02 mg/dL Estimated GFR ( Nelia >60 >=60 mL/min/1.73m 2 Estimated GFR (Non- Maribel >60 >=60 mL/min/1.73m 2 BUN Creatinine Ratio 15.9 Calcium 9.0 8.5-10.1 mg/dL Bilirubin Total 0.5 0.2-1.0 mg/dL Aspartate Amino Transferase 21 15-37 U/L Alanine Aminotransferase 20 14-59 U/L Alkaline Phosphatase 55 46-116 U/L Total Protein 6.9 6.4-8.2 g/dL Albumin Level 3.2 3.4-5.0 g/dL Globulin 3.7 Albumin Globulin Ratio 0.9 Performing Lab: see note ML - [facility] LB T4 Reviewed date:08/21/2024 09:25:20 PM Interpretation: Performing Lab: Notes/Report: [facility] , T4 Thyroxine 7.90 4.80-13.90 ug/dL Performing Lab: see note ML - [facility] LB TSH Reviewed date:08/21/2024 09:25:20 PM Interpretation: Performing Lab: Notes/Report: [facility] , Thyroid Stimulating Hormone 2.241 0.358-3.740 u IU/mL Performing Lab: see note ML - [facility] LB CBC AUTO DIFF Reviewed date:08/21/2024 09:25:20 PM Interpretation: Performing Lab: Notes/Report: [facility] , White Blood Count 4.9 4.0-11.0 10 3/uL Red Blood Count 4.10 4.20-5.40 10 6/uL Hemoglobin 13.2 12.0-16.0 g/dL Hematocrit 38.2 36.0-48.0 % Mean Corpuscular Volume 93.2 81.0-99.0 fL Mean Corpuscular Hemoglobin 32.2 26.7-34.0 pg Mean Corpuscular HGB Conc 34.6 29.9-35.2 g/dL Red Cell Distribution Width 12.0 11.0-15.0 % Platelet Count 207 150-450 10 3/uL Mean Platelet Volume 11.1 9.5-13.5 fL Neutrophils Percent Auto 56.1 43.0-75.0 % Lymphocytes Percent Auto 34.8 20.5-60.0 % Monocytes Percent Auto 7.1 1.7-12.0 % Eosinophils Percent Auto 1.2 0.9-7.0 % Basophils Percent Auto 0.6 0.2-2.0 % Immature Granulocytes Pct Auto 0.2 0.0-0.5 % Neutrophils Absolute Auto 2.8 1.4-6.5 10 3/uL Lymphocytes Absolute Auto 1.7 1.2-3.8 10 3/uL Monocytes Absolute Auto 0.4 0.3-0.8 10 3/uL Eosinophils Absolute Auto 0.1 0.0-0.7 10 3/uL Basophils Absolute Auto 0.0 0.0-0.1 10 3/uL Immature Granulocytes Abs Auto 0.01 0.00-0.03 10 3/uL Performing Lab: see note ML - [facility] LB XR hip BI w PEL 1V Reviewed date:04/24/2024 05:07:48 PM Interpretation: Performing Lab: Notes/Report: Source Facility: [facility]-[address] [place] [address] [place] [address] XRay Report Signed Patient: DELANEY FRASER MR#: [id number] : 1975 Acct:[id number] Age/Sex: 48 / F ADM Date: 04/23/24 Loc: RAD Attending Dr: Massimo Corado M.D. Ordering Physician: Massimo Corado M.D. Date of Service: 04/23/24 Procedure(s): XR hip BI w PEL 1V Accession Number(s): [id number] cc: Massimo Corado M.D. [place] [address] Patient Name: DELANEY FRASER MRN: [id number] date: 1975 Sex: F Assigned Patient Location: [facility] Current Patient Location: Accession/Order Number: [id number] Exam Date: 04/23/2024 13:16 Report Date: 04/24/2024 16:04 At the request of: MASSIMO CORADO Procedure: XR hip BI w PEL 1V EXAMINATION: XR hip BI w PEL 1V HISTORY: Bilateral Hip Pain COMPARISON: No relevant comparison available. FINDINGS: RIGHT FINDINGS: BONES: No significant arthropathy or acute abnormality. SOFT TISSUES: No visible soft tissue swelling. OTHER: Negative. LEFT FINDINGS: BONES: No significant arthropathy or acute abnormality. SOFT TISSUES: No visible soft tissue swelling. OTHER: Negative. XR/XR hip BI w PEL 1V IMPRESSION: RIGHT CONCLUSION: No acute bone abnormality or significant degenerative changes. LEFT CONCLUSION: No acute bone abnormality or significant degenerative changes. Electronically authenticated by: HELADIO WILLIS Date: 04/24/2024 16:04 Dictated By: Heladio Willis M.D. Signed By: 04/24/24 1606 DD/ 1604 TD/TT: Care Program Director: Reason For Referral No Information Medications Medication SIG (Take, Route, Frequency, Duration) Notes Start Date End Date Status Diclofenac Sodium 75 MG 1 tablet as need ed Orally Twice a day; Duration: 30 days 11/29/2023 Active DULoxetine HCl 60 MG TAKE 1 CAPSULE BY M OUTH EVERY DAY; Duration: 90 Active Irbesartan 150 MG 1 tablet Orally Once a day; Duration: 30 days 03/12/2024 Active Munira 0.25-35 MG-MCG TAKE 1 TABLET BY RAMOS TH EVERY DAY IN THE MORNING Oral; Duration: 28 Days Active Amoxicillin-Pot Clavulanate 875-125 MG 1 tablet Orally every 12 hrs; Duration: 10 days 12/03/2024 Active tiZANidine HCl 4 MG 2 tabs Orally qhs; Duration: 30 days PRN 11/29/2023 Active Social History Tobacco Use: Social History Observation Description Date Details (start date - stop date) Never Smoker NA - NA Tobacco Use/Smoking Question Answer Notes Patient is a nonsmoker Problems Problem Type SNOMED Code ICD Code Onset Dates Problem Status W/U Status Risk Notes Problem Generalized anxiety disorder (89544853) Generalized anxiety disorder (F41.1) Active confirmed Problem Orthostatic hypotension (46879175) Orthostatic hypotension (I95.1) Active confirmed Problem Fatigue (23771222) Fatigue (R53.83) Active confirmed Problem Hypertension (35493194) Hypertension (I10) Active confirmed Problem Back pain (186491027) Back pain (M54.9) Active confirmed Problem Well adult (256487459) Well adult (Z00.00) Active confirmed Problem Low back pain (593976564) Low back pain, unspecified (M54.50) Active confirmed Vital Signs Blood pressure diastolic 90 mm Hg 12/03/2024 Height 65 in 12/03/2024 Blood pressure systolic 122 mm Hg 12/03/2024 Weight 165.2 lbs 12/03/2024 BMI 27.49 kg/m2 12/03/2024 Encounters Encounter Location Date Provider Diagnosis [address] [address] 02/29/2024 Juan David Hoy Orthostatic hypotens ion I95.1 and Hip pain, acute, right M25.[address] [address] 08/14/2024 Juan David Hoy Well adult Z00.[address] [address] 12/03/2024 Juan David Hoy Acute otitis media, unspecified otitis media type H66.90 and Otalgia, unspecified laterality H92.[address] [address] 01/26/2024 Juan David Corado Low back pain, unspecified M54.50 [facility] [address] [place] [address] 03/12/2024 Juan David Corado [facility] [address] [place] [address] 03/19/2024 Juan David Corado [facility] [address] [place] [address] 04/24/2024 Juan David Corado Back pain M54.9 [facility] [address] [place] [address] 08/21/2024 Juan David Corado Assessments Encounter Date Diagnosis (ICD Code) Assessment Notes Treatment Notes Treatment Clinical Notes Section Notes 02/29/2024 Orthostatic hypotension (ICD-10 - I95.1) skiping adipex - plateau 02/29/2024 Hip pain, acute, right (ICD-10 - M25.551) 08/14/2024 Well adult (ICD-10 - Z00.00) 12/03/2024 Acute otitis media, unspecified otitis media type (ICD-10 - H66.90) You have been prescribed antibiotics for otitis media. Antibiotics may bother your stomach, so try taking them with a light meal (unless instructed otherwise by your pharmacist). It is important to take them until they are finished. You can use nzin-nlt-sarfhiw acetaminophen or ibuprofen if needed for pain. You have been prescribed antibiotics. You should be extra vigilant about hand washing or using hand roll cutter gel. You should follow up with your Primary Care Physician or return to clinic if not improving in the next 3-5 days. 01/26/2024 Low back pain, unspecified (ICD-10 - M54.50) 04/24/2024 Back pain (ICD-10 - M54.9) 12/03/2024 Otalgia, unspecified laterality (ICD-10 - H92.09) Plan Of Treatment Pending Test Test Name Order Date CMP (COMPLETE METABOLIC PANEL) HEMOGLOBIN A1C (GLYCO) 11/23/2022 HEMOGLOBIN A1C (GLYCO) 08/14/2024 IRON, TOTAL 08/14/2024 LIPID PANEL (CHOL/TRIG/HDL/LDL) 08/15/19 25 LIPID PANEL (CHOL/TRIG/HDL/LDL) 11/24/19 23 CBC WITH DIFF 11/23/2022 STOOL OCCULT BLOOD 11/23/2022 VIT D 1 25 DIHYDROXY 11/23/2022 XR HIP LT 2 3V W PELVIS 02/29/2024 THYROID PANEL (T4/TSH/FREE T3) 3 THYROID PANEL (T4/TSH/FREE T3) 5 XR HIP RT 2 3V W PELVIS 02/29/2024 CMP (COMP MET SANCHEZ) w/eGFR CKD-EPI 2024 CBC WITH DIFF 08/14/2024 Insurance Providers Payer Name Payer Address Payer Phone Subscriber Number Group Number Insured Name Patient Relationship to Insured Coverage Start Date Coverage End Date [employer] ACCESS PPO PLUS LOCAL PLAN [address] [place] [address] [phone] [id number] Delaney Fraser Self - patient is the insured Medical (General) History Medical History History ICD Code 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
--- NOTE | 2024-12-30 07:55 | MM_ITS ---
Patient Name: LETI FRASER MR#: [id number] : 1975 Exam Date: 12/30/2024 Ordering Doctor: DR. ZAKIA CRUZ D.O. RADIOLOGY REPORT PROCEDURE: MM TOMOSYNTHESIS SCREENING BI COMPARISON: MM TOMOSYNTHESIS SCREENING BI, 12/22/2023. MG MAMM SCREEN 3D MAZIN CAD, 02/25/2022. MG MAMM SCREEN 3D MAZIN CAD, 01/29/2021. MG MAMM MAZIN SCRN W CAD DIG, 11/21/2012. INDICATIONS: Screening Calculator Name NCI Breast Cancer Risk Assessment Tool 5 Year Breast Cancer Risk 0.90% Lifetime Breast Cancer Risk 9.20% Personal Breast Cancer No Personal Ovarian Cancer No Treatments None Family Cancers Father with bladder cancer at age 50; Grandmother-maternal with breast cancer at age 70; Grandmother-paternal with breast cancer at age 70. LOCATION: [facility] BREAST COMPOSITION: The breasts are extremely dense, which lowers the sensitivity of mammography. FINDINGS: RIGHT BREAST: No significant suspicious finding. LEFT BREAST: No significant suspicious finding. Benign-appearing calcification is present. A benign-appearing lymph node is noted along the left chest wall. DIAGNOSTIC CATEGORY 2--BENIGN FINDING. NO CHANGE FROM COMPARISON. RECOMMENDATIONS: ROUTINE MAMMOGRAM AND CLINICAL EVALUATION IN 12 MONTHS. Dictated by: Lefty Ma MD on 12/30/2024 at 09:48 Approved by: Lefty Ma MD on 12/30/2024 at 09:55
== END 2024-12-30 07:26 | disposition home or self-care (01) ==
LOC: MAMMO 07:25
PROVIDERS: PCP Family Medicine; Visit Provider Obstetrics & Gynecology
DX: Z12.31 Encounter for screening mammogram for malignant neoplasm of breast (principal); Z80.52 Family history of malignant neoplasm of bladder; Z80.3 Family history of malignant neoplasm of breast
CPT/HCPCS: 77063; 77067